=== PATIENT | male | born 1965 | race Caucasian/White ===

== ENCOUNTER 2016-10-07 09:01 | Emergency (ER) | payer MEDICARE, MEDICAID ==
--- NOTE | 2016-10-07 09:33 | RAD ---
INDICATION: Chest pain. COMPARISON: Comparison is made with prior chest x-ray study from February 28, 2016. TECHNIQUE: Dual-energy PA and lateral views of the chest were obtained. FINDINGS: The heart is within normal limits in size. Mediastinal and hilar contours appear within normal limits. The lungs are underinflated and clear. No pleural effusion or pneumothorax is seen. IMPRESSION: NO EVIDENCE FOR ACTIVE CARDIOPULMONARY DISEASE.
[2016-10-07 09:42] LABS: Hematocrit 42 % (42-52); Hemoglobin 14.2 g/dl (14.0-18.0); Mean Corpuscular HGB Conc 34 g/dl (31-36); Mean Corpuscular Hemoglobin 33 pg (27-31); Mean Corpuscular Volume 98 fL (80-94); Mean Platelet Volume 8 um3 (7.4-10.4); Red Blood Count 4.26 10^6/ul (4.0-5.4); Red Cell Distribution Width 13 % (10.5-15); White Blood Count 5.9 10^3/ul (3.5-10.8)
[2016-10-07 09:55] LABS: Albumin 4.1 g/dL (3.2-5.2); BUN/Creatinine Ratio 14.5 (8-20); Calcium 9.1 mg/dL (8.6-10.3); EGFR African American 126.6 (>60); EGFR Non-African American 98.5 (>60); Globulin 2.3 g/dL (2-4); Magnesium 1.7 mg/dL (1.9-2.7); Total Bilirubin 0.5 mg/dL (0.2-1.0); Total Protein 6.4 g/dL (6.4-8.9)
[2016-10-07 09:57] LABS: Urine Bacteria Absent (Absent); Urine Bilirubin Negative (Negative); Urine Glucose 3+(>=500 mg/dL) (Negative); Urine Nitrite Negative (Negative)
[2016-10-07] MEDS ORDERED: NS 0.9% 1000 ML* 1,000 ML IV ONE (10:24)
[2016-10-07] MEDS ORDERED: Acetaminophen TAB* 325 MG PO ONE (10:24)
[2016-10-07 11:17] LABS: Potassium 4.3 mmol/L (3.5-5.0)
[2016-10-07 11:20] LABS: TSH (Thyroid Stimulating Horm) 0.68 mcIU/mL (0.34-5.60)
[2016-10-07 13:20] VITALS: BP 130/75
--- NOTE | 2016-10-07 14:09 | ED ---
Gaby Burgos Auryana, scribed for Aleksander Gaston MD on 10/07/16 at 0922 . HPI Chest Pain - HPI Summary HPI Summary: 51 year old male presents left sided chest pain and epigastric pain s/p eating breakfast at 07:30 today. He reports that the pain is a 7/10 but does not radiate. The pain is characterized as sharp and dull. He also has nausea, and diaphoresis. Patient does reports similar symptoms in February 2016 - received stress test - negative. PMHx is significant for DM, PTSD, depression, and alcoholism. - History of Current Complaint Chief Complaint: EDChestPainROMI Time Seen by Provider: 10/07/16 09:05 Hx Obtained From: Patient Onset/Duration: Started Hours Ago, Still Present Time of Onset: 07:30 Timing: Constant, Lasting Hours Initial Severity: Moderate Current Severity: Moderate Pain Intensity: 7 Pain Scale Used: 0-10 Numeric Chest Pain Location: Discrete at: - left side of chest Chest Pain Radiates: No Character: Dull/Aching, Sharp/Stabbing Associated Signs and Symptoms: Positive: Chest Pain, Diaphoresis, Nausea Related History: Similar Episode/Dx as: - yes- SEE HPI - Additional Pertinent History Primary Care Physician: [id number] - Allergy/Home Medications Allergies/Adverse Reactions: Allergies Allergy/AdvReac Type Severity Reaction Status Date / Time Quetiapine AdvReac Severe psychiatic Verified 03/03/15 14:50 reaction Clozapine [From Clozaril] AdvReac Intermediate worsens Verified 03/03/15 14:50 diabetes NSAIDs AdvReac Intermediate Bleeding Verified 03/03/15 14:50 Metformin AdvReac cannot Verified 03/03/15 14:50 tolerate PMH/Surg Hx/FS Hx/Imm Hx Endocrine/Hematology History: Reports: Hx Diabetes, Hx Anemia Denies: Hx Thyroid Disease Cardiovascular History: Reports: Hx Angina, Hx Hypercholesterolemia, Hx Hypertension - ON DAILY MEDS Denies: Hx Congestive Heart Failure, Hx Coronary Artery Disease, Hx Myocardial Infarction, Hx Peripheral Vascular Disease, Hx Valvular Heart Disease Respiratory History: Reports: Hx Asthma, Hx Chronic Obstructive Pulmonary Disease (COPD), Hx Pneumonia, Hx Sleep Apnea - NOT USING CPAP ANY MORE, Other Respiratory Problems/Disorders - PNEUMONIA, LAST WINTER GI History: Reports: Hx Gall Bladder Disease - removed in 1999, Hx Gastroesophageal Reflux Disease - ACID REFLUX, Hx Irritable Bowel, Hx Jaundice Denies: Hx Ulcer History: Reports: Other Problems/Disorders - OCCASIONAL HESITATION Denies: Hx Renal Disease Musculoskeletal History: Reports: Hx Arthritis - GENERAL, Hx Tendonitis - SHOULDERS, Other Musculoskeletal History - ankle fs Sensory History: Reports: Hx Cataracts - RT EYE, Hx Contacts or Glasses, Other Sensory Impairments - LENS IMPLANTS BILATERAL Opthamlomology History: Reports: Hx Cataracts - RT EYE, Hx Contacts or Glasses, Other Sensory Impairments - LENS IMPLANTS BILATERAL Neurological History: Reports: Hx Developmental Delay - AUTISM, Other Neuro Impairments/Disorders - HEAD INJURY AT 4 YEARS OLD Psychiatric History: Reports: Hx Anxiety - MEDS, Hx Depression, Hx Post Traumatic Stress Disorder - self reported, Hx Bipolar Disorder, Other Psychiatric Issues/Disorders - AUTISTIC Denies: Hx Eating Disorder, Hx of Violent Episodes Against Others - Pt does have concerns that he will become aggressive with his neighbors. - Surgical History Surgery Procedure, Year, and Place: 2003 LEFT ankle FRACTURE BURNT CABINS. wisdom teeth. 1999 cholecystectomy; BURNT CABINS. 2009 LEFT EYE cataract [facility] Hx Anesthesia Reactions: No - Immunization History Date of Tetanus Vaccine: unknown Date of Influenza Vaccine: unknown Infectious Disease History: No Infectious Disease History: Denies: Hx Clostridium Difficile, Hx Hepatitis, Hx Human Immunodeficiency Virus (HIV), Hx of Known/Suspected MRSA, Hx Shingles, Hx Tuberculosis, Traveled Outside the [place] in Last 30 Days - Family History Known Family History: Positive: Diabetes - Social History Alcohol Use: None Alcohol Amount: RECOVERING ALCOHOLIC, 2003 Substance Use Type: Reports: None Hx Tobacco Use: Yes Smoking Status (MU): Heavy Every Day Tobacco Smoker Type: Cigarettes Amount Used/How Often: 1/2 PPD 27 YRS Length of Time of Smoking/Using Tobacco: 30 years Have You Smoked in the Last Year: Yes Review of Systems Positive: Skin Diaphoresis. Negative: Fever Eyes: Negative ENT: Negative Positive: Chest Pain - left sided Respiratory: Negative Positive: Abdominal Pain - epigastric , Nausea Genitourinary: Negative Musculoskeletal: Negative Skin: Negative Neurological: Negative Psychological: Normal All Other Systems Reviewed And Are Negative: Yes Physical Exam - Summary Physical Exam Summary: VITAL SIGNS: Reviewed. GENERAL: Patient is a well developed and nourished male who is lying comfortable in the stretcher. Patient is not in any acute respiratory distress. HEAD AND FACE: No signs of trauma. No ecchymosis, hematomas or skull depressions. No sinus tenderness. EYES: PERRLA, EOMI x 2, No injected conjunctiva, no nystagmus. EARS: Hearing grossly intact. Ear canals and tympanic membranes are within normal limits. MOUTH: Oropharynx within normal limits. NECK: Supple, trachea is midline, no adenopathy, no JVD, no carotid bruit, no c- spine tenderness, neck with full ROM. CHEST: Symmetric, no tenderness at palpation LUNGS: Clear to auscultation bilaterally. No wheezing or crackles. CVS: Regular rate and rhythm, S1 and S2 present, no murmurs or gallops appreciated. ABDOMEN: Soft, non-tender. No signs of distention. No rebound no guarding, and no masses palpated. Bowel sounds are normal. EXTREMITIES: FROM in all major joints, no edema, no cyanosis or clubbing. NEURO: Alert and oriented x 3. No acute neurological deficits. Speech is normal and follows commands. SKIN: Dry and warm Triage Information Reviewed: Yes Vital Signs On Initial Exam: Initial Vitals Temp Pulse Resp Pulse Ox 98.7 F 89 24 95 10/07/16 09:03 10/07/16 09:03 10/07/16 09:03 10/07/16 09:03 Vital Signs Reviewed: Yes Diagnostics - Vital Signs Vital Signs Temp Pulse Resp BP Pulse Ox 10/07/16 09:07 98.7 F 85 25 138/74 95 10/07/16 09:03 98.7 F 89 24 95 - Laboratory Lab Results: Lab Results 10/07/16 10/07/16 10/07/16 Range/Units 09:21 09:21 09:21 WBC 5.9 (3.5-10.8) 10^3/ul RBC 4.26 (4.0-5.4) 10^6/ul Hgb 14.2 (14.0-18.0) g/dl Hct 42 (42-52) % MCV 98 H (80-94) fL MCH 33 H (27-31) pg MCHC 34 (31-36) g/dl RDW 13 (10.5-15) % Plt Count 169 (150-450) 10^3/ul MPV 8 (7.4-10.4) um3 Neut % (Auto) 56.3 (38-83) % Lymph % (Auto) 32.8 (25-47) % [place] % (Auto) 6.8 (1-9) % Eos % (Auto) 3.2 (0-6) % Baso % (Auto) 0.9 (0-2) % Absolute Neuts (auto) 3.3 (1.5-7.7) 10^3/ul Absolute Lymphs (auto) 1.9 (1.0-4.8) 10^3/ul Absolute Monos (auto) 0.4 (0-0.8) 10^3/ul Absolute Eos (auto) 0.2 (0-0.6) 10^3/ul Absolute Basos (auto) 0.1 (0-0.2) 10^3/ul Absolute Nucleated RBC 0 10^3/ul Nucleated RBC % 0 Sodium 130 L (133-145) mmol/L Potassium Pending Chloride 97 L (101-111) mmol/L Carbon Dioxide 23 (22-32) mmol/L Anion Gap Pending BUN 12 (6-24) mg/dL Creatinine 0.83 (0.67-1.17) mg/dL Est GFR ( Amer) 126.6 (>60) Est GFR (Non-Af Amer) 98.5 (>60) BUN/Creatinine Ratio 14.5 (8-20) Glucose 355 H (70-100) mg/dL Lactic Acid 3.6 H* (0.5-2.0) mmol/L Calcium 9.1 (8.6-10.3) mg/dL Magnesium 1.7 L (1.9-2.7) mg/dL Total Bilirubin 0.50 (0.2-1.0) mg/dL AST Pending ALT 42 (7-52) U/L Alkaline Phosphatase 45 (34-104) U/L Total Creatine Kinase 112 (10-223) U/L CK-MB (CK-2) 3.2 (0.6-6.3) ng/mL Troponin I 0.00 (<0.04) ng/mL B-Natriuretic Peptide ( - 100) pg/mL Total Protein 6.4 (6.4-8.9) g/dL Albumin 4.1 (3.2-5.2) g/dL Globulin 2.3 (2-4) g/dL Albumin/Globulin Ratio 1.8 (1-3) TSH Pending Urine Color Urine Appearance Urine pH (5-9) Ur Specific [place] (1.010-1.030) Urine Protein (Negative) Urine Ketones (Negative) Urine Blood (Negative) Urine Nitrate (Negative) Urine Bilirubin (Negative) Urine Urobilinogen (Negative) Ur Leukocyte Esterase (Negative) Urine WBC (Auto) (Absent) Urine RBC (Auto) (Absent) Urine Bacteria (Absent) Urine Glucose (Negative) 10/07/16 10/07/16 Range/Units 09:21 09:30 WBC (3.5-10.8) 10^3/ul RBC (4.0-5.4) 10^6/ul Hgb (14.0-18.0) g/dl Hct (42-52) % MCV (80-94) fL MCH (27-31) pg MCHC (31-36) g/dl RDW (10.5-15) % Plt Count (150-450) 10^3/ul MPV (7.4-10.4) um3 Neut % (Auto) (38-83) % Lymph % (Auto) (25-47) % [place] % (Auto) (1-9) % Eos % (Auto) (0-6) % Baso % (Auto) (0-2) % Absolute Neuts (auto) (1.5-7.7) 10^3/ul Absolute Lymphs (auto) (1.0-4.8) 10^3/ul Absolute Monos (auto) (0-0.8) 10^3/ul Absolute Eos (auto) (0-0.6) 10^3/ul Absolute Basos (auto) (0-0.2) 10^3/ul Absolute Nucleated RBC 10^3/ul Nucleated RBC % Sodium (133-145) mmol/L Potassium Chloride (101-111) mmol/L Carbon Dioxide (22-32) mmol/L Anion Gap BUN (6-24) mg/dL Creatinine (0.67-1.17) mg/dL Est GFR ( Amer) (>60) Est GFR (Non-Af Amer) (>60) BUN/Creatinine Ratio (8-20) Glucose (70-100) mg/dL Lactic Acid (0.5-2.0) mmol/L Calcium (8.6-10.3) mg/dL Magnesium (1.9-2.7) mg/dL Total Bilirubin (0.2-1.0) mg/dL AST ALT (7-52) U/L Alkaline Phosphatase (34-104) U/L Total Creatine Kinase (10-223) U/L CK-MB (CK-2) (0.6-6.3) ng/mL Troponin I (<0.04) ng/mL B-Natriuretic Peptide 18 ( - 100) pg/mL Total Protein (6.4-8.9) g/dL Albumin (3.2-5.2) g/dL Globulin (2-4) g/dL Albumin/Globulin Ratio (1-3) TSH Urine Color Yellow Urine Appearance Clear Urine pH 5.0 (5-9) Ur Specific [place] 1.012 (1.010-1.030) Urine Protein Negative (Negative) Urine Ketones Negative (Negative) Urine Blood 1+ H (Negative) Urine Nitrate Negative (Negative) Urine Bilirubin Negative (Negative) Urine Urobilinogen Negative (Negative) Ur Leukocyte Esterase Negative (Negative) Urine WBC (Auto) Absent (Absent) Urine RBC (Auto) Absent (Absent) Urine Bacteria Absent (Absent) Urine Glucose 3+(>=500 mg/dl) H (Negative) Result Diagrams: 10/07/16 09:21 10/07/16 09:21 Lab Statement: Any lab studies that have been ordered have been reviewed, and results considered in the medical decision making process. - Radiology CXR Xray Interpretation: No Acute Changes Radiology Interpretation Completed By: Radiologist - EKG 09:37 EKG Interpretation: sinus rhythm @ 84 BPM, no ST elevation Chest Pain Course/Dx - Course Assessment/Plan: 51 year old male presents left sided chest pain and epigastric pain s/p eating breakfast at 07:30 today. He reports that the pain is a 7/10 but does not radiate. The pain is characterized as sharp and dull. He also has nausea, and diaphoresis. Patient does reports similar symptoms in February 2016 - received stress test - negative. PMHx is significant for DM, PTSD, depression , and alcoholism. Test result without any significant abnormalities except sodium 130, glucose 255, troponin #1 0.00, and troponin #2 0.00. CXR-NAD. UA negative for U.T.I. EKG shows no ST elevations. In ED course, I was going to give insulin but patient decided to take his own humolog. He will keep checking fingers sticks every 4 hours and use humolog as indicated. At this point, the patient is asymptomatic and I will r/o VA with 2x troponins. Patient had a stress test in February (2015) that was negative. Therefore, since the patient is asymptomatic , we will discharge the patient home with follow up with PCP. 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 He was advised to return to the ED if develops another episode of CP with nausea, vomiting or any diaphoresis. All questions were answered at patient satisfaction. There were no further complaints or concerns. Lung exam before discharge: CTA B/L. Good air exchange. No wheezing or crackles heard. CVS: S1 and S2 present. No murmurs appreciated. Patient is alert and oriented x 3. Patient is hemodynamically stable. Patient will be discharged home with follow up PCP in the next 2-3 days - Chest Pain Differential Diagnosis/HQI/PQRI: Acute VA, ACS, Angina, CHF, Chest Wall, GI Disease, Lower Respiratory Infection - Diagnoses Provider Diagnoses: Chest pain, Hyperglycemia Discharge - Discharge Plan Condition: Stable Disposition: HOME Patient Education Materials: Chest Pain (ED) Referrals: Chinmay Pinto MD [Primary Care Provider] - 2 Days The documentation as recorded by the Gaby dunham Auryana accurately reflects the service I personally performed and the decisions made by me, Aleksander Gaston MD.
== END 2016-10-07 13:32 | disposition home or self-care (01) ==
LOC: ED 09:01
DX: R07.9 Chest pain, unspecified (principal); R11.0 Nausea
CPT/HCPCS: 36415; 71020; 80053; 81003; 81015; 82550; 82553; 83605; 83735; 83880; 84443; 84484; 85025; 93005; 99282; A9270-GY

== ENCOUNTER 2016-11-02 11:43 | Emergency (ER) | payer MEDICARE, MEDICAID ==
[2016-11-02] MEDS ORDERED: NS 0.9% 1000 ML* 1,000 ML IV ONE (12:06)
--- NOTE | 2016-11-02 12:32 | RAD ---
HISTORY: Chest pain COMPARISONS: October 07, 2016 VIEWS:1: Single frontal portable view of the chest at 12:20 PM FINDINGS: LINES AND TUBES: None. CARDIOMEDIASTINAL SILHOUETTE: The cardiomediastinal silhouette is normal for portable technique. PLEURA: The costophrenic angles are sharp. No pleural abnormalities are noted. LUNG PARENCHYMA: The lungs are clear. ABDOMEN: The upper abdomen is clear. There is no subphrenic gas. BONES AND SOFT TISSUES: No bone or soft tissue abnormalities are noted. IMPRESSION: NO ACTIVE CARDIOPULMONARY DISEASE.
[2016-11-02 12:46] LABS: Hematocrit 45 % (42-52); Hemoglobin 15.7 g/dl (14.0-18.0); Mean Corpuscular HGB Conc 35 g/dl (31-36); Mean Corpuscular Hemoglobin 33 pg (27-31); Mean Corpuscular Volume 96 fL (80-94); Mean Platelet Volume 8 um3 (7.4-10.4); Red Cell Distribution Width 13 % (10.5-15); White Blood Count 8.5 10^3/ul (3.5-10.8)
[2016-11-02] MEDS ORDERED: hydrOXYzine HCL TAB* 50 MG PO ONE (12:55)
[2016-11-02 13:03] LABS: ALT 37 U/L (7-52); Albumin 4.6 g/dL (3.2-5.2); Alkaline Phosphatase 42 U/L (34-104); BUN/Creatinine Ratio 22.4 (8-20); Blood Urea Nitrogen 22 mg/dL (6-24); CO2 Carbon Dioxide 25 mmol/L (22-32); Calcium 9.7 mg/dL (8.6-10.3); Chloride 96 mmol/L (101-111); Creatine Kinase 92 U/L (10-223); EGFR African American 104.5 (>60); EGFR Non-African American 81.3 (>60); Globulin 2.7 g/dL (2-4); Glucose 211 mg/dL (70-100); Sodium 129 mmol/L (133-145); Total Protein 7.3 g/dL (6.4-8.9)
[2016-11-02 13:15] LABS: Anion Gap 8 mmol/L (2-11)
[2016-11-02 13:23] LABS: TSH (Thyroid Stimulating Horm) 0.76 mcIU/mL (0.34-5.60)
[2016-11-02] MEDS ORDERED: LORazepam INJ* 2 MG/ML 1 ML VIAL IV PUSH ONE (13:51)
[2016-11-02] MEDS ORDERED: HYDROcodone/ACETAMIN 5-325 MG* 1 TAB PO ONE (13:52)
[2016-11-02 14:44] LABS: Urine Bilirubin Negative (Negative); Urine Glucose 3+(>=500 mg/dL) (Negative); Urine Nitrite Negative (Negative)
[2016-11-02 14:47] LABS: Magnesium 2.1 mg/dL (1.9-2.7)
[2016-11-02 15:40] VITALS: BP 120/79
--- NOTE | 2016-11-03 18:17 | ED ---
Ilya Burgos Rebecca, scribed for Aleksander Gaston MD on 11/02/16 at 1206 . HPI Chest Pain - HPI Summary HPI Summary: Pt is a 51 yo male BIBA, presenting to the ED c/o sharp, central chest pain, rating at an 8/10. It began in the afternoon the day before visit. 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 Chest pain is aggravated by palpation. Pt also states feelings of anxiety and anger, starting from the previous night, due to his autism. He says it feels like it is "speeding up inside" his head. Pt c/o of other Sx including nausea, abdominal pain, HARDWICK, leg pain, back pain, and cold sweats. Denies any vomiting or coughing. - History of Current Complaint Chief Complaint: EDChestPainROMI Time Seen by Provider: 11/02/16 12:02 Hx Obtained From: Patient Onset/Duration: Still Present Timing: Intermittent, Lasting Hours Current Severity: Severe Pain Intensity: 8 Pain Scale Used: 0-10 Numeric Chest Pain Location: Discrete at: - Central chest Character: Sharp/Stabbing Aggravating Factor(s): Exertion, Other: - Palpations Alleviating Factor(s): Nothing Associated Signs and Symptoms: Positive: Headaches, Diaphoresis - Cold sweats, Nausea, Back Pain, Abdominal Pain - Additional Pertinent History Primary Care Physician: [id number] - Allergy/Home Medications Allergies/Adverse Reactions: Allergies Allergy/AdvReac Type Severity Reaction Status Date / Time Quetiapine AdvReac Severe psychiatic Verified 03/03/15 14:50 reaction Clozapine [From Clozaril] AdvReac Intermediate worsens Verified 03/03/15 14:50 diabetes NSAIDs AdvReac Intermediate Bleeding Verified 03/03/15 14:50 Metformin AdvReac cannot Verified 03/03/15 14:50 tolerate PMH/Surg Hx/FS Hx/Imm Hx Endocrine/Hematology History: Reports: Hx Diabetes, Hx Anemia Denies: Hx Thyroid Disease Cardiovascular History: Reports: Hx Angina, Hx Hypercholesterolemia, Hx Hypertension - ON DAILY MEDS Denies: Hx Congestive Heart Failure, Hx Coronary Artery Disease, Hx Myocardial Infarction, Hx Peripheral Vascular Disease, Hx Valvular Heart Disease Respiratory History: Reports: Hx Asthma, Hx Chronic Obstructive Pulmonary Disease (COPD), Hx Pneumonia, Hx Sleep Apnea - NOT USING CPAP ANY MORE, Other Respiratory Problems/Disorders - PNEUMONIA, LAST WINTER GI History: Reports: Hx Gall Bladder Disease - removed in 1999, Hx Gastroesophageal Reflux Disease - ACID REFLUX, Hx Irritable Bowel, Hx Jaundice Denies: Hx Ulcer History: Reports: Other Problems/Disorders - OCCASIONAL HESITATION Denies: Hx Renal Disease Musculoskeletal History: Reports: Hx Arthritis - GENERAL, Hx Tendonitis - SHOULDERS, Other Musculoskeletal History - ankle fs Sensory History: Reports: Hx Cataracts - RT EYE, Hx Contacts or Glasses, Other Sensory Impairments - LENS IMPLANTS BILATERAL Opthamlomology History: Reports: Hx Cataracts - RT EYE, Hx Contacts or Glasses, Other Sensory Impairments - LENS IMPLANTS BILATERAL Neurological History: Reports: Hx Developmental Delay - AUTISM, Other Neuro Impairments/Disorders - HEAD INJURY AT 4 YEARS OLD Psychiatric History: Reports: Hx Anxiety - MEDS, Hx Depression, Hx Post Traumatic Stress Disorder - self reported, Hx Bipolar Disorder, Other Psychiatric Issues/Disorders - AUTISTIC Denies: Hx Eating Disorder, Hx of Violent Episodes Against Others - Pt does have concerns that he will become aggressive with his neighbors. - Surgical History Surgery Procedure, Year, and Place: 2003 LEFT ankle FRACTURE [facility]. wisdom teeth. 1999 cholecystectomy; [facility]. 2009 LEFT EYE cataract [facility] Hx Anesthesia Reactions: No - Immunization History Date of Tetanus Vaccine: unknown Date of Influenza Vaccine: unknown Infectious Disease History: No Infectious Disease History: Denies: Hx Clostridium Difficile, Hx Hepatitis, Hx Human Immunodeficiency Virus (HIV), Hx of Known/Suspected MRSA, Hx Shingles, Hx Tuberculosis, Traveled Outside the [place] in Last 30 Days - Family History Known Family History: Positive: Diabetes - Social History Alcohol Use: None Alcohol Amount: RECOVERING ALCOHOLIC, 2003 Substance Use Type: Reports: None Hx Tobacco Use: Yes Smoking Status (MU): Heavy Every Day Tobacco Smoker Type: Cigarettes Amount Used/How Often: 1/2 PPD 27 YRS Length of Time of Smoking/Using Tobacco: 30 years Have You Smoked in the Last Year: Yes Review of Systems Positive: Skin Diaphoresis - Cold sweats Positive: Chest Pain - Central, sharp pain Negative: Cough Positive: Abdominal Pain, Nausea. Negative: Vomiting Positive: Other - Leg and Back pain Positive: Headache Positive: Anxious, Other - Anger All Other Systems Reviewed And Are Negative: Yes Physical Exam - Summary Physical Exam Summary: VITAL SIGNS: Reviewed. GENERAL: ~Patient is an obese male who is lying comfortable in the stretcher. ~ Patient is not in any acute respiratory distress. HEAD AND FACE: No signs of trauma. ~No ecchymosis, hematomas or skull depressions. No sinus tenderness. EYES: PERRLA, EOMI x 2, No injected conjunctiva, no nystagmus. EARS: Hearing grossly intact. Ear canals and tympanic membranes are within normal limits. MOUTH: Oropharynx within normal limits. NECK: Supple, trachea is midline, no adenopathy, no JVD, no carotid bruit, no c- spine tenderness, neck with full ROM. CHEST: Symmetric. Reproducible chest pain. LUNGS: Clear to auscultation bilaterally. No wheezing or crackles. CVS: Regular rate and rhythm, S1 and S2 present, no murmurs or gallops appreciated. ABDOMEN: Soft, non-tender. No signs of distention. No rebound no guarding, and no masses palpated. Bowel sounds are normal. EXTREMITIES: FROM in all major joints, no edema, no cyanosis or clubbing. No swelling NEURO: Alert and oriented x 3. No acute neurological deficits. Speech is normal and follows commands. SKIN: Dry and warm Triage Information Reviewed: Yes Vital Signs On Initial Exam: Initial Vitals Temp Pulse Resp BP Pulse Ox 97.5 F 86 26 129/77 96 11/02/16 11:47 11/02/16 11:47 11/02/16 11:47 11/02/16 11:47 11/02/16 11:47 Vital Signs Reviewed: Yes Diagnostics - Vital Signs Vital Signs Temp Pulse Resp BP Pulse Ox 11/02/16 11:47 97.5 F 86 26 129/77 96 - Laboratory Lab Results: Lab Results 11/02/16 11/02/16 11/02/16 Range/Units 12:35 12:35 12:35 WBC 8.5 (3.5-10.8) 10^3/ul RBC 4.70 (4.0-5.4) 10^6/ul Hgb 15.7 (14.0-18.0) g/dl Hct 45 (42-52) % MCV 96 H (80-94) fL MCH 33 H (27-31) pg MCHC 35 (31-36) g/dl RDW 13 (10.5-15) % Plt Count 193 (150-450) 10^3/ul MPV 8 (7.4-10.4) um3 Neut % (Auto) 62.4 (38-83) % Lymph % (Auto) 27.2 (25-47) % Falls % (Auto) 6.8 (1-9) % Eos % (Auto) 2.0 (0-6) % Baso % (Auto) 1.6 (0-2) % Absolute Neuts (auto) 5.3 (1.5-7.7) 10^3/ul Absolute Lymphs (auto) 2.3 (1.0-4.8) 10^3/ul Absolute Monos (auto) 0.6 (0-0.8) 10^3/ul Absolute Eos (auto) 0.2 (0-0.6) 10^3/ul Absolute Basos (auto) 0.1 (0-0.2) 10^3/ul Absolute Nucleated RBC 0.01 10^3/ul Nucleated RBC % 0.2 Sodium 129 L (133-145) mmol/L Potassium TNP Chloride 96 L (101-111) mmol/L Carbon Dioxide 25 (22-32) mmol/L Anion Gap 8 (2-11) mmol/L BUN 22 (6-24) mg/dL Creatinine 0.98 (0.67-1.17) mg/dL Est GFR ( Amer) 104.5 (>60) Est GFR (Non-Af Amer) 81.3 (>60) BUN/Creatinine Ratio 22.4 H (8-20) Glucose 211 H (70-100) mg/dL Lactic Acid 1.4 (0.5-2.0) mmol/L Calcium 9.7 (8.6-10.3) mg/dL Magnesium TNP Total Bilirubin 0.40 (0.2-1.0) mg/dL AST TNP ALT 37 (7-52) U/L Alkaline Phosphatase 42 (34-104) U/L Total Creatine Kinase 92 (10-223) U/L CK-MB (CK-2) 2.7 (0.6-6.3) ng/mL Troponin I 0.00 (<0.04) ng/mL B-Natriuretic Peptide ( - 100) pg/mL Total Protein 7.3 (6.4-8.9) g/dL Albumin 4.6 (3.2-5.2) g/dL Globulin 2.7 (2-4) g/dL Albumin/Globulin Ratio 1.7 (1-3) TSH 0.76 (0.34-5.60) mcIU/mL Thyroxine (T4) 5.50 L (6.09-12.23) mcg/mL Urine Color Urine Appearance Urine pH (5-9) Ur Specific [place] (1.010-1.030) Urine Protein (Negative) Urine Ketones (Negative) Urine Blood (Negative) Urine Nitrate (Negative) Urine Bilirubin (Negative) Urine Urobilinogen (Negative) Ur Leukocyte Esterase (Negative) Urine Glucose (Negative) 11/02/16 11/02/16 11/02/16 Range/Units 12:35 13:55 14:30 WBC (3.5-10.8) 10^3/ul RBC (4.0-5.4) 10^6/ul Hgb (14.0-18.0) g/dl Hct (42-52) % MCV (80-94) fL MCH (27-31) pg MCHC (31-36) g/dl RDW (10.5-15) % Plt Count (150-450) 10^3/ul MPV (7.4-10.4) um3 Neut % (Auto) (38-83) % Lymph % (Auto) (25-47) % Falls % (Auto) (1-9) % Eos % (Auto) (0-6) % Baso % (Auto) (0-2) % Absolute Neuts (auto) (1.5-7.7) 10^3/ul Absolute Lymphs (auto) (1.0-4.8) 10^3/ul Absolute Monos (auto) (0-0.8) 10^3/ul Absolute Eos (auto) (0-0.6) 10^3/ul Absolute Basos (auto) (0-0.2) 10^3/ul Absolute Nucleated RBC 10^3/ul Nucleated RBC % Sodium (133-145) mmol/L Potassium 4.2 Chloride (101-111) mmol/L Carbon Dioxide (22-32) mmol/L Anion Gap (2-11) mmol/L BUN (6-24) mg/dL Creatinine (0.67-1.17) mg/dL Est GFR ( Amer) (>60) Est GFR (Non-Af Amer) (>60) BUN/Creatinine Ratio (8-20) Glucose (70-100) mg/dL Lactic Acid (0.5-2.0) mmol/L Calcium (8.6-10.3) mg/dL Magnesium 2.1 Total Bilirubin (0.2-1.0) mg/dL AST 37 ALT (7-52) U/L Alkaline Phosphatase (34-104) U/L Total Creatine Kinase (10-223) U/L CK-MB (CK-2) (0.6-6.3) ng/mL Troponin I (<0.04) ng/mL B-Natriuretic Peptide 24 ( - 100) pg/mL Total Protein (6.4-8.9) g/dL Albumin (3.2-5.2) g/dL Globulin (2-4) g/dL Albumin/Globulin Ratio (1-3) TSH (0.34-5.60) mcIU/mL Thyroxine (T4) (6.09-12.23) mcg/mL Urine Color Straw Urine Appearance Clear Urine pH 5.0 (5-9) Ur Specific [place] 1.012 (1.010-1.030) Urine Protein Negative (Negative) Urine Ketones Negative (Negative) Urine Blood Negative (Negative) Urine Nitrate Negative (Negative) Urine Bilirubin Negative (Negative) Urine Urobilinogen Negative (Negative) Ur Leukocyte Esterase Negative (Negative) Urine Glucose 3+(>=500 mg/dl) H (Negative) 11/02/16 Range/Units 15:15 WBC (3.5-10.8) 10^3/ul RBC (4.0-5.4) 10^6/ul Hgb (14.0-18.0) g/dl Hct (42-52) % MCV (80-94) fL MCH (27-31) pg MCHC (31-36) g/dl RDW (10.5-15) % Plt Count (150-450) 10^3/ul MPV (7.4-10.4) um3 Neut % (Auto) (38-83) % Lymph % (Auto) (25-47) % Falls % (Auto) (1-9) % Eos % (Auto) (0-6) % Baso % (Auto) (0-2) % Absolute Neuts (auto) (1.5-7.7) 10^3/ul Absolute Lymphs (auto) (1.0-4.8) 10^3/ul Absolute Monos (auto) (0-0.8) 10^3/ul Absolute Eos (auto) (0-0.6) 10^3/ul Absolute Basos (auto) (0-0.2) 10^3/ul Absolute Nucleated RBC 10^3/ul Nucleated RBC % Sodium (133-145) mmol/L Potassium Chloride (101-111) mmol/L Carbon Dioxide (22-32) mmol/L Anion Gap (2-11) mmol/L BUN (6-24) mg/dL Creatinine (0.67-1.17) mg/dL Est GFR ( Amer) (>60) Est GFR (Non-Af Amer) (>60) BUN/Creatinine Ratio (8-20) Glucose (70-100) mg/dL Lactic Acid (0.5-2.0) mmol/L Calcium (8.6-10.3) mg/dL Magnesium Total Bilirubin (0.2-1.0) mg/dL AST ALT (7-52) U/L Alkaline Phosphatase (34-104) U/L Total Creatine Kinase (10-223) U/L CK-MB (CK-2) (0.6-6.3) ng/mL Troponin I 0.00 (<0.04) ng/mL B-Natriuretic Peptide ( - 100) pg/mL Total Protein (6.4-8.9) g/dL Albumin (3.2-5.2) g/dL Globulin (2-4) g/dL Albumin/Globulin Ratio (1-3) TSH (0.34-5.60) mcIU/mL Thyroxine (T4) (6.09-12.23) mcg/mL Urine Color Urine Appearance Urine pH (5-9) Ur Specific [place] (1.010-1.030) Urine Protein (Negative) Urine Ketones (Negative) Urine Blood (Negative) Urine Nitrate (Negative) Urine Bilirubin (Negative) Urine Urobilinogen (Negative) Ur Leukocyte Esterase (Negative) Urine Glucose (Negative) Result Diagrams: 11/02/16 12:35 11/02/16 13:55 Lab Statement: Any lab studies that have been ordered have been reviewed, and results considered in the medical decision making process. - Radiology CXR Xray Interpretation: No Acute Changes - NO ACTIVE CARDIOPULMONARY DISEASE. Radiology Interpretation Completed By: Radiologist - EKG 1457 Cardiac Rate: NL - 79 bpm EKG Rhythm: Sinus Rhythm ST Segment: Normal EKG Interpretation: No ST elevations, Q waves in V2 Re-Evaluation - Re-Evaluation First Eval Re-Evaluation Time: 15:56 Change: Improved Comment: Has no CP or pain anywhere. Anxiety is gone after administration of Ativan. Chest Pain Course/Dx - Course Assessment/Plan: Pt is a 51 yo male SUSANA, presenting to the ED c/o sharp, central chest pain, rating at an 8/10. It began in the afternoon the day before visit. 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 Chest pain is aggravated by palpation. Pt also states feelings of anxiety and anger, starting from the previous night, due to his autism. He says it feels like it is "speeding up inside" his head. Pt c/o of other Sx including nausea, abdominal pain, HARDWICK, leg pain, back pain, and cold sweats. Denies any vomiting or coughing. The pt comes in with multiple complaints and it is difficult to localize one complaint. Test results w/o any significant abnormalities except sodium of 129, glucose of 211, T4 of 5.5. 1st troponin is 0.00, 4 hours later troponin is also 0.00. The pt reports that he is very anxious, therefore he was given his usual Atarax and a dose of Ativan after which the pt reports that his anxiety is resolved. He was also given Toradol for the CP and sx resolved. At this point, the pt is asymptomatic and I have low suspicion for ACS since his sx are resolved. However, the pt will be requested to follow up with his PCP or return to the ED is any sx return or worsen. He is hemodynamically stable and A& Ox3. I discussed all the findings and test results with the patient. Patient was instructed to return to the emergency room immediately if any of the symptoms return or worsens. They were explained the possibility of an early abdominal pathology which was not detected at this time despite the physical exam and testing. They understand and agree. Abdominal exam before discharge: Soft, NT. No signs of distention. BS present. No rebound no guarding, and no masses palpated. Patient is alert and oriented and hemodynamically stable. Patient is to follow up with primary care physician in the next 2 to 3 days. Patient agree and understands. - Chest Pain Differential Diagnosis/HQI/PQRI: Acute MD, ACS, Angina, CHF, Chest Wall, GI Disease, Lower Respiratory Infection - Diagnoses Provider Diagnoses: Chest pain, Anxiety Discharge - Discharge Plan Condition: Stable Disposition: HOME Patient Education Materials: Chest Pain (ED), Anxiety (ED) Referrals: Chinmay Pinto MD [Primary Care Provider] - 3 Days The documentation as recorded by the Ilya dunham Rebecca accurately reflects the service I personally performed and the decisions made by Alek abdullahi Walter, MD.
== END 2016-11-02 16:10 | disposition home or self-care (01) ==
LOC: ED 11:43
DX: R07.9 Chest pain, unspecified (principal); F41.9 Anxiety disorder, unspecified; R51 Headache; R11.0 Nausea; M54.9 Dorsalgia, unspecified; F17.210 Nicotine dependence, cigarettes, uncomplicated
CPT/HCPCS: 36415; 71010; 80053; 81003; 82550; 82553; 83605; 83735; 83880; 84436; 84443; 84484; 85025; 93005; 99283; A9270-GY; J2060

== ENCOUNTER 2017-11-07 16:52 | Emergency (ER) | payer MEDICARE, MEDICAID ==
[2017-11-07] MEDS ORDERED: NS 0.9% 1000 ML* 1,000 ML IV ONE (17:44)
[2017-11-07] MEDS ORDERED: Albuterol/Ipratropium NEB.SOL* Albuterol 2.5 MG/Ipratropium 0.5 MG 3 ML INH ONE (17:44)
[2017-11-07] MEDS ORDERED: Aspirin 81 mg CHEW TAB* 81 MG TAB.CHEW PO ONE (17:44)
[2017-11-07] MEDS ORDERED: Ketorolac INJ* 30 MG/ML 1 ML VIAL IV PUSH ONE (17:44)
[2017-11-07] MEDS ORDERED: LORazepam INJ* 2 MG/ML 1 ML VIAL IV PUSH ONE ×2 (17:45→19:42)
--- NOTE | 2017-11-07 17:45 | ED ---
Complex/Multi-Sys Presentation - HPI Summary HPI Summary: This patient is a 52 year old M presenting to ED with a chief complaint of sharp /stabbing CP, abdominal pain, and pelvic pain since yesterday. The patient rates the pain 7/10 in severity. Symptoms aggravated by stress. Symptoms alleviated by nothing. Patient reports HARDWICK and pain with urination. He reports he has had 2 BM today. He has been seen for these sx in the past and was told they were stress related. He reports he is stressed from [employer] and that he can t get a job. He lives in [facility] but doesnt quite like it there. PMHx of DM, takes baby ASA but has not taken one today (takes them nightly). - History Of Current Complaint Chief Complaint: EDGeneral Time Seen by Provider: 11/07/17 17:30 Hx Obtained From: Patient Onset/Duration: Sudden Onset, Lasting Days - since yesterday, Still Present Timing: Constant, Days - since yesterday Severity Currently: Moderate Severity Initially: Moderate Aggravating Factor(s): nothing Alleviating Factor(s): nothing Associated Signs And Symptoms: Positive: Other - sharp/stabbing CP, abdominal pain, pelvic pain, HARDWICK, and pain with urination - Allergies/Home Medications Allergies/Adverse Reactions: Allergies Allergy/AdvReac Type Severity Reaction Status Date / Time MS Quetiapine [Quetiapine] AdvReac Severe psychiatic Verified 03/03/15 14:50 reaction MS Clozapine [From Clozaril] AdvReac Intermediate worsens Verified 03/03/15 14: 50 diabetes MS NSAIDs [NSAIDs] AdvReac Intermediate Bleeding Verified 03/03/15 14:50 MS Metformin [Metformin] AdvReac cannot Verified 03/03/15 14:50 tolerate Home Medications: Home Medications Albuterol/Ipratropium RESP(NF) [Combivent Respimat(NF)] 1 puff INH QID 11/07/17 [History Confirmed 11/07/17] Aspirin EC TAB* [Ecotrin EC Low Dose 81 MG*] 81 mg PO DAILY 11/07/17 [History Confirmed 11/07/17] Bisacodyl SUPP* [Dulcolax Supp*] 10 mg DE DAILY PRN 11/07/17 [History Confirmed 11/07/17] Clobetasol Propionate/Emoll [Clobetasol Propionate Emo] 0.05 % TOPICAL BID PRN 11/07/17 [History Confirmed 11/07/17] Clotrimazole 1% CREAM* [Clotrimazole 1%*] 1 applic TOPICAL BID 11/07/17 [ History Confirmed 11/07/17] Diclofenac Sodium EC TAB* [Voltaren EC TAB*] 50 mg PO TID PRN 11/07/17 [History Confirmed 11/07/17] Doxepin HCl 150 mg PO BEDTIME 11/07/17 [History Confirmed 11/07/17] Empagliflozin [Jardiance] 25 mg PO DAILY 11/07/17 [History Confirmed 11/07/17] Fluticasone HFA 220 mcg(NF) [Flovent HFA 220 Mcg(NF)] 2 puff INH DAILY 11/07/17 [History Confirmed 11/07/17] Gabapentin CAP(*) [Neurontin 300 CAP(*)] 300 mg PO TID 11/07/17 [History Confirmed 11/07/17] Gabapentin CAP(*) [Neurontin 300 CAP(*)] 600 mg PO BEDTIME 11/07/17 [History Confirmed 11/07/17] Hydrocortisone 1% CREAM* [Hytone Cream 1%*] 1 applic TOPICAL DAILY PRN 11/07/17 [History Confirmed 11/07/17] Ibuprofen TAB* [Advil TAB*] 200 mg PO Q6H PRN 11/07/17 [History Confirmed ] L.acidoph,Paracasei, B.lactis [Probiotic] 1 cap PO DAILY 11/07/17 [History Confirmed 11/07/17] Mupirocin 2% OINT* [Bactroban 2 % Oint*] 1 applic TOPICAL TID 11/07/17 [History Confirmed 11/07/17] Nicotine Inhaler* 10 mg INH Q2H PRN 11/07/17 [History Confirmed 11/07/17] [id number] Ethyl Esters (NF) [Lovaza (NF)] 2 gm PO BID 11/07/17 [History Confirmed 11/07/17] Pravastatin (NF) [Pravachol (NF)] 20 mg PO DAILY 11/07/17 [History Confirmed ] Testosterone Gel 25 mg (Nf) [Testosterone Gel 25 mg/2.5 g] 25 mg TOPICAL QAM [History Confirmed 11/07/17] Testosterone [Axiron] 30 mg TOPICAL QAM 11/07/17 [History Confirmed 11/07/17] diPHENhydraMINE PO* [Benadryl PO 25 MG TAB*] 25 mg PO TID PRN 11/07/17 [History Confirmed 11/07/17] PMH/Surg Hx/FS Hx/Imm Hx Endocrine/Hematology History: Reports: Hx Diabetes, Hx Anemia Denies: Hx Thyroid Disease Cardiovascular History: Reports: Hx Angina, Hx Hypercholesterolemia, Hx Hypertension - ON DAILY MEDS Denies: Hx Congestive Heart Failure, Hx Coronary Artery Disease, Hx Myocardial Infarction, Hx Peripheral Vascular Disease, Hx Valvular Heart Disease Respiratory History: Reports: Hx Asthma, Hx Chronic Obstructive Pulmonary Disease (COPD), Hx Pneumonia, Hx Sleep Apnea - NOT USING CPAP ANY MORE, Other Respiratory Problems/Disorders - PNEUMONIA, LAST WINTER GI History: Reports: Hx Gall Bladder Disease - removed in 1999, Hx Gastroesophageal Reflux Disease - ACID REFLUX, Hx Irritable Bowel, Hx Jaundice Denies: Hx Ulcer History: Reports: Other Problems/Disorders - OCCASIONAL HESITATION Denies: Hx Renal Disease Musculoskeletal History: Reports: Hx Arthritis - GENERAL, Hx Tendonitis - SHOULDERS, Other Musculoskeletal History - ankle fs Sensory History: Reports: Hx Cataracts - RT EYE, Hx Contacts or Glasses, Other Sensory Impairments - LENS IMPLANTS BILATERAL Opthamlomology History: Reports: Hx Cataracts - RT EYE, Hx Contacts or Glasses, Other Sensory Impairments - LENS IMPLANTS BILATERAL Neurological History: Reports: Hx Developmental Delay - AUTISM, Other Neuro Impairments/Disorders - HEAD INJURY AT 4 YEARS OLD Psychiatric History: Reports: Hx Anxiety - MEDS, Hx Depression, Hx Post Traumatic Stress Disorder - self reported, Hx Bipolar Disorder, Other Psychiatric Issues/Disorders - AUTISTIC Denies: Hx Eating Disorder, Hx of Violent Episodes Against Others - Pt does have concerns that he will become aggressive with his neighbors. - Surgical History Surgery Procedure, Year, and Place: 2003 LEFT ankle FRACTURE [facility]. wisdom teeth. 1999 cholecystectomy; [facility]. 2009 LEFT EYE cataract [facility] Hx Anesthesia Reactions: No - Immunization History Date of Tetanus Vaccine: unknown Date of Influenza Vaccine: unknown Immunizations Up to Date: Yes Infectious Disease History: No Infectious Disease History: Denies: Hx Clostridium Difficile, Hx Hepatitis, Hx Human Immunodeficiency Virus (HIV), Hx of Known/Suspected MRSA, Hx Shingles, Hx Tuberculosis, Traveled Outside the [place] in Last 30 Days - Family History Known Family History: Positive: Diabetes - Social History Alcohol Use: None Alcohol Amount: RECOVERING ALCOHOLIC, 2005 Substance Use Type: Reports: None Hx Tobacco Use: Yes Smoking Status (MU): Heavy Every Day Tobacco Smoker Type: Cigarettes Amount Used/How Often: 1/2 PPD 27 YRS Length of Time of Smoking/Using Tobacco: 30 years Have You Smoked in the Last Year: Yes Review of Systems Positive: Chest Pain - sharp/stabbing Positive: Abdominal Pain Positive: pain - with urination, other - pelvic pain Positive: Other - stressed from [employer] and that he can't get a job All Other Systems Reviewed And Are Negative: Yes Physical Exam - Summary Physical Exam Summary: Appearance: Well appearing, no pain distress Skin: warm, dry, reflects adequate perfusion Head/face: normal Eyes: EOMI, [place] ENT: Mucous membranes are dry Neck: supple, non-tender Respiratory: Diffuse wheezes in his chest, breath sounds present Cardiovascular: RRR, pulses symmetrical Abdomen: non-tender, soft Bowel Sounds: present Musculoskeletal: normal, strength/ROM intact Neuro: normal, sensory motor intact, A&Ox3 Triage Information Reviewed: Yes Vital Signs On Initial Exam: Initial Vitals Temp Pulse Resp BP Pulse Ox 98.0 F 77 18 144/98 94 11/07/17 16:56 11/07/17 16:56 11/07/17 16:56 11/07/17 16:56 11/07/17 16:56 Vital Signs Reviewed: Yes Diagnostics - Vital Signs Vital Signs Temp Pulse Resp BP Pulse Ox 11/07/17 16:56 98.0 F 77 18 144/98 94 - Laboratory Result Diagrams: 11/07/17 18:55 11/07/17 18:55 Lab Statement: Any lab studies that have been ordered have been reviewed, and results considered in the medical decision making process. - Radiology CXR Radiology Interpretation Completed By: ED Physician - No acute disease. Pending radiologist official interpretation. See [facility]. - EKG 1754 Cardiac Rate: NL - 77 BPM EKG Rhythm: Sinus Rhythm ST Segment: Non-Specific EKG Interpretation: L axis deviation, no acute findings Re-Evaluation - Re-Evaluation First Eval Re-Evaluation Time: 19:42 Comment: The patient still feels anxious but his chest is okay. Second Eval Re-Evaluation Time: 21:11 Comment: Patient is feeling a lot better. Discussed lab results and plan for discharge. Complex Multi-Symp Course/Dx Course Of Treatment: Patient with autism spectrum disorder presents with anxiety and sharp chest pain. He was hydrated, treated for his discomfort with Toradol and Ativan. A second dose of Ativan fully calm the patient where he was back to his baseline. He was able to get some sleep. His troponin 2 was negative. EKG negative. He'll follow closely with his primary care provider. - Diagnoses Differential Diagnoses/HQI/PQRI: Cardiac Ischemia, Metabolic Abnormality, Other - Anxiety reaction, pneumonia, metabolic abnormality Provider Diagnoses: Anxiety, Atypical chest pain, Autism spectrum disorder Discharge - Sign-Out/Discharge Documenting (check all that apply): Patient Departure - Discharge Plan Condition: Improved Disposition: HOME Patient Education Materials: Anxiety (ED) Referrals: Chinmay Pinto MD [Primary Care Provider] - Additional Instructions: Call your doctor first thing in the morning to schedule prompt follow-up. Return if worse, new symptoms or other concerns as discussed. - Billing Disposition and Condition Condition: IMPROVED Disposition: Home - Attestation Statements Document Initiated by Nancieibe: Yes Documenting Scribe: Bill Padilla Provider For Whom Rebeca is Documenting (Include Credential): Travon Olson MD Scribe Attestation: IBill, scribed for Travon Olson MD on 11/07/17 at 2145. Scribe Documentation Reviewed: Yes Provider Attestation: The documentation as recorded by the Bill dunham accurately reflects the service I personally performed and the decisions made by me, Travon Olson MD
[2017-11-07 18:41] LABS: Urine Appearance Clear; Urine Blood Negative (Negative); Urine Color Straw; Urine Ketones Negative (Negative); Urine Protein Negative (Negative); Urine Specific Gravity 1.012 (1.010-1.030); Urine Urobilinogen Negative (Negative)
[2017-11-07 19:04] LABS: ABS Basophils 0.1 10^3/ul (0-0.2); ABS Eosinophils 0.2 10^3/ul (0-0.6); ABS Lymphocytes 2.4 10^3/ul (1.0-4.8); ABS Monocytes 0.5 10^3/ul (0-0.8); ABS Neutrophils 2.6 10^3/ul (1.5-7.7); ABS Nucleated RBC 0 10^3/ul; Eosinophil % 3.8 % (0-6); Hematocrit 44 % (42-52); Hemoglobin 15.2 g/dl (14.0-18.0); Lymphocyte % 41.6 % (25-47); Mean Corpuscular HGB Conc 34 g/dl (31-36); Mean Corpuscular Hemoglobin 35 pg (27-31); Mean Corpuscular Volume 100 fL (80-94); Mean Platelet Volume 8.3 um3 (7.4-10.4); Nucleated Red Blood Cells % 0.1; Platelet Count 144 10^3/ul (150-450); Red Blood Count 4.41 10^6/ul (4.00-5.40); Red Cell Distribution Width 13 % (10.5-15); White Blood Count 5.8 10^3/ul (3.5-10.8)
[2017-11-07 19:10] LABS: INR 0.94 (0.77-1.02)
[2017-11-07 19:32] LABS: EGFR Non-African American 125.6 (>60)
[2017-11-07 21:53] VITALS: BP 126/80
--- NOTE | 2017-11-08 07:14 | RAD ---
INDICATION: Chest pain. COMPARISON: Comparison is made with a prior chest x-ray study from November 02, 2016. TECHNIQUE: A portable view of the chest was obtained. FINDINGS: Cardiac and mediastinal contours appear to be within normal limits. The lungs are clear. No pleural effusion is seen. IMPRESSION: NO EVIDENCE FOR ACUTE DISEASE. R0
== END 2017-11-07 21:51 | disposition home or self-care (01) ==
LOC: ED 16:52
DX: F41.9 Anxiety disorder, unspecified (principal); R07.89 Other chest pain; F84.0 Autistic disorder; R10.9 Unspecified abdominal pain; R10.2 Pelvic and perineal pain; F17.210 Nicotine dependence, cigarettes, uncomplicated
CPT/HCPCS: 36415; 71045; 80053; 81003; 83605; 83690; 83880; 84484; 85025; 85610; 93005; 96374; 96375; 99283; A9270-GY; J1885; J2060

== ENCOUNTER → 2017-11-15 16:48 | Emergency (ER) | payer MEDICARE, MEDICAID ==
[~2017-11-15 16:48] MED LIST: ALPRAZolam TAB* 0.5 MG PO ONE; Iodixanol* (CONTRAST) 320 MG/ML 100 ML SDV IV ONE; LORazepam INJ* 2 MG/ML 1 ML VIAL IV PUSH ONE; NS 0.9% 1000 ML* 1,000 ML IV ONE
--- NOTE | 2017-11-15 17:37 | ED ---
Complex/Multi-Sys Presentation - HPI Summary HPI Summary: This patient is a 52 year old M presenting to [facility] with a chief complaint of diffuse CP since 1400. He also endorses pelvic pain, HARDWICK, neck pain, abd pain, leg pain, and testicular pain, as well as dysuria, cough, depression, agitation , racing thoughts, photophobia, and hypersensitivity. PMHx autism, depression, and COPD. Pt lives in [facility]. Pt smokes. - History Of Current Complaint Chief Complaint: EDChestPainROMI Time Seen by Provider: 11/15/17 17:23 Hx Obtained From: Patient Onset/Duration: Sudden Onset, Lasting Hours, Still Present Timing: Constant Severity Currently: Moderate Severity Initially: Moderate Location: Pain At: - CP, abd, neck, head, pelvis, testicles, legs. Character: Typical Headache Associated Signs And Symptoms: Positive: Agitation, Headache, Cough, Chest Pain , Abdominal Pain, Dysuria. Negative: Fever - Allergies/Home Medications Allergies/Adverse Reactions: Allergies Allergy/AdvReac Type Severity Reaction Status Date / Time clozapine [From Clozaril] Allergy See Comment Verified 11/15/17 16:57 metformin Allergy Diarrhea Verified 11/15/17 16:57 NSAIDS (Non-Steroidal Allergy Bleeding Verified 11/15/17 16:57 Anti-Inflamma quetiapine Allergy Altered Verified 11/15/17 16:57 Mental Status PMH/Surg Hx/FS Hx/Imm Hx Endocrine/Hematology History: Reports: Hx Diabetes, Hx Anemia Denies: Hx Thyroid Disease Cardiovascular History: Reports: Hx Angina, Hx Hypercholesterolemia, Hx Hypertension - ON DAILY MEDS Denies: Hx Congestive Heart Failure, Hx Coronary Artery Disease, Hx Myocardial Infarction, Hx Peripheral Vascular Disease, Hx Valvular Heart Disease Respiratory History: Reports: Hx Asthma, Hx Chronic Obstructive Pulmonary Disease (COPD), Hx Pneumonia, Hx Sleep Apnea - NOT USING CPAP ANY MORE, Other Respiratory Problems/Disorders - PNEUMONIA, LAST WINTER GI History: Reports: Hx Gall Bladder Disease - removed in 1999, Hx Gastroesophageal Reflux Disease - ACID REFLUX, Hx Irritable Bowel, Hx Jaundice Denies: Hx Ulcer History: Reports: Other Problems/Disorders - OCCASIONAL HESITATION Denies: Hx Renal Disease Musculoskeletal History: Reports: Hx Arthritis - GENERAL, Hx Tendonitis - SHOULDERS, Other Musculoskeletal History - ankle fs Sensory History: Reports: Hx Cataracts - RT EYE, Hx Contacts or Glasses, Other Sensory Impairments - LENS IMPLANTS BILATERAL Denies: Hx Deafness Opthamlomology History: Reports: Hx Cataracts - RT EYE, Hx Contacts or Glasses, Other Sensory Impairments - LENS IMPLANTS BILATERAL EENT History: Denies: Hx Deafness Neurological History: Reports: Hx Developmental Delay - AUTISM, Other Neuro Impairments/Disorders - HEAD INJURY AT 4 YEARS OLD Psychiatric History: Reports: Hx Anxiety - MEDS, Hx Autism, Hx Depression, Hx Post Traumatic Stress Disorder - self reported, Hx Bipolar Disorder, Other Psychiatric Issues/Disorders - AUTISTIC Denies: Hx Eating Disorder, Hx of Violent Episodes Against Others - Pt does have concerns that he will become aggressive with his neighbors. - Surgical History Surgery Procedure, Year, and Place: 2003 LEFT ankle FRACTURE [place]. wisdom teeth. 1999 cholecystectomy; . 2009 LEFT EYE cataract [facility] Hx Anesthesia Reactions: No - Immunization History Date of Tetanus Vaccine: unknown Date of Influenza Vaccine: unknown Infectious Disease History: No Infectious Disease History: Denies: Hx Clostridium Difficile, Hx Hepatitis, Hx Human Immunodeficiency Virus (HIV), Hx of Known/Suspected MRSA, Hx Shingles, Hx Tuberculosis, Traveled Outside the [place] in Last 30 Days - Family History Known Family History: Positive: Diabetes - Social History Occupation: Disabled Lives: Detention Alcohol Use: None Alcohol Amount: RECOVERING ALCOHOLIC, 2005 Substance Use Type: Reports: None Hx Tobacco Use: Yes Smoking Status (MU): Heavy Every Day Tobacco Smoker Type: Cigarettes Amount Used/How Often: 1/2 PPD 27 YRS Length of Time of Smoking/Using Tobacco: 30 years Have You Smoked in the Last Year: Yes Review of Systems Negative: Fever Positive: Photophobia Positive: Chest Pain Positive: Cough Positive: Abdominal Pain Positive: dysuria, other - testicle pain Positive: Arthralgia, Myalgia Neurological: Other - hypersensitive to stimuli Positive: Headache Positive: Depressed All Other Systems Reviewed And Are Negative: Yes Physical Exam - Summary Physical Exam Summary: Appearance: Well appearing, no pain distress Skin: warm, dry, reflects adequate perfusion Head/face: normal Eyes: EOMI, [place] ENT: normal Neck: supple, non-tender Respiratory: CTA, breath sounds present Cardiovascular: RRR, pulses symmetrical Abdomen: tenderness in the LLQ, soft Bowel: present Musculoskeletal: normal, strength/ROM intact Neuro: normal, sensory motor intact, A&Ox3 : tenderness in the testicles Triage Information Reviewed: Yes Vital Signs On Initial Exam: Initial Vitals Temp Pulse Resp BP Pulse Ox 98.3 F 84 20 134/62 99 11/15/17 16:52 11/15/17 16:52 11/15/17 16:52 11/15/17 16:52 11/15/17 16:52 Vital Signs Reviewed: Yes Diagnostics - Vital Signs Vital Signs Temp Pulse Resp BP Pulse Ox 11/15/17 17:00 91 30 96 11/15/17 16:56 79 17 131/105 95 11/15/17 16:52 98.3 F 84 20 134/62 99 - Laboratory Result Diagrams: 11/15/17 17:46 11/15/17 17:46 Lab Statement: Any lab studies that have been ordered have been reviewed, and results considered in the medical decision making process. - Radiology CXR Xray Interpretation: No Acute Changes Radiology Interpretation Completed By: Radiologist - No evidence for acute findings. Dr. Hall has reviewed this report. - CT A/P CT Interpretation: No Acute Changes CT Interpretation Completed By: Radiologist - 1. No acute findings or evidence of diverticulitis. 2. Several distended loops of small bowel are noted in the left upper quadrant, nonspecific. No clear transition point identified. 3. Hepatomegaly with hepatic steatosis, similar to prior. 4. Status post cholecystectomy. Dr. Hall has reviewed this report. - Ultrasound No standard instances Ultrasound Interpretation: No Acute Changes Ultrasound Interpretation Completed By: Radiologist - 1. No acute findings. No torsion. 2. Small left hydrocele. Dr. Hall has reviewed this report. - EKG 1708 Cardiac Rate: NL - 81 EKG Rhythm: Sinus Rhythm ST Segment: Normal Ectopy: None EKG Interpretation: No acute changes. Complex Multi-Symp Course/Dx Course Of Treatment: A 52-year-old M presents to the ED with a CC of diffuse CP since 1400. (+) HARDWICK, photophobia, hypersensitivity to stimuli, neck pain, cough, abd pain, pelvic pain, testicular pain, leg pain, depression, agitation, racing thoughts. (-) fever. Background. A CXR was (-). An EKG reveals NSR at 81 BPM with no acute changes. A testicular US was (-) except for a small left hydrocoele. A CT A/P reveals 1. No acute findings or evidence of diverticulitis. 2. Several distended loops of small bowel are noted in the left upper quadrant, nonspecific. No clear transition point identified. 3. Hepatomegaly with hepatic steatosis, similar to prior. 4. Status post cholecystectomy. In the ED course, pt was given xanax, ativan contrast, and nl saline. pt has no acute abdomen and typical chest pains unlikely acs at present.so will dc home and to follow up with pmd in three days. - Diagnoses Provider Diagnoses: Atypical chest pain, Nonspecific abdominal pain, Anxiety Discharge - Sign-Out/Discharge Documenting (check all that apply): Patient Departure - discharge - Discharge Plan Condition: Stable Disposition: HOME Patient Education Materials: Chest Pain (ED), Abdominal Pain (ED), Anxiety (ED) Referrals: Chinmay Pinto MD [Primary Care Provider] - 3 Days Additional Instructions: Please return to the emergency department for any new or worsening symptoms. - Billing Disposition and Condition Condition: STABLE Disposition: Home - Attestation Statements Document Initiated by Rebeca: Yes Documenting Scribe: Galen Greer Provider For Whom Rebeca is Documenting (Include Credential): Dr. Davion Hall MD Scribe Attestation: Galen Burgos, scribed for Dr. Davion Hall MD on 11/15/17 at 2049. Scribe Documentation Reviewed: Yes Provider Attestation: The documentation as recorded by the Galen dunham accurately reflects the service I personally performed and the decisions made by Dr. Davion abdullahi MD
[2017-11-15 17:56] LABS: ABS Basophils 0.1 10^3/ul (0-0.2); ABS Eosinophils 0.3 10^3/ul (0-0.6); ABS Lymphocytes 2.8 10^3/ul (1.0-4.8); ABS Monocytes 0.6 10^3/ul (0-0.8); ABS Neutrophils 3.3 10^3/ul (1.5-7.7); ABS Nucleated RBC 0 10^3/ul; Hematocrit 43 % (42-52); Hemoglobin 15.2 g/dl (14.0-18.0); Lymphocyte % 39.6 % (25-47); Mean Corpuscular HGB Conc 35 g/dl (31-36); Mean Corpuscular Hemoglobin 35 pg (27-31); Mean Corpuscular Volume 99 fL (80-94); Mean Platelet Volume 8.4 um3 (7.4-10.4); Nucleated Red Blood Cells % 0.2; Platelet Count 154 10^3/ul (150-450); Red Blood Count 4.34 10^6/ul (4.00-5.40); Red Cell Distribution Width 13 % (10.5-15)
[2017-11-15 18:04] LABS: INR 0.9 (0.77-1.02)
[2017-11-15 18:16] LABS: EGFR Non-African American 115.6 (>60)
--- NOTE | 2017-11-15 18:23 | RAD ---
INDICATION: Chest pain. COMPARISON: Comparison is made with a prior study from November 07, 2017. TECHNIQUE: A portable view of the chest was obtained. FINDINGS: Cardiac and mediastinal contours appear to be within normal limits. The lungs are underinflated and grossly clear. No pleural effusion is seen. IMPRESSION: NO EVIDENCE FOR ACUTE FINDING.
[2017-11-15 18:39] LABS: Urine Appearance Clear; Urine Blood Negative (Negative); Urine Color Straw; Urine Ketones Negative (Negative); Urine Protein Negative (Negative); Urine Specific Gravity 1.009 (1.010-1.030); Urine Urobilinogen Negative (Negative)
--- NOTE | 2017-11-15 19:48 | RAD ---
EXAM: US Scrotum CLINICAL HISTORY: 52 years old, male; Pain; Scrotum pain; Additional info: Torsion TECHNIQUE: Real-time ultrasound of the scrotum with color Doppler and image documentation. COMPARISON: TESTI US TESTICULAR 02/28/2016 11:24 PM FINDINGS: Right testicle: The right testicle measures 3.6 x 1.8 x 2.6 cm. No mass. Normal arterial waveforms. No torsion. Left testicle: The left testicle measures 3.4 x 1.7 x 2.5 cm. No mass. Normal arterial waveforms. No torsion. Epididymides: The right epididymal head measures 1.0 x 0.9 cm AP and transverse.. The left epididymal head measures 1.3 x 0.9 cm AP and transverse per sonographic images. Scrotum: There is a small left hydrocele. IMPRESSION: 1. No acute findings. No torsion. 2. Small left hydrocele.
--- NOTE | 2017-11-15 20:30 | RAD ---
EXAM: CT Abdomen and Pelvis With Intravenous Contrast CLINICAL HISTORY: 52 years old, male; Pain; Abdominal pain; Patient HX: Lower abdomen pain; Additional info: Diverticulitis TECHNIQUE: Axial computed tomography images of the abdomen and pelvis with intravenous contrast. All CT scans at this facility use at least one of these dose optimization techniques: automated exposure control; mA and/or kV adjustment per patient size (includes targeted exams where dose is matched to clinical indication); or iterative reconstruction. Coronal and sagittal reformatted images were created and reviewed. CONTRAST: 126 mL of VISI 320 administered intravenously. COMPARISON: A/P WO CT ABD/PEL W/O 09/06/2017 10:20 AM FINDINGS: Lung bases: Unremarkable. No mass. No consolidation. ABDOMEN: Liver: The liver is enlarged measuring 25 cm craniocaudad, similar to prior. There is a diffuse decrease in hepatic parenchymal density, consistent with fatty infiltration. Gallbladder and bile ducts: Cholecystectomy clips are present in the gallbladder fossa. Pancreas: Unremarkable. No mass. Spleen: Unremarkable. Adrenals: Unremarkable. No mass. Kidneys and ureters: Unremarkable. No hydronephrosis or solid mass. Stomach and bowel: A few air filled mildly dilated loops of small bowel are noted in the left mid abdomen measuring up to 3.1 cm short axis. No clear transition point or mass identified. PELVIS: Appendix: No findings to suggest acute appendicitis. Bladder: Unremarkable. Reproductive: Unremarkable as visualized. ABDOMEN and PELVIS: Intraperitoneal space: Unremarkable. No free air or free fluid. Bones/joints: No acute fracture or aggressive osseous lesions Soft tissues: Unremarkable. Vasculature: Unremarkable. No abdominal aortic aneurysm. Lymph nodes: Unremarkable. No enlarged lymph nodes. IMPRESSION: 1. No acute findings or evidence of diverticulitis. 2. Several distended loops of small bowel are noted in the left upper quadrant, nonspecific. No clear transition point identified. 3. Hepatomegaly with hepatic steatosis, similar to prior. 4. Status post cholecystectomy.
[2017-11-15 20:49] VITALS: BP 144/74
== END | disposition home or self-care (01) ==
LOC: ED 16:48
DX: N43.3 Hydrocele, unspecified (principal); R10.32 Left lower quadrant pain; R07.89 Other chest pain; F41.9 Anxiety disorder, unspecified; I10 Essential (primary) hypertension; Z90.49 Acquired absence of other specified parts of digestive tract; Z88.6 Allergy status to analgesic agent; Z88.8 Allergy status to other drugs, medicaments and biological substances; F17.210 Nicotine dependence, cigarettes, uncomplicated
CPT/HCPCS: 36415; 71045; 74177; 76870; 80053; 81003; 83605; 83690; 84484; 85025; 85610; 85730; 93005; 96374; 99283; A9270-GY; J2060; Q9967

== ENCOUNTER 2017-11-22 12:58 | Inpatient (IN) | payer MEDICARE, MEDICAID ==
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
[2017-11-22 14:07] LABS: ABS Basophils 0 10^3/ul (0-0.2); ABS Eosinophils 0.2 10^3/ul (0-0.6); ABS Lymphocytes 2.3 10^3/ul (1.0-4.8); ABS Monocytes 0.6 10^3/ul (0-0.8); ABS Neutrophils 3.4 10^3/ul (1.5-7.7); ABS Nucleated RBC 0 10^3/ul; Eosinophil % 3.1 % (0-6); Hematocrit 45 % (42-52); Lymphocyte % 35.2 % (25-47); Mean Corpuscular HGB Conc 35 g/dl (31-36); Mean Corpuscular Hemoglobin 35 pg (27-31); Mean Corpuscular Volume 100 fL (80-94); Mean Platelet Volume 8.7 um3 (7.4-10.4); Nucleated Red Blood Cells % 0.2; Platelet Count 174 10^3/ul (150-450); Red Blood Count 4.53 10^6/ul (4.00-5.40); Red Cell Distribution Width 13 % (10.5-15); White Blood Count 6.5 10^3/ul (3.5-10.8)
[2017-11-22] MEDS ORDERED: LORazepam TAB(*) 1 MG PO ONE (14:10)
[2017-11-22 14:31] LABS: EGFR Non-African American 102.3 (>60)
[2017-11-22] MEDS ORDERED: Nicotine GUM* 2 MG PO PRN (18:57)
[2017-11-22] MEDS ORDERED: Mouth Piece, Nicotine* 1 EACH CARTRIDGE INH SCH (18:57)
[2017-11-22] MEDS ORDERED: diPHENhydraMINE PO* 25 MG PO PRN (19:03)
[2017-11-22] MEDS ORDERED: Hydrocortisone 1% CREAM* 30 GM TUBE TOPICAL PRN (19:03)
[2017-11-22] MEDS ORDERED: Psyllium PAK PO PRN (19:04)
[2017-11-22] MEDS ORDERED: Docusate CAP* 100 MG PO PRN (19:06)
[2017-11-22] MEDS ORDERED: Polyethyl Glycol/Propylene Gly OPHTH.SOLN BOTH EYES PRN (19:09)
[2017-11-22] MEDS: hydrOXYzine HCL TAB* 25 MG PO PRN (19:19)
[2017-11-22] MEDS: Ibuprofen TAB* 200 MG PO PRN (19:50)
[2017-11-22 19:56] LABS: Urine Appearance Clear; Urine Blood Negative (Negative); Urine Color Straw; Urine Ketones Negative (Negative); Urine Protein Negative (Negative); Urine Urobilinogen Negative (Negative)
[2017-11-22] MEDS ORDERED: Clobetasol 0.05% OINT* 30 GM TUBE TOPICAL PRN (20:09)
[2017-11-22] MEDS: Nicotine Inhaler* 10 MG AMP INH PRN (20:13)
[2017-11-22] MEDS ORDERED: Nicotine PATCH 21 MG/24 HR* PATCH TRANSDERM PRN (20:14)
[2017-11-22] MEDS ORDERED: Dextrose 50% Syringe 50 ML* 25 GM/50 ML SYRINGE IV PUSH PRN (20:15)
[2017-11-22] MEDS: busPIRone TAB* 10 MG PO SCH (20:40)
[2017-11-22] MEDS: Prazosin CAP* 1 MG PO SCH (20:40)
[2017-11-22] MEDS: Gabapentin CAP(*) 300 MG PO SCH ×2 (20:41)
[2017-11-22] MEDS: Albuterol/Ipratropium RESP(NF) MDI (Combivent Respimat) INH SCH (20:43)
[2017-11-22] MEDS: Mupirocin 2% OINT* TUBE TOPICAL SCH (20:44)
[2017-11-22] MEDS: OMEGA-3 FATTY ACIDS (NF) 1,000 MG CAP PO SCH (20:44)
[2017-11-22] MEDS: Clotrimazole 1% CREAM* 30 GM TOPICAL SCH (20:44)
[2017-11-22] MEDS: Insulin LISPRO* 1 UNITS UNIT SUBCUT SCH (20:52)
[2017-11-22] MEDS ORDERED: DOXEPIN 25 MG PO SCH (21:00)
[2017-11-23] MEDS: hydrOXYzine HCL TAB* 25 MG PO PRN ×2 (07:29→18:23)
[2017-11-23] MEDS: Nicotine Inhaler* 10 MG AMP INH PRN ×3 (07:31→16:59)
[2017-11-23] MEDS: Insulin LISPRO* 1 UNITS UNIT SUBCUT SCH ×4 (08:07→21:01)
[2017-11-23] MEDS: Aspirin EC TAB* 81 MG TAB.EC PO SCH (08:54)
[2017-11-23] MEDS: Atorvastatin* 10 MG TAB PO SCH (08:54)
[2017-11-23] MEDS: busPIRone TAB* 10 MG PO SCH ×2 (08:55→13:09)
[2017-11-23] MEDS: Famotidine TAB* 20 MG PO SCH (08:56)
[2017-11-23] MEDS: Clotrimazole 1% CREAM* 30 GM TOPICAL SCH ×2 (08:56→21:11)
[2017-11-23] MEDS: CMCS Fenofibrate(NF) 145 MG TAB PO SCH (08:57)
[2017-11-23] MEDS: Fluticasone NASAL SPRAY 50MCG* 16 gm SPRAY BTL BOTH NARES SCH (08:58)
[2017-11-23] MEDS: Lactobacillus Acidophilus* 1 TAB PO SCH (08:58)
[2017-11-23] MEDS: Lisinopril TAB* 5 MG PO SCH (08:58)
[2017-11-23] MEDS ORDERED: Polyethylene Glycol 3350* 17 GM PACKET PO SCH (09:00)
[2017-11-23] MEDS ORDERED: FLUoxetine CAP* 20 MG PO SCH (09:00)
[2017-11-23] MEDS: Mupirocin 2% OINT* TUBE TOPICAL SCH ×3 (09:00→21:11)
[2017-11-23] MEDS: Gabapentin CAP(*) 300 MG PO SCH ×4 (09:02→21:07)
[2017-11-23] MEDS: Albuterol/Ipratropium RESP(NF) MDI (Combivent Respimat) INH SCH ×4 (09:07→21:03)
[2017-11-23] MEDS: OMEGA-3 FATTY ACIDS (NF) 1,000 MG CAP PO SCH ×2 (09:07→21:08)
[2017-11-23] MEDS: EMPAGLIFLOZIN 25 MG PO SCH (09:07)
[2017-11-23] MEDS: Acetaminophen TAB* 325 MG PO PRN ×2 (10:34→16:58)
[2017-11-23] MEDS: Cyclobenzaprine TAB* 10 MG PO PRN ×2 (11:37→16:58)
[2017-11-23] MEDS: Ibuprofen TAB* 200 MG PO PRN (13:10)
[2017-11-23] MEDS ORDERED: Polyethylene Glycol 3350* 17 GM PACKET PO PRN (17:15)
[2017-11-23] MEDS ORDERED: diPHENhydraMINE PO* 25 MG PO PRN (17:24)
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
[2017-11-23] MEDS: Mometasone 220 MCG MDI INH SCH (17:42)
[2017-11-23] MEDS: Diclofenac Sodium EC TAB* 25 MG PO PRN (19:27)
[2017-11-23] MEDS ORDERED: DOXEPIN 25 MG PO SCH (21:00)
[2017-11-23] MEDS: Docusate CAP* 100 MG PO SCH (21:04)
[2017-11-23] MEDS: DOXEPIN 25 MG PO SCH (21:04)
[2017-11-23] MEDS: Prazosin CAP* 1 MG PO SCH (21:09)
[2017-11-23] MEDS: Nicotine Patch Removal NOTE PATCH OFF SCH (21:19)
[2017-11-24] MEDS: Nicotine Inhaler* 10 MG AMP INH PRN ×4 (04:22→14:36)
[2017-11-24] MEDS: Venlafaxine EXT RELEASE CAP* 37.5 MG PO SCH (07:57)
[2017-11-24] MEDS: CMCS Fenofibrate(NF) 145 MG TAB PO SCH (07:57)
[2017-11-24] MEDS: Lisinopril TAB* 5 MG PO SCH (07:58)
[2017-11-24] MEDS: Gabapentin CAP(*) 300 MG PO SCH ×4 (07:58→22:03)
[2017-11-24] MEDS: Docusate CAP* 100 MG PO SCH ×2 (07:58→22:02)
[2017-11-24] MEDS: Atorvastatin* 10 MG TAB PO SCH (07:59)
[2017-11-24] MEDS: Aspirin EC TAB* 81 MG TAB.EC PO SCH (07:59)
[2017-11-24] MEDS: Famotidine TAB* 20 MG PO SCH (08:00)
[2017-11-24] MEDS: Fluticasone NASAL SPRAY 50MCG* 16 gm SPRAY BTL BOTH NARES SCH (08:01)
[2017-11-24] MEDS: Lactobacillus Acidophilus* 1 TAB PO SCH (08:01)
[2017-11-24] MEDS: EMPAGLIFLOZIN 25 MG PO SCH (08:03)
[2017-11-24] MEDS: Insulin LISPRO* 1 UNITS UNIT SUBCUT SCH ×4 (08:18→22:14)
[2017-11-24] MEDS: Albuterol/Ipratropium RESP(NF) MDI (Combivent Respimat) INH SCH ×3 (08:38→19:43)
[2017-11-24] MEDS: OMEGA-3 FATTY ACIDS (NF) 1,000 MG CAP PO SCH (08:38)
[2017-11-24] MEDS: Diclofenac Sodium EC TAB* 25 MG PO PRN (10:00)
[2017-11-24] MEDS: hydrOXYzine HCL TAB* 25 MG PO PRN (10:00)
[2017-11-24] MEDS: Mupirocin 2% OINT* TUBE TOPICAL SCH ×3 (10:57→22:04)
[2017-11-24] MEDS: Clotrimazole 1% CREAM* 30 GM TOPICAL SCH ×2 (10:57→22:05)
[2017-11-24] MEDS: Cyclobenzaprine TAB* 10 MG PO PRN (13:28)
[2017-11-24] MEDS: Acetaminophen TAB* 325 MG PO PRN (18:00)
[2017-11-24] MEDS: diPHENhydraMINE PO* 25 MG PO PRN (18:01)
[2017-11-24] MEDS: Mometasone 220 MCG MDI INH SCH (20:39)
[2017-11-24] MEDS: Prazosin CAP* 1 MG PO SCH (22:01)
[2017-11-24] MEDS: CMC:OMEGA-3 FATTY ACIDS (NF) 1,000 MG CAP PO SCH (22:02)
[2017-11-24] MEDS: DOXEPIN 25 MG PO SCH (22:04)
[2017-11-24] MEDS: Albuterol/Ipratropium NEB.SOL* Albuterol 2.5 MG/Ipratropium 0.5 MG 3 ML INH SCH (22:18)
[2017-11-24] MEDS: Nicotine Patch Removal NOTE PATCH OFF SCH (22:18)
[2017-11-25] MEDS: Albuterol/Ipratropium NEB.SOL* Albuterol 2.5 MG/Ipratropium 0.5 MG 3 ML INH SCH ×4 (07:15→20:31)
[2017-11-25] MEDS: Insulin LISPRO* 1 UNITS UNIT SUBCUT SCH ×4 (07:59→20:59)
[2017-11-25] MEDS: Nicotine Inhaler* 10 MG AMP INH PRN ×4 (08:32→19:55)
[2017-11-25] MEDS: Famotidine TAB* 20 MG PO SCH (08:33)
[2017-11-25] MEDS: Lisinopril TAB* 5 MG PO SCH (08:33)
[2017-11-25] MEDS: Gabapentin CAP(*) 300 MG PO SCH ×4 (08:33→21:22)
[2017-11-25] MEDS: Venlafaxine EXT RELEASE CAP* 37.5 MG PO SCH (08:33)
[2017-11-25] MEDS: Docusate CAP* 100 MG PO SCH ×2 (08:33→20:57)
[2017-11-25] MEDS: Aspirin EC TAB* 81 MG TAB.EC PO SCH (08:34)
[2017-11-25] MEDS: Atorvastatin* 10 MG TAB PO SCH (08:34)
[2017-11-25] MEDS: CMCS Fenofibrate(NF) 145 MG TAB PO SCH (08:37)
[2017-11-25] MEDS: Lactobacillus Acidophilus* 1 TAB PO SCH (08:37)
[2017-11-25] MEDS: CMC:OMEGA-3 FATTY ACIDS (NF) 1,000 MG CAP PO SCH ×2 (08:38→20:58)
[2017-11-25] MEDS: EMPAGLIFLOZIN 25 MG PO SCH (08:38)
[2017-11-25] MEDS: Fluticasone NASAL SPRAY 50MCG* 16 gm SPRAY BTL BOTH NARES SCH (08:39)
[2017-11-25] MEDS: Clotrimazole 1% CREAM* 30 GM TOPICAL SCH ×2 (10:41→21:23)
[2017-11-25] MEDS: hydrOXYzine HCL TAB* 25 MG PO PRN ×2 (10:41→21:11)
[2017-11-25] MEDS: Mupirocin 2% OINT* TUBE TOPICAL SCH ×3 (10:42→21:22)
[2017-11-25] MEDS: Ibuprofen TAB* 200 MG PO PRN (12:42)
--- NOTE | 2017-11-25 16:02 | PN ---
Subjective - Subjective Date of Service: 11/25/17 Service Type: 20783 Hosp care 15 min low complexity Subjective: Gurvinder has been complaining of chest pain, anxiety and abdominal pain. Appears to be a poor historian and says yes to pretty much everything. Otherwise pleasant and cooperative without much of a problem on the unit. Taking his meds and would like to know side effects of Effexor. Med education provided. Objective - Appearance Appearance: Obese Dysmorphic Features: No Hygiene: Dirty Grooming: Disheveled - Behavior Psychomotor Activities: Normal Exhibits Abnormal Movement: No - Attitude and Relatedness Attitude and Relatedness: Child Like Eye Contact: Good - Speech Quality: Unpressured Latencies: Normal Quantity: Terse - Mood Patient's Decription of Mood: "Okay" - Affect Observed Affect: Constricted Affect Consistent with: Dysphoria - Thought Process Patient's Thought Process: Coherent, Circumstantial, Impoverished Thought Content: No Passive Wish, No Suicidal Planning, No Homicidal Ideation, No Paranoid Ideation - Sensorium Experiencing Hallucinations: No, Sensorium is Clear Type of Hallucinations: Visual: No, Auditory: No, Command: No - Level of Consciousness Level of Consciousness: Alert Orientation: Yes Orientated to Place, Yes Orientated to Person, No Orientated to Time - Impulse Control Impulse Control: Intact - Insight and Judgement Insight and Judgement: Poor - Group Participation Particating in Group Activities: No - Medication Management Medication Management Adherence: Yes Assessment - Assessment Merits Inpatient Hospitalization: For Immediate Safety, For Stabilization, For Ongoing Evaluation, For Discharge Planning Clinical Impression: 52 y/o male with Autistic d/o and depression/ anxiety is a poor historian but not a management problem so far. Plan - Plan Treatment Plan: Name: GURVINDER BRYANT Birthdate: 1965 [id number] Continued Medication Management: Continue Outpt Medication Medications: Current Medications Acetaminophen (Tylenol Tab*) 650 mg PO Q6H PRN PRN Reason: PAIN Last Admin: 11/24/17 18:00 Dose: 650 mg Albuterol/Ipratropium (Duoneb (Albuterol 2.5 Mg/Ipratropium 0.5 Mg)) 1 neb INH RT.QID [facility] Last Admin: 11/25/17 11:15 Dose: 1 neb Aspirin (Aspirin Ec Tab*) 81 mg PO DAILY [facility] Last Admin: 11/25/17 08:34 Dose: 81 mg Atorvastatin Calcium (Lipitor*) 5 mg PO DAILY [facility] Last Admin: 11/25/17 08:34 Dose: 5 mg Clobetasol Propionate (Clobetasol 0.05% Oint*) 1 applic TOPICAL BID PRN PRN Reason: ITCHING Clotrimazole (Clotrimazole 1%*) 1 applic TOPICAL BID [facility] Last Admin: 11/25/17 10:41 Dose: Not Given Cyclobenzaprine HCl (Flexeril Tab*) 10 mg PO TID PRN PRN Reason: MUSCLE SPASMS Last Admin: 11/24/17 13:28 Dose: 10 mg Device (Nicotine Mouth Piece*) 1 each INH .CARTRIDGE [facility] Dextrose (D50w Syringe 50 Ml*) 12.5 gm IV PUSH .FOR FS < 60 - SS PRN PRN Reason: FS < 60 Diclofenac Sodium (Voltaren Ec Tab*) 50 mg PO TID PRN PRN Reason: PAIN Last Admin: 11/24/17 10:00 Dose: 50 mg Diphenhydramine HCl (Benadryl Po*) 50 mg PO Q6H PRN PRN Reason: Anxiety/insomnia Last Admin: 11/24/17 18:01 Dose: 50 mg Docusate Sodium (Colace Cap*) 100 mg PO BID [facility] Last Admin: 11/25/17 08:33 Dose: 100 mg Doxepin HCl (Doxepin (Nf)) 150 mg PO BEDTIME [facility] Last Admin: 11/24/17 22:04 Dose: 150 mg Famotidine (Pepcid Tab*) 20 mg PO DAILY [facility] Last Admin: 11/25/17 08:33 Dose: 20 mg Fenofibrate (Tricor(Nf)) 145 mg PO DAILY [facility] Last Admin: 11/25/17 08:37 Dose: 145 mg Fish Oil (Fish Oil (Nf)) 2,000 mg PO BID [facility] Last Admin: 11/25/17 08:38 Dose: 2,000 mg Fluticasone Propionate (Flonase Nasal [place] 50mcg*) 1 spray BOTH NARES DAILY [facility] Last Admin: 11/25/17 08:39 Dose: 1 spray Gabapentin (Neurontin Cap(*)) 600 mg PO BEDTIME [facility] Last Admin: 11/24/17 22:02 Dose: 600 mg Gabapentin (Neurontin Cap(*)) 300 mg PO TID [facility] Last Admin: 11/25/17 14:40 Dose: 300 mg Hydrocortisone (Hytone Cream 1%*) 1 applic TOPICAL DAILY PRN PRN Reason: ITCHING Hydroxyzine HCl (Atarax Tab*) 25 mg PO BID PRN PRN Reason: ANXIETY Last Admin: 11/25/17 10:41 Dose: 25 mg Ibuprofen (Advil Tab*) 200 mg PO Q6H PRN PRN Reason: PAIN/INFLAMMATION Last Admin: 11/25/17 12:42 Dose: 200 mg Insulin Human Lispro (Humalog*) 0 units SUBCUT ACHS [facility]; Protocol Last Admin: 11/25/17 11:49 Dose: 12 units Lactobacillus Rhamnosus (Lactobacillus Acidophilus*) 1 tab PO DAILY [facility] Last Admin: 11/25/17 08:37 Dose: 1 tab Lisinopril (Prinivil Tab*) 5 mg PO DAILY [facility] Last Admin: 11/25/17 08:33 Dose: 5 mg Mometasone Furoate (Asmanex 220 Mcg Mdi *) 2 puff INH 1800 [facility] Last Admin: 11/24/17 20:39 Dose: 2 puff Mupirocin (Bactroban 2 % Oint*) 1 applic TOPICAL TID [facility] Last Admin: 11/25/17 15:39 Dose: Not Given Nicotine (Nicotine Inhaler*) 10 mg INH Q2H PRN PRN Reason: CRAVING Last Admin: 11/25/17 12:42 Dose: 10 mg Nicotine (Nicotine Patch 21 Mg/24 Hr*) 1 patch TRANSDERM 0800 PRN PRN Reason: CRAVINGS Nicotine Polacrilex (Nicotine Gum*) 2 mg PO Q2H PRN PRN Reason: CRAVING [facility]:Empagliflozin ( (Jardiance) 25 Mg Tab) 1 dose PO DAILY [facility] Last Admin: 11/25/17 08:38 Dose: 1 dose Pharmacy Profile Note (Nicotine Patch Removal Note*) 1 note PATCH OFF 2100 [facility] Last Admin: 11/24/17 22:18 Dose: Not Given Polyethyl Glycol/Propylene Glycol (Lubricant Eye Drops) 1 drop BOTH EYES DAILY PRN PRN Reason: DRY EYES Polyethylene Glycol/Electrolytes (Miralax*) 17 gm PO DAILY PRN PRN Reason: CONSTIPATION Prazosin HCl (Minipress Cap*) 4 mg PO BEDTIME [facility] Last Admin: 11/24/17 22:01 Dose: 4 mg Psyllium Hydrophilic Mucilloid (Metamucil Pete*) 1 pkt PO BID PRN PRN Reason: CONSTIPATION Venlafaxine HCl (Effexor Xr Cap*) 37.5 mg PO DAILY [facility] Last Admin: 11/25/17 08:33 Dose: 37.5 mg - Discharge Plan Discharge Plan: Outpatient Follow Up Outpatient Program: [facility]
[2017-11-25] MEDS: diPHENhydraMINE PO* 25 MG PO PRN (16:16)
[2017-11-25] MEDS: Mometasone 220 MCG MDI INH SCH (19:56)
[2017-11-25] MEDS: Prazosin CAP* 1 MG PO SCH (20:56)
[2017-11-25] MEDS: DOXEPIN 25 MG PO SCH (20:57)
[2017-11-25] MEDS: Nicotine Patch Removal NOTE PATCH OFF SCH (21:22)
[2017-11-26] MEDS: Nicotine Inhaler* 10 MG AMP INH PRN ×4 (01:25→15:56)
[2017-11-26] MEDS: Fluticasone NASAL SPRAY 50MCG* 16 gm SPRAY BTL BOTH NARES SCH (07:58)
[2017-11-26] MEDS: Albuterol/Ipratropium NEB.SOL* Albuterol 2.5 MG/Ipratropium 0.5 MG 3 ML INH SCH ×3 (07:58→20:38)
[2017-11-26] MEDS: Insulin LISPRO* 1 UNITS UNIT SUBCUT SCH ×5 (07:59→21:14)
[2017-11-26] MEDS: Clotrimazole 1% CREAM* 30 GM TOPICAL SCH ×3 (08:00→21:23)
[2017-11-26] MEDS: Lisinopril TAB* 5 MG PO SCH (08:58)
[2017-11-26] MEDS: Famotidine TAB* 20 MG PO SCH (08:58)
[2017-11-26] MEDS: Atorvastatin* 10 MG TAB PO SCH (08:59)
[2017-11-26] MEDS: CMC:OMEGA-3 FATTY ACIDS (NF) 1,000 MG CAP PO SCH ×2 (08:59→21:24)
[2017-11-26] MEDS: Aspirin EC TAB* 81 MG TAB.EC PO SCH (08:59)
[2017-11-26] MEDS: Docusate CAP* 100 MG PO SCH ×2 (08:59→21:17)
[2017-11-26] MEDS: Gabapentin CAP(*) 300 MG PO SCH ×4 (09:00→21:18)
[2017-11-26] MEDS: Mupirocin 2% OINT* TUBE TOPICAL SCH ×4 (09:46→21:20)
[2017-11-26] MEDS: Venlafaxine EXT RELEASE CAP* 37.5 MG PO SCH (09:46)
[2017-11-26] MEDS: EMPAGLIFLOZIN 25 MG PO SCH (09:46)
[2017-11-26] MEDS: CMCS Fenofibrate(NF) 145 MG TAB PO SCH (09:46)
[2017-11-26] MEDS: Lactobacillus Acidophilus* 1 TAB PO SCH (09:46)
[2017-11-26] MEDS: Diclofenac Sodium EC TAB* 25 MG PO PRN (11:10)
[2017-11-26] MEDS: Cyclobenzaprine TAB* 10 MG PO PRN (11:11)
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
[2017-11-26] MEDS ORDERED: Venlafaxine EXT RELEASE CAP* 37.5 MG PO ONE (11:48)
[2017-11-26] MEDS: Mometasone 220 MCG MDI INH SCH (18:17)
--- NOTE | 2017-11-26 18:55 | CONS ---
CONSULTATION REPORT: DATE OF CONSULT: 11/26/17 PROVIDER: Brielle Dill NP. ATTENDING PHYSICIAN: Dr. Blas. PRIMARY CARE PROVIDER: Dr. Chinmay Pinto. REFERRING PHYSICIAN: Dr. Maldonado. REASON FOR CONSULT: Diabetes management and dyslipidemia. HISTORY OF PRESENT ILLNESS: Mr. Collins is a 52-year-old male with a past medical history of insulin-dependent type 2 diabetes, dyslipidemia, depression, anxiety, autism, borderline personality disorder, morbid obesity, COPD, who was admitted to the psychiatric unit on 11/23/17 with report of depression, anxiety attacks with suicidal ideation. Hospital Medicine was asked to consult for diabetes management and abnormal lipid profile. The patient was seen and evaluated on the psych unit, where he was found to be sitting up in the dining area, alert and oriented x3. The patient was very pleasant on exam. He reports that he was recently taken off his Tricor by his primary care provider due to trying to reduce his overall medication load. The patient reports he was having "funny symptoms", but he states it was not clear what was causing these symptoms and he is not able to tell me if these have resolved from stopping the Tricor. He also reports that his Geodon was discontinued recently. The patient reports that today, he is "feeling a little better". He reports he has a history of abnormal lipid profile. In review of his chart, it appears his triglycerides in the past have been greater than 1600 and these appeared to have improved over the past several years. Per primary care and the patient, he has a poor diet in his current environment and the patient reports that he eats lots of "cookies and junk food." Currently, it appears that the patient is not on his home insulin regimen since admission and appears his blood sugars are ranging from 125 to 350. Last hemoglobin A1c was 11/24/17, which was noted to be 8.9, which is slightly down from the last that we have on record from 2016, which was 10.1. The patient offers no complaints at this time, stating he currently feels well today. He reports he has a good appetite and has been eating 3 meals a day. I discussed with the patient we will start him back on some long-acting insulin at a much lower dose due to his diet most likely is not the same here as it would be in his outpatient setting. I spoke with his primary care provider, Dr. Pinto, who will follow up with the patient tomorrow. PAST MEDICAL HISTORY: 1. Borderline personality disorder. 2. Autism. 3. Insulin-dependent type 2 diabetes. 4. Morbid obesity. 5. Obstructive sleep apnea. The patient is noncompliant with the CPAP. 6. GERD. 7. Hyperlipidemia. 8. Tobacco abuse. 9. Constipation. 10. Dyslipidemia. CURRENT MEDICATIONS: 1. Acetaminophen 650 mg p.o. q.6 hours p.r.n. 2. DuoNeb p.r.n. 3. Aspirin 81 mg p.o. daily. 4. Lipitor 5 mg p.o. daily. 5. Clobetasol 0.05% one application topical b.i.d. p.r.n. 6. Clomethiazole 1 application topical b.i.d. 7. Jardiance 25 mg p.o. daily. 8. Flexeril 10 mg p.o. t.i.d. p.r.n. 9. Nicotine cartridge p.r.n. 10. Voltaren EC 50 mg p.o. t.i.d. p.r.n. 11. Benadryl 50 mg p.o. q.6 hours p.r.n. 12. Colace 100 mg p.o. b.i.d. 13. Doxepin 150 mg p.o. at bedtime. 14. Pepcid 20 mg p.o. daily. 15. Tricor 145 mg p.o. daily. 16. Fish oil 2000 mg p.o. b.i.d. 17. Flonase 50 mcg both nares daily. 18. Neurontin 600 mg p.o. at bedtime. 19. Neurontin 300 mg p.o. t.i.d. 20. Hydrocortisone cream 1 application topical daily p.r.n. 21. Atarax 25 mg p.o. b.i.d. p.r.n. 22. Advil 600 mg p.o. q.6 hours p.r.n. 23. Lactobacillus 1 tablet p.o. daily. 24. Lisinopril 5 mg p.o. daily. 25. Asmanex 220 mcg 2 puffs INH daily. 26. Nicotine patch 21 mg/24 hours. 27. Nicotine gum 2 mg p.o. q.6 hours p.r.n. 28. MiraLAX 17 g daily p.r.n. 29. Minipress 4 mg p.o. at bedtime. 30. Metamucil 1 pack p.o. b.i.d. p.r.n. 31. Effexor XR 75 mg p.o. daily. ALLERGIES: KLONOPIN causes altered mental status, NSAIDS causes bleeding, METFORMIN causes diarrheas, CLONAZEPAM. FAMILY HISTORY: Mother has hypertension. SOCIAL HISTORY: Currently, smokes half a pack of cigarettes a day for the past 30 plus years. 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 He currently resides at [facility]. REVIEW OF SYSTEMS: A 14-point review of systems was performed. All the pertinent positives and negatives are mentioned in the history of present illness, otherwise are negative. PHYSICAL EXAM: General Appearance: An obese 52-year-old male, appears chronically ill, overweight, alert and oriented, in no acute distress. Very pleasant on exam. [id number] historian. Vital Signs: Temperature 97.6, heart rate 84, respirations 18, pulse oximetry 96% on room air, blood pressure 129/74. HEENT: Head is normocephalic, atraumatic. Cardiac: S1, S2. Regular rate and rhythm. Respiratory: Lungs are clear to auscultation bilaterally. Abdomen: Not assessed. Extremities: No clubbing, cyanosis, or edema. Neurologic: Alert and oriented x3. No focal deficits noted. Steady gait. DIAGNOSTIC STUDIES/LAB DATA: On 11/24/17, lipid profile: Triglycerides 853, cholesterol 210, LDL 74, HDL 27. Hemoglobin A1c 8.9. CBC reviewed from . Other labs reviewed from hospitalization. ASSESSMENT AND PLAN: Mr. Collins is a 52-year-old male with a past medical history of depression, anxiety, autism, personality disorder, insulin-dependent type 2 diabetes, and dyslipidemia, who was admitted to the psychiatric unit on 11/22/17 for depression with increased anxiety attacks with suicidal ideation. Hospital Medicine was asked to consult for diabetes and dyslipidemia management. 1. Depression, anxiety with suicidal ideation. Disposition per psychiatric team. 2. Insulin-dependent type 2 diabetes. It is noted that the patient currently is only on a lispro sliding. Plan to start Lantus 30 units b.i.d. and we will add on lispro with carb counting with 1 unit to 5 g of carbs. As well, we will continue the lispro sliding scale. I did speak with his primary care provider, Dr. Pinto, who will follow up with the patient tomorrow. Continue Jardiance, which is SGLT2 inhibitor, which should help with his hyperglycemia. 3. Dyslipidemia. The patient's Tricor was recently discontinued. This was secondary to the patient's having multiple symptom complaints and with the goal was trying to reduce some of the patient's medication burden. In regards to the patient's high triglycerides, he has a long-term history of high triglycerides and this is not abnormal for him. I see that the psych team is continuing on his Tricor as well as he is on atorvastatin. At this time, I will not make any further changes and we will defer this to the primary care provider. As well, continue fish oil. 4. History of chronic obstructive pulmonary disease. This appears to be stable at this time. Recommend to continue the patient's home medications. TIME SPENT: Approximately 60 minutes was spent on this consultation. Please note the patient's primary care provider, Dr. Pinto, will follow up tomorrow with the patient. BRIELLE DILL NP [id number]/[id number]/[facility] #: [id number] DONNY
[2017-11-26] MEDS: Insulin GLARGINE(*) 1 UNITS UNIT SUBCUT SCH (21:16)
[2017-11-26] MEDS: Prazosin CAP* 1 MG PO SCH (21:18)
[2017-11-26] MEDS: Nicotine Patch Removal NOTE PATCH OFF SCH (21:20)
[2017-11-26] MEDS: DOXEPIN 25 MG PO SCH (21:22)
[2017-11-26] MEDS: hydrOXYzine HCL TAB* 25 MG PO PRN (21:32)
[2017-11-27] MEDS: Albuterol/Ipratropium NEB.SOL* Albuterol 2.5 MG/Ipratropium 0.5 MG 3 ML INH SCH ×4 (01:50→19:09)
[2017-11-27] MEDS: Nicotine Inhaler* 10 MG AMP INH PRN ×3 (07:32→21:15)
[2017-11-27] MEDS: Insulin GLARGINE(*) 1 UNITS UNIT SUBCUT SCH ×3 (08:15→21:19)
[2017-11-27] MEDS: Insulin LISPRO* 1 UNITS UNIT SUBCUT SCH ×7 (08:16→21:22)
[2017-11-27] MEDS: Clotrimazole 1% CREAM* 30 GM TOPICAL SCH ×2 (08:32→21:14)
[2017-11-27] MEDS: Fluticasone NASAL SPRAY 50MCG* 16 gm SPRAY BTL BOTH NARES SCH (08:32)
[2017-11-27] MEDS: Aspirin EC TAB* 81 MG TAB.EC PO SCH ×2 (08:33→08:38)
[2017-11-27] MEDS: CMC:OMEGA-3 FATTY ACIDS (NF) 1,000 MG CAP PO SCH ×2 (08:33→21:11)
[2017-11-27] MEDS: Lisinopril TAB* 5 MG PO SCH (08:35)
[2017-11-27] MEDS: Docusate CAP* 100 MG PO SCH ×2 (08:35→21:11)
[2017-11-27] MEDS: Atorvastatin* 10 MG TAB PO SCH (08:35)
[2017-11-27] MEDS: Gabapentin CAP(*) 300 MG PO SCH ×4 (08:36→21:09)
[2017-11-27] MEDS: Famotidine TAB* 20 MG PO SCH (08:37)
[2017-11-27] MEDS: Venlafaxine EXT RELEASE CAP* 37.5 MG PO SCH (08:38)
[2017-11-27] MEDS: Lactobacillus Acidophilus* 1 TAB PO SCH (08:38)
[2017-11-27] MEDS: EMPAGLIFLOZIN 25 MG PO SCH (08:39)
--- NOTE | 2017-11-27 08:40 | PN ---
Subjective - Subjective Reason for Note: Progress Note History: I appreciate the help of Ashly Solis NP who saw her for the hospitalist team. 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 I note he has the metabolic syndrome. He has chronically poorly controlled T2D due to his diet, obesity, lack of exercise and anxiety. This has been exacerbated by his psychopharmacology. Dr. Sang Barrett reduced his geodon recently at my prompting to try to help with his continued weight gain and poor metabolic shape. This may or may not relate to his current altered mental state. He has had multiple office and ED visits with a variety of somatic complaints, including chest pain, that are likely somatiform manifestations of anxiety. Today, he complains of right sided chest pain and pain from a heel spur - nothing new. He has hyperlipidemia and for some unknown reason his mental health team decided to check fasting lipids. His triglyerides are super high. I stopped his fenofibrate recently (which doesn't make a whole lot of difference) because the dangers of polypharmacy. I note that restarting tricor and giving him a sausage for breakfast makes little sense. Active Problems: Active Problems Metabolic syndrome (Chronic) E88.81 Polypharmacy (Chronic) Z79.899 Somatic complaints, multiple (Chronic) R68.89 Current Medications: Current Medications Acetaminophen (Tylenol Tab*) 650 mg PO Q6H PRN PRN Reason: PAIN Last Admin: 11/24/17 18:00 Dose: 650 mg Albuterol/Ipratropium (Duoneb (Albuterol 2.5 Mg/Ipratropium 0.5 Mg)) 1 neb INH [id number] AWAKE [facility] Last Admin: 11/27/17 01:50 Dose: Not Given Aspirin (Aspirin Ec Tab*) 81 mg PO DAILY [facility] Last Admin: 11/26/17 08:59 Dose: 81 mg Atorvastatin Calcium (Lipitor*) 5 mg PO DAILY [facility] Last Admin: 11/26/17 08:59 Dose: 5 mg Clobetasol Propionate (Clobetasol 0.05% Oint*) 1 applic TOPICAL BID PRN PRN Reason: ITCHING Clotrimazole (Clotrimazole 1%*) 1 applic TOPICAL BID [facility] Last Admin: 11/26/17 21:23 Dose: 1 applic Cyclobenzaprine HCl (Flexeril Tab*) 10 mg PO TID PRN PRN Reason: MUSCLE SPASMS Last Admin: 11/26/17 11:11 Dose: 10 mg Device (Nicotine Mouth Piece*) 1 each INH .CARTRIDGE [facility] Last Admin: 11/26/17 01:25 Dose: 1 each Dextrose (D50w Syringe 50 Ml*) 12.5 gm IV PUSH .FOR FS < 60 - SS PRN PRN Reason: FS < 60 Diclofenac Sodium (Voltaren Ec Tab*) 50 mg PO TID PRN PRN Reason: PAIN Last Admin: 11/26/17 11:10 Dose: 50 mg Diphenhydramine HCl (Benadryl Po*) 50 mg PO Q6H PRN PRN Reason: Anxiety/insomnia Last Admin: 11/25/17 16:16 Dose: 50 mg Docusate Sodium (Colace Cap*) 100 mg PO BID [facility] Last Admin: 11/26/17 21:17 Dose: 100 mg Doxepin HCl (Doxepin (Nf)) 150 mg PO BEDTIME [facility] Last Admin: 11/26/17 21:22 Dose: 150 mg Famotidine (Pepcid Tab*) 20 mg PO DAILY [facility] Last Admin: 11/26/17 08:58 Dose: 20 mg Fenofibrate (Tricor(Nf)) 145 mg PO DAILY [facility] Last Admin: 11/26/17 09:46 Dose: 145 mg Fish Oil (Fish Oil (Nf)) 2,000 mg PO BID [facility] Last Admin: 11/26/17 21:24 Dose: 2,000 mg Fluticasone Propionate (Flonase Nasal [place] 50mcg*) 1 spray BOTH NARES DAILY [facility] Last Admin: 11/26/17 07:58 Dose: 1 spray Gabapentin (Neurontin Cap(*)) 600 mg PO BEDTIME [facility] Last Admin: 11/26/17 21:18 Dose: 600 mg Gabapentin (Neurontin Cap(*)) 300 mg PO TID [facility] Last Admin: 11/26/17 21:18 Dose: 300 mg Hydrocortisone (Hytone Cream 1%*) 1 applic TOPICAL DAILY PRN PRN Reason: ITCHING Hydroxyzine HCl (Atarax Tab*) 25 mg PO BID PRN PRN Reason: ANXIETY Last Admin: 11/26/17 21:32 Dose: 25 mg Ibuprofen (Advil Tab*) 200 mg PO Q6H PRN PRN Reason: PAIN/INFLAMMATION Last Admin: 11/25/17 12:42 Dose: 200 mg Insulin Glargine (Lantus(*)) 30 units SUBCUT Q12H [facility] Last Admin: 11/27/17 08:15 Dose: 30 units Insulin Human Lispro (Humalog*) 0 units SUBCUT AC [facility]; Protocol Last Admin: 11/27/17 08:16 Dose: 11 units Insulin Human Lispro (Humalog*) 0 units SUBCUT ACHS [facility]; Protocol Last Admin: 11/27/17 08:17 Dose: 4 units Lactobacillus Rhamnosus (Lactobacillus Acidophilus*) 1 tab PO DAILY [facility] Last Admin: 11/26/17 09:46 Dose: 1 tab Lisinopril (Prinivil Tab*) 5 mg PO DAILY [facility] Last Admin: 11/26/17 08:58 Dose: 5 mg Mometasone Furoate (Asmanex 220 Mcg Mdi *) 2 puff INH 1800 [facility] Last Admin: 11/26/17 18:17 Dose: 2 puff Mupirocin (Bactroban 2 % Oint*) 1 applic TOPICAL TID [facility] Last Admin: 11/26/17 21:20 Dose: 1 applic Nicotine (Nicotine Inhaler*) 10 mg INH Q2H PRN PRN Reason: CRAVING Last Admin: 11/27/17 07:32 Dose: 10 mg Nicotine (Nicotine Patch 21 Mg/24 Hr*) 1 patch TRANSDERM 0800 PRN PRN Reason: CRAVINGS Nicotine Polacrilex (Nicotine Gum*) 2 mg PO Q2H PRN PRN Reason: CRAVING Cmc:Empagliflozin ( (Jardiance) 25 Mg Tab) 1 dose PO DAILY [facility] Last Admin: 11/26/17 09:46 Dose: 1 dose Pharmacy Profile Note (Nicotine Patch Removal Note*) 1 note PATCH OFF 2100 [facility] Last Admin: 11/26/17 21:20 Dose: Not Given Polyethyl Glycol/Propylene Glycol (Lubricant Eye Drops) 1 drop BOTH EYES DAILY PRN PRN Reason: DRY EYES Polyethylene Glycol/Electrolytes (Miralax*) 17 gm PO DAILY PRN PRN Reason: CONSTIPATION Prazosin HCl (Minipress Cap*) 4 mg PO BEDTIME [facility] Last Admin: 11/26/17 21:18 Dose: 4 mg Psyllium Hydrophilic Mucilloid (Metamucil Pete*) 1 pkt PO BID PRN PRN Reason: CONSTIPATION Venlafaxine HCl (Effexor Xr Cap*) 75 mg PO DAILY [facility] Home Medications: Home Medications Medication Instructions Recorded Confirmed Type Acetaminophen TAB* [Tylenol TAB*] 650 mg PO Q6HR PRN 08/02/12 11/22/17 History Artificial Tears* 15 ML BTL 1 drop BOTH EYES DAILY PRN 08/02/12 11/22/17 History [Polyvinyl Alcohol 1.4% OPTH*] Docusate CAP* [Colace Cap*] 100 mg PO BID PRN 08/02/12 11/22/17 History Fenofibrate(NF) [Tricor(NF)] 145 mg PO DAILY 08/02/12 11/22/17 History Insulin Lispro Protamin/Lispro 65 - 70 units SUBCUT BID 08/02/12 11/22/17 History [Humalog Mix 75-25 Kwikpen] Psyllium PETE* [Metamucil PETE*] 1 pkt PO BID PRN 08/02/12 11/22/17 History Lisinopril TAB* [Prinivil TAB 5 5 mg PO QAM 06/09/13 11/22/17 History MG*] Cyclobenzaprine TAB* [Flexeril 10 10 mg PO TID PRN 03/03/15 11/22/17 History MG TAB*] FLUoxetine CAP* [Prozac CAP*] 40 mg PO QAM 03/03/15 11/22/17 History Fluticasone NASAL SPRAY 50MCG* 1 spray BOTH NARES DAILY 03/03/15 11/22/17 History [Flonase NASAL SPRAY 50MCG*] Prazosin CAP* [Minipress CAP*] 4 mg PO BEDTIME 03/03/15 11/22/17 History Ranitidine TAB (NF) [Zantac TAB 150 mg PO DAILY 03/03/15 11/22/17 History (NF)] busPIRone TAB* [Buspar TAB*] 10 mg PO TID 03/03/15 11/22/17 History hydrOXYzine HCL TAB* [Atarax 25 MG 25 mg PO BID PRN 03/03/15 11/22/17 History TAB*] Polyethylene Glycol 3350* 17 gm PO DAILY #12 packet 02/17/16 11/22/17 Rx [Miralax*] Albuterol/Ipratropium RESP(NF) 1 puff INH QID 11/07/17 11/22/17 History [Combivent Respimat(NF)] Aspirin EC TAB* [Ecotrin EC Low 81 mg PO DAILY 11/07/17 11/22/17 History Dose 81 MG*] Bisacodyl SUPP* [Dulcolax Supp*] 10 mg [place] DAILY PRN 11/07/17 11/22/17 History Clobetasol Propionate/Emoll 0.05 % TOPICAL BID PRN 11/07/17 11/22/17 History [Clobetasol Propionate Emo] Clotrimazole 1% CREAM* 1 applic TOPICAL BID 11/07/17 11/22/17 History [Clotrimazole 1%*] Diclofenac Sodium EC TAB* 50 mg PO TID PRN 11/07/17 11/22/17 History [Voltaren EC TAB*] Doxepin HCl 150 mg PO BEDTIME 11/07/17 11/22/17 History Empagliflozin [Jardiance] 25 mg PO DAILY 11/07/17 11/22/17 History Fluticasone HFA 220 mcg(NF) 2 puff INH DAILY 11/07/17 11/22/17 History [Flovent HFA 220 Mcg(NF)] Gabapentin CAP(*) [Neurontin 300 300 mg PO TID 11/07/17 11/22/17 History CAP(*)] Gabapentin CAP(*) [Neurontin 300 600 mg PO BEDTIME 11/07/17 11/22/17 History CAP(*)] Hydrocortisone 1% CREAM* [Hytone 1 applic TOPICAL DAILY PRN 11/07/17 11/22/17 History Cream 1%*] Ibuprofen TAB* [Advil TAB*] 200 mg PO Q6H PRN 11/07/17 11/22/17 History L.acidoph,Paracasei, B.lactis 1 cap PO DAILY 11/07/17 11/22/17 History [Probiotic] Mupirocin 2% OINT* [Bactroban 2 % 1 applic TOPICAL TID 11/07/17 11/22/17 History Oint*] Nicotine Inhaler* 10 mg INH Q2H PRN 11/07/17 11/22/17 History [id number] Ethyl Esters (NF) 2 gm PO BID 11/07/17 11/22/17 History [Lovaza (NF)] Pravastatin (NF) [Pravachol (NF)] 20 mg PO DAILY 11/07/17 11/22/17 History Testosterone Gel 25 mg (Nf) 25 mg TOPICAL QAM 11/07/17 11/22/17 History [Testosterone Gel 25 mg/2.5 g] Testosterone [Axiron] 30 mg TOPICAL QAM 11/07/17 11/22/17 History diPHENhydraMINE PO* [Benadryl PO 25 mg PO TID PRN 11/07/17 11/22/17 History 25 MG TAB*] Allergies: Allergies Allergy/AdvReac Type Severity Reaction Status Date / Time clozapine [From Clozaril] Allergy See Comment Verified 11/15/17 16:57 metformin Allergy Diarrhea Verified 11/15/17 16:57 NSAIDS (Non-Steroidal Allergy Bleeding Verified 11/15/17 16:57 Anti-Inflamma quetiapine Allergy Altered Verified 11/15/17 16:57 Mental Status Objective - Vital Signs Vital Signs: Vital Signs 11/26/17 11/26/17 11/26/17 09:00 11:11 11:19 Pulse Rate Respiratory 16 16 16 Rate Blood Pressure (mmHg) O2 Sat by Pulse Oximetry 11/26/17 11/26/17 11/26/17 11:58 12:44 13:13 Pulse Rate 84 Respiratory 16 14 16 Rate Blood Pressure (mmHg) O2 Sat by Pulse 96 Oximetry 11/26/17 11/26/17 11/26/17 13:15 15:56 20:40 Pulse Rate 83 Respiratory 16 18 16 Rate Blood Pressure (mmHg) O2 Sat by Pulse 98 Oximetry 11/26/17 11/26/17 21:00 21:18 Pulse Rate 93 Respiratory 18 18 Rate Blood Pressure 129/71 (mmHg) O2 Sat by Pulse 96 Oximetry - Intake and Output Intake and Output: ADLs: Meal Record Start: 11/22/17 18: 12 Freq: Status: Active Protocol: Created 11/22/17 18:12 System (Rec: 11/22/17 18:12 System [id number]) Intake and Output Start: 11/22/17 13: 12 Freq: Status: Active Protocol: Created 11/22/17 13:12 System (Rec: 11/22/17 13:12 System [id number]) - Physical Exam General Physical Exam Comment: He looks well. He has some anxiety and has many somatic complaints General: No Cyanosis, No Anemia, No Jaundice, No Clubbing Skin: Normal: Rash Lungs and Chest: Yes: Chest Expansion Full, Chest Expansion Symetrica, Percussion Note Resonant, Vessicular Breath Sounds. No: Crackles, Wheezes Heart Rate and Rhythm: Regular Additional Cardiovascular: Yes: Normal Heart Sounds, Pedal Edema - trace. No: Heart Murmur Abdominal Exam: Yes: Soft. No: Distention - obese, Hepatomegaly, Abdominal Tenderness, Guarding, Rebound Tenderness Results - Results Lab Results: Laboratory Results - last 24 hr 11/26/17 11/26/17 11/26/17 11:56 16:35 20:44 POC Glucose (mg/dL) 293 H 212 H 212 H 11/27/17 07:39 POC Glucose (mg/dL) 218 H Assessment - Problem List Assessment: Patient Problems Metabolic syndrome (Chronic) Polypharmacy (Chronic) Somatic complaints, multiple (Chronic) Chest pain (Acute 03/03/15) Hepatic steatosis (Acute) Tobacco abuse (Acute) Type 2 diabetes mellitus (Acute) Autism (Chronic) Borderline personality disorder (Chronic) COPD (chronic obstructive pulmonary disease) (Chronic) GERD (gastroesophageal reflux disease) (Chronic) Hyperlipidemia (Chronic) Obesity (BMI 30-39.9) (Chronic) Obesity screen (Chronic) Sleep apnea (Chronic) Plan: Type 2 diabetes mellitus (Acute) He has chronically poorly controlled T2D due to non-compliance with lifestyle issues and stress. He is already doing better here with a basal/bolus regimen (he is on fixed mixed regimen as an out patient to improve compliance). Metabolic syndrome (Chronic) He has all the manifestations of this - central obesity, dyslipidemia, hypertension, T2D. He is at high risk for arterial disease. Polypharmacy (Chronic) He is at danger from drug interactions. Also, a pill for every ill has led him to have too many medications and an imponderable hazard from drug-drug interactions. I am in an active deprescribing state. I can't do this with his psychopharmacology (though I would encourage this). I am stopping what I can. Fenofibrate was one of the victims of my deprescribing program. Somatic complaints, multiple (Chronic) He has a somatization disorder, this is clearly a manifestation of anxiety and falls within the domain of hypochondriasis. Given his metabolic syndrome, when he complains of problems, they are taken seriously - but there is a real danger of his "crying martin". His multiple recent episodes of chest pain result in multiple visits to my office or to the emergency room to have acute VT ruled out. This has waisted considerable resources, but is a difficult one to manage. He would benefit from counseling specifically to address this. Hyperlipidemia: I stoped fenofibrae (tricor) and I do not welcome restarting it in the [facility] Nor do I understand why the psychiatric team ordered this test. He is at risk of pancreatitis. However, feeding him sausages for breakfast and starting tricor makes no sense. If he doesn't control his diet/smokes and does not control his diabetes - of course he is going to have hypertriglyceridemia. However, I think we need to be careful to add further risk with the fenofibrate , which is a bad actor in terms of drug interactions. I will increase the dose of atorvastatin. Chest pain (Acute 03/03/15) Today he has right sided chest pain - this is benign Hepatic steatosis (Acute) ongoing Tobacco abuse (Acute) I counseled him (again) to stop The psychiatric team should examine whether reducing geodon was responsible for his change in behavior. From my point of view, he looks anxious and not psychotic. I would welcome other approaches to his anxiety/depression other than drugs that exacerbate his metabolic syndrome. I note that he has chronic state with his current living situation - something that he has vociferously complained about for years. This may not be alterable, and he might be equally dissatisfied with any situation. I will keep an eye on his glucose numbers, but they are better at the [facility] [place] outside. I encourage him to exercise with the equipment here whilst he is an inpatient
[2017-11-27] MEDS: CMCS Fenofibrate(NF) 145 MG TAB PO SCH (08:41)
[2017-11-27] MEDS ORDERED: Atorvastatin* 10 MG TAB PO SCH (09:00)
[2017-11-27] MEDS: Mupirocin 2% OINT* TUBE TOPICAL SCH ×3 (09:34→21:14)
[2017-11-27] MEDS: Cyclobenzaprine TAB* 10 MG PO PRN ×2 (11:24→18:07)
[2017-11-27] MEDS: hydrOXYzine HCL TAB* 25 MG PO PRN ×2 (11:25→18:10)
--- NOTE | 2017-11-27 11:43 | PN ---
MHU: Group Therapy Note - Service Type Service Type: [id number] Group Psychotherapy - Cognitive Behavioral Group Therapy ( CBT):Patient was attentive and participatory in CBT programming this morning, and remained in good behavioral control. Patient expressed positive insights regarding relevant treatment interventions and goals.
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
[2017-11-27] MEDS: Acetaminophen TAB* 325 MG PO PRN (18:09)
[2017-11-27] MEDS: Mometasone 220 MCG MDI INH SCH (18:15)
[2017-11-27] MEDS: Prazosin CAP* 1 MG PO SCH (21:11)
[2017-11-27] MEDS: DOXEPIN 25 MG PO SCH (21:12)
[2017-11-27] MEDS: Nicotine Patch Removal NOTE PATCH OFF SCH (21:13)
[2017-11-28] MEDS: Albuterol/Ipratropium NEB.SOL* Albuterol 2.5 MG/Ipratropium 0.5 MG 3 ML INH SCH ×3 (01:25→13:59)
[2017-11-28] MEDS: Nicotine Inhaler* 10 MG AMP INH PRN ×2 (05:15→08:03)
[2017-11-28] MEDS: Insulin LISPRO* 1 UNITS UNIT SUBCUT SCH ×6 (08:35→16:21)
[2017-11-28] MEDS: Insulin GLARGINE(*) 1 UNITS UNIT SUBCUT SCH (08:36)
[2017-11-28] MEDS: Fluticasone NASAL SPRAY 50MCG* 16 gm SPRAY BTL BOTH NARES SCH (08:38)
[2017-11-28] MEDS: Lisinopril TAB* 5 MG PO SCH (08:39)
[2017-11-28] MEDS: Docusate CAP* 100 MG PO SCH (08:39)
[2017-11-28] MEDS: Aspirin EC TAB* 81 MG TAB.EC PO SCH (08:39)
[2017-11-28] MEDS: Venlafaxine EXT RELEASE CAP* 37.5 MG PO SCH (08:40)
[2017-11-28] MEDS: Lactobacillus Acidophilus* 1 TAB PO SCH (08:40)
[2017-11-28] MEDS: Gabapentin CAP(*) 300 MG PO SCH ×2 (08:41→14:09)
[2017-11-28] MEDS: Famotidine TAB* 20 MG PO SCH (08:41)
[2017-11-28] MEDS: CMC:OMEGA-3 FATTY ACIDS (NF) 1,000 MG CAP PO SCH (08:41)
[2017-11-28] MEDS ORDERED: Atorvastatin* 20 MG TAB PO SCH (09:00)
[2017-11-28] MEDS ORDERED: EMPAGLIFLOZIN 25 MG PO SCH (09:00)
[2017-11-28] MEDS: hydrOXYzine HCL TAB* 25 MG PO PRN (09:23)
[2017-11-28] MEDS: Clotrimazole 1% CREAM* 30 GM TOPICAL SCH (09:23)
[2017-11-28] MEDS: Mupirocin 2% OINT* TUBE TOPICAL SCH ×2 (09:24→14:34)
[2017-11-28] MEDS: Acetaminophen TAB* 325 MG PO PRN (10:23)
[2017-11-28 10:51] VITALS: BP 129/84
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
[2017-11-28] MEDS: diPHENhydraMINE PO* 25 MG PO PRN (14:10)
== END 2017-11-28 17:20 | disposition home or self-care (01) | DRG 885 ==
LOC: ED 12:58 → BSU 17:33
PROVIDERS: ADMIT Psychiatry & Neurology Psychiatry; ATTEND Psychiatry & Neurology Psychiatry
PROC: GZHZZZZ Group Psychotherapy (ICD-10-PCS; principal; 2017-11-27)
DX: F33.9 Major depressive disorder, recurrent, unspecified (principal); R45.851 Suicidal ideations; F41.9 Anxiety disorder, unspecified; E11.36 Type 2 diabetes mellitus with diabetic cataract; E78.5 Hyperlipidemia, unspecified; I10 Essential (primary) hypertension; J44.9 Chronic obstructive pulmonary disease, unspecified; G47.30 Sleep apnea, unspecified; K21.9 Gastro-esophageal reflux disease without esophagitis; K58.9 Irritable bowel syndrome, unspecified; F17.210 Nicotine dependence, cigarettes, uncomplicated; M19.90 Unspecified osteoarthritis, unspecified site; F84.0 Autistic disorder; Z96.1 Presence of intraocular lens; F60.3 Borderline personality disorder; G47.33 Obstructive sleep apnea (adult) (pediatric); E88.81 Metabolic syndrome and other insulin resistance; K76.0 Fatty (change of) liver, not elsewhere classified; E66.9 Obesity, unspecified; F45.9 Somatoform disorder, unspecified; Z56.0 Unemployment, unspecified; Z88.6 Allergy status to analgesic agent; Z88.8 Allergy status to other drugs, medicaments and biological substances; Z98.42 Cataract extraction status, left eye; Z90.49 Acquired absence of other specified parts of digestive tract; Z87.01 Personal history of pneumonia (recurrent); Z81.8 Family history of other mental and behavioral disorders; Z81.1 Family history of alcohol abuse and dependence; Z79.82 Long term (current) use of aspirin; Z79.4 Long term (current) use of insulin; Z68.34 Body mass index [BMI] 34.0-34.9, adult; Z23 Encounter for immunization
CPT/HCPCS: 36415; 80053; 80061; 80307; 80320; 80329; 81003; 83036; 83721; 84443; 84484; 85025; 90686; 90853; 94640; 99222; 99231; 99238; 99284; A9270-GY; G0480

== ENCOUNTER 2018-01-05 23:14 | Emergency (ER) | payer MEDICARE, MEDICAID ==
--- NOTE | 2018-01-05 23:49 | ED ---
Psychiatric Complaint - HPI Summary HPI Summary: 52 year old M BIB EMS to [facility] with a chief complaint of depression since last night, worse since two hours ago. Symptoms aggravated by nothing. Symptoms alleviated by nothing. He reports suicidal ideation last night and had a plan last night, but did not act upon his plan. He is not currently suicidal. He states that he was angry at his neighbors last night and wanted to beat them up , but did not. He is not currently homicidal. He denies auditory and visual hallucinations. Patient has hx depression, hx suicide attempt, hx psych admission. He is on psychiatric medication. Patient additionally complains of constipation lasting 16 hours. He reports chest pain that radiates to back. Also notes pelvic pain, urinary incontinence, penis pain, burning sensation in penis, and testicular pain. Also complains of low libido, despite not having sex for 18 years, which is making him depressed. - History Of Current Complaint Chief Complaint: EDMentalHealth Time Seen by Provider: 01/05/18 23:24 Hx Obtained From: Patient Onset/Duration: Lasting Days - 1, Still Present, Worse Since - 2 hours ago Timing: Constant Aggravating Factor(s): Nothing Alleviating Factor(s): Nothing Has Suicidal: Denies: Thoughts Has Homicidal: Denies: Thoughts - Allergies/Home Medications Allergies/Adverse Reactions: Allergies Allergy/AdvReac Type Severity Reaction Status Date / Time clozapine [From Clozaril] Allergy See Comment Verified 11/15/17 16:57 metformin Allergy Diarrhea Verified 11/15/17 16:57 NSAIDS (Non-Steroidal Allergy Bleeding Verified 11/15/17 16:57 Anti-Inflamma quetiapine Allergy Altered Verified 11/15/17 16:57 Mental Status PMH/Surg Hx/FS Hx/Imm Hx Previously Healthy: No Endocrine/Hematology History: Reports: Hx Diabetes, Other Endocrine/ Hematological Disorders - large RBCs per pt Denies: Hx Thyroid Disease, Hx Anemia Cardiovascular History: Reports: Hx Angina, Hx Hypercholesterolemia, Hx Hypertension - ON DAILY MEDS Denies: Hx Congestive Heart Failure, Hx Coronary Artery Disease, Hx Myocardial Infarction, Hx Peripheral Vascular Disease, Hx Valvular Heart Disease Respiratory History: Reports: Hx Asthma, Hx Chronic Obstructive Pulmonary Disease (COPD), Hx Pneumonia, Hx Sleep Apnea - NOT USING CPAP ANY MORE, Other Respiratory Problems/Disorders - PNEUMONIA, LAST WINTER GI History: Reports: Hx Gall Bladder Disease - removed in 1999, Hx Gastroesophageal Reflux Disease - ACID REFLUX, Hx Gastrointestinal Bleed, Hx Irritable Bowel, Other GI Disorders - hemorroids, frequent constipation Denies: Hx Jaundice, Hx Ulcer History: Reports: Other Problems/Disorders - occassional hesitation, UTI Denies: Hx Renal Disease Musculoskeletal History: Reports: Hx Arthritis - GENERAL, Hx Tendonitis - SHOULDERS, Other Musculoskeletal History - ankle fs, DDD in neck, 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 Sensory History: Reports: Hx Cataracts - removed, Hx Contacts or Glasses - reading glasses, Other Sensory Impairments - LENS IMPLANTS BILATERAL Denies: Hx Deafness, Hx Hearing Aid Opthamlomology History: Reports: Hx Cataracts - removed, Hx Contacts or Glasses - reading glasses, Other Sensory Impairments - LENS IMPLANTS BILATERAL Neurological History: Reports: Hx Developmental Delay - AUTISM, Other Neuro Impairments/Disorders - HEAD INJURY AT 4 YEARS OLD Psychiatric History: Reports: Hx Anxiety - MEDS, Hx Autism, Hx Depression, Hx Post Traumatic Stress Disorder - self reported, Hx Inpatient Treatment, Hx Bipolar Disorder, Hx Suicide Attempt, Other Psychiatric Issues/Disorders - mood disorder Denies: Hx Eating Disorder, Hx Schizophrenia, Hx of Violent Episodes Against Others - Pt does have concerns that he will become aggressive with his neighbors. - Surgical History Surgery Procedure, Year, and Place: 2003 LEFT ankle FRACTURE [place]. wisdom teeth. 1999 cholecystectomy; [place]. bilateral cataract removal Hx Anesthesia Reactions: No - Immunization History Date of Tetanus Vaccine: unknown Date of Influenza Vaccine: unknown Infectious Disease History: No Infectious Disease History: Denies: Hx Clostridium Difficile, Hx Hepatitis, Hx Human Immunodeficiency Virus (HIV), Hx of Known/Suspected MRSA, Hx Shingles, Hx Tuberculosis, Traveled Outside the [place] in Last 30 Days - Family History Known Family History: Positive: Diabetes - Social History Alcohol Use: None Alcohol Amount: RECOVERING ALCOHOLIC, 2005 Substance Use Type: Reports: None Hx Tobacco Use: Yes Smoking Status (MU): Current Every Day Smoker Type: Cigarettes Amount Used/How Often: 1/2 PPD 27 YRS Length of Time of Smoking/Using Tobacco: 30 years Have You Smoked in the Last Year: Yes Review of Systems Positive: Chest Pain - radiates to back Positive: Other - constipation Positive: incontinence, other - penis pain, burning sensation in penis, and testicular pain. Positive: Other - pelvic pain Positive: Depressed, Other - low libido; NEGATIVE: auditory and visual hallucinations, SI, HI All Other Systems Reviewed And Are Negative: Yes Physical Exam - Summary Physical Exam Summary: GENERAL: Patient is a well-developed and nourished M who is lying comfortable in the stretcher. Patient is not in any acute respiratory distress. HEAD AND FACE: Normocephalic EYES: PERRLA, EOMI x 2. EARS: Hearing grossly intact. MOUTH: Oropharynx within normal limits. NECK: Supple, trachea is midline, no adenopathy, no JVD, no carotid bruit. CHEST: Symmetric, no tenderness at palpation LUNGS: Clear to auscultation bilaterally. No wheezing or crackles. CVS: Regular rate and rhythm, S1 and S2 present, no murmurs or gallops appreciated. ABDOMEN: Soft, non-tender. Bowel sounds are normal. No abdominal abnormal pulsations. EXTREMITIES: Full ROM in all major joints, no edema, no cyanosis or clubbing. NEURO: Alert and oriented x 3. No acute neurological deficits. Speech is normal and follows commands. SKIN: Dry and warm PSYCH: Flat affect, no SI, no HI, no auditory or visual hallucinations TESTICULAR EXAM: Witnessed by Hossein RN. Testicles were not erythematous or swollen. Triage Information Reviewed: Yes Vital Signs On Initial Exam: Initial Vitals Temp Pulse Resp BP Pulse Ox 98.9 F 84 18 127/97 99 01/05/18 23:15 01/05/18 23:15 01/05/18 23:15 01/05/18 23:15 01/05/18 23:15 Vital Signs Reviewed: Yes Diagnostics - Vital Signs Vital Signs Temp Pulse Resp BP Pulse Ox 01/05/18 23:15 98.9 F 84 18 127/97 99 - Laboratory Result Diagrams: 01/06/18 00:00 01/06/18 00:00 Lab Statement: Any lab studies that have been ordered have been reviewed, and results considered in the medical decision making process. - Radiology CXR Radiology Interpretation Completed By: ED Physician - No acute process. Pending official report. - EKG 2330 Cardiac Rate: NL - 86 BPM EKG Rhythm: Sinus Rhythm EKG Interpretation: LAFB. Q waves in anterior leads. EKG Comparison: No Significant Change - From previous EKG 11/15/17 Re-Evaluation - Re-Evaluation First Eval Re-Evaluation Time: 01:58 Comment: He is anxious and requesting Aitvan. Course/Dx - Course Course Of Treatment: 52 year old M BIB EMS to [facility] with a chief complaint of depression since last night, worse since two hours ago. Workup is unremarkable including 2 sets of troponins. CXR shows no acute process. Patient evaluated at bedside by mental health feather stitcher. Patient is being put on mental health hold. Dr. Leigh, psychiatry, will come see him in the morning because he believes SI and depression are related to medical complaints that patient has. Patient will be signed out to Dr. Madsen at shift change, awaiting MHE, pending dispo. - Differential Dx/Clinical Impression Provider Diagnosis: Mood disorder Discharge - Sign-Out/Discharge Documenting (check all that apply): Sign-Out Patient Signing out patient TO: Lennie Madsen - awaiting MHE, pending dispo - Discharge Plan Condition: Stable Disposition: HOME Patient Education Materials: Mood Disorders (ED) Referrals: Chinmay Pinto MD [Primary Care Provider] - Additional Instructions: Follow up with [facility] this week. take all medications as previously instructed. May resume all activities and medications. Please consult with Dr. Pinto regarding patient's medications and administration method. - Billing Disposition and Condition Condition: STABLE Disposition: Home - Attestation Statements Document Initiated by Scribe: Yes Documenting Scribe: Grace Garcia Provider For Whom Rebeca is Documenting (Include Credential): Melody Tovar MD Scribe Attestation: Grace Burgos, scribed for Melody Tovar MD on 01/07/18 at 0315. Scribe Documentation Reviewed: Yes Provider Attestation: The documentation as recorded by the scribGrace wan accurately reflects the service I personally performed and the decisions made by me, Melody Tovar MD
[2018-01-05] MEDS ORDERED: Magnesium CITRATE* 300 ML BTL PO ONE (23:55)
[2018-01-05] MEDS ORDERED: Ketorolac INJ* 60 MG/2 ML VIAL IM ONE (23:58)
[2018-01-06 00:10] LABS: ABS Basophils 0.1 10^3/ul (0-0.2); ABS Eosinophils 0.3 10^3/ul (0-0.6); ABS Lymphocytes 3.1 10^3/ul (1.0-4.8); ABS Monocytes 0.7 10^3/ul (0-0.8); ABS Neutrophils 3.5 10^3/ul (1.5-7.7); ABS Nucleated RBC 0 10^3/ul; Eosinophil % 3.6 % (0-6); Hematocrit 44 % (42-52); Hemoglobin 15.5 g/dl (14.0-18.0); Lymphocyte % 40.2 % (25-47); Mean Corpuscular HGB Conc 36 g/dl (31-36); Mean Corpuscular Hemoglobin 36 pg (27-31); Mean Corpuscular Volume 100 fL (80-94); Mean Platelet Volume 8.1 um3 (7.4-10.4); Nucleated Red Blood Cells % 0.1; Platelet Count 165 10^3/ul (150-450); Red Blood Count 4.37 10^6/ul (4.00-5.40); Red Cell Distribution Width 14 % (10.5-15); White Blood Count 7.7 10^3/ul (3.5-10.8)
[2018-01-06 00:19] LABS: INR 0.9 (0.77-1.02)
[2018-01-06 00:19] LABS: Urine Appearance Clear; Urine Blood Negative (Negative); Urine Color Straw; Urine Ketones Negative (Negative); Urine Protein Negative (Negative); Urine Specific Gravity 1.003 (1.010-1.030); Urine Urobilinogen Negative (Negative)
[2018-01-06 00:29] LABS: EGFR Non-African American 121.4 (>60)
[2018-01-06] MEDS ORDERED: LORazepam TAB(*) 1 MG PO ONE ×2 (01:58→12:20)
[2018-01-06] MEDS ORDERED: Mouth Piece, Nicotine* 1 EACH CARTRIDGE INH PRN (03:50)
[2018-01-06] MEDS ORDERED: Nicotine Inhaler* 10 MG AMP INH ONE (03:50)
--- NOTE | 2018-01-06 07:10 | ED ---
Progress - Progress Note Progress Note: Patient was signed out from Dr. Tovar to Dr. Madsen upon physician shift change pending mental health evaluation. - Consult/PCP Time Called: 02:20 Course/Dx - Course Course Of Treatment: Patient was signed out to Dr. Madsen from Dr. Tovar upon physician shift change pending MHE and disposition. Dr. Leigh. psychiatrist, recommends discharging the patient. The patient will be discharged home. Patient is agreeable with this plan. - Diagnoses Provider Diagnoses: Mood disorder - Provider Notifications Discussed Care Of Patient With: Abdelrahman Leigh Time Discussed With Above Provider: 13:18 Instructed by Provider To: Other - Dr. Leigh, psychiatrist, recommends discharge after MHE with dx of mood disorder Discharge - Sign-Out/Discharge Documenting (check all that apply): Patient Departure - discharge home - Discharge Plan Condition: Stable Disposition: HOME Patient Education Materials: Mood Disorders (ED) Referrals: Chinmay Pinto MD [Primary Care Provider] - Additional Instructions: Follow up with [facility] this week. take all medications as previously instructed. May resume all activities and medications. Please consult with Dr. Pinto regarding patient's medications and administration method. - Billing Disposition and Condition Condition: STABLE Disposition: Home - Attestation Statements Document Initiated by Scribe: Yes Documenting Scribe: Karissa Montilla Provider For Whom Rebeca is Documenting (Include Credential): Lennie Madsen MD Scribe Attestation: Karissa Burgos, scribed for Lennie Madsen MD on 01/07/18 at 1110. Scribe Documentation Reviewed: Yes Provider Attestation: The documentation as recorded by the naniibKarissa wan accurately reflects the service I personally performed and the decisions made by Lennie abdullahi MD
--- NOTE | 2018-01-06 07:51 | RAD ---
HISTORY: chest pain COMPARISONS: November 15, 2017 VIEWS: 1: frontal AP view of the chest at 11:45 PM FINDINGS: LINES AND TUBES: None. CARDIOMEDIASTINAL SILHOUETTE: The cardiomediastinal silhouette is normal for portable technique. PLEURA: The costophrenic angles are sharp. No pleural abnormalities are noted. LUNG PARENCHYMA: The lungs are clear. ABDOMEN: The upper abdomen is clear. There is no subphrenic gas. BONES AND SOFT TISSUES: No bone or soft tissue abnormalities are noted. IMPRESSION: NO ACTIVE CARDIOPULMONARY DISEASE. R1
[2018-01-06 14:24] VITALS: BP 146/93
== END 2018-01-06 14:24 | disposition home or self-care (01) ==
LOC: ED 23:14
DX: F39 Unspecified mood [affective] disorder (principal); F17.210 Nicotine dependence, cigarettes, uncomplicated; R07.9 Chest pain, unspecified; R10.2 Pelvic and perineal pain
CPT/HCPCS: 36415; 71045; 80053; 80307; 80320; 80329; 81003; 83605; 83880; 84443; 84484; 85025; 85610; 85730; 93005; 96372; 99285; A9270-GY; G0480; J1885

== ENCOUNTER → 2018-01-26 14:06 | Emergency (ER) | payer MEDICARE, MEDICAID ==
[~2018-01-26 14:06] MED LIST changes: -ALPRAZolam TAB* 0.5 MG PO ONE; +Acetaminophen TAB* 325 MG PO ONE; -Iodixanol* (CONTRAST) 320 MG/ML 100 ML SDV IV ONE; -LORazepam INJ* 2 MG/ML 1 ML VIAL IV PUSH ONE; -NS 0.9% 1000 ML* 1,000 ML IV ONE
--- NOTE | 2018-01-26 14:37 | ED ---
GI/ HPI - HPI Summary HPI Summary: This patient is a 52 year old male brought in by ambulance to [facility] with a chief complaint of rectal pain since this morning. Patient has a hx of constipation and takes stool softeners for it. Patient states he woke up with the pain and additionally cites pain in the chest, legs, neck, and back. The pain is rated 8/10 in severity. Symptoms aggravated by nothing. Symptoms alleviated by nothing. - History of Current Complaint Chief Complaint: EDGeneral Time Seen by Provider: 01/26/18 14:20 Stated Complaint: CONSTIPATION/RECTAL PAIN Hx Obtained From: Patient Onset/Duration: Started Hours Ago, Still Present Timing: Constant Severity: Moderate Pain Intensity: 8 Location of Pain: Diffuse Associated Signs and Symptoms: Positive: Other: - constipation, pain in the chest, legs, neck, and back Aggravating Factor(s): Nothing Alleviating Factor(s): Nothing - Additional Pertinent History Primary Care Physician: [id number] - Allergy/Home Medications Allergies/Adverse Reactions: Allergies Allergy/AdvReac Type Severity Reaction Status Date / Time clozapine [From Clozaril] Allergy See Comment Verified 11/15/17 16:57 metformin Allergy Diarrhea Verified 11/15/17 16:57 NSAIDS (Non-Steroidal Allergy Bleeding Verified 11/15/17 16:57 Anti-Inflamma quetiapine Allergy Altered Verified 11/15/17 16:57 Mental Status PMH/Surg Hx/FS Hx/Imm Hx Previously Healthy: No Endocrine/Hematology History: Reports: Hx Diabetes, Other Endocrine/ Hematological Disorders - large RBCs per pt Denies: Hx Thyroid Disease, Hx Anemia Cardiovascular History: Reports: Hx Angina, Hx Hypercholesterolemia, Hx Hypertension - ON DAILY MEDS Denies: Hx Congestive Heart Failure, Hx Coronary Artery Disease, Hx Myocardial Infarction, Hx Peripheral Vascular Disease, Hx Valvular Heart Disease Respiratory History: Reports: Hx Asthma, Hx Chronic Obstructive Pulmonary Disease (COPD), Hx Pneumonia, Hx Sleep Apnea - NOT USING CPAP ANY MORE, Other Respiratory Problems/Disorders - PNEUMONIA, LAST WINTER GI History: Reports: Hx Gall Bladder Disease - removed in 1999, Hx Gastroesophageal Reflux Disease - ACID REFLUX, Hx Gastrointestinal Bleed, Hx Irritable Bowel, Other GI Disorders - hemorroids, frequent constipation Denies: Hx Jaundice, Hx Ulcer History: Reports: Other Problems/Disorders - occassional hesitation, UTI Denies: Hx Renal Disease Musculoskeletal History: Reports: Hx Arthritis - GENERAL, Hx Tendonitis - SHOULDERS, Other Musculoskeletal History - ankle fs, DDD in neck, 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 Sensory History: Reports: Hx Cataracts - removed, Hx Contacts or Glasses - reading glasses, Other Sensory Impairments - LENS IMPLANTS BILATERAL Denies: Hx Deafness, Hx Hearing Aid Opthamlomology History: Reports: Hx Cataracts - removed, Hx Contacts or Glasses - reading glasses, Other Sensory Impairments - LENS IMPLANTS BILATERAL Neurological History: Reports: Hx Developmental Delay - AUTISM, Other Neuro Impairments/Disorders - HEAD INJURY AT 4 YEARS OLD Psychiatric History: Reports: Hx Anxiety - MEDS, Hx Autism, Hx Depression, Hx Post Traumatic Stress Disorder - self reported, Hx Inpatient Treatment, Hx Bipolar Disorder, Hx Suicide Attempt, Other Psychiatric Issues/Disorders - mood disorder Denies: Hx Eating Disorder, Hx Schizophrenia, Hx of Violent Episodes Against Others - Pt does have concerns that he will become aggressive with his neighbors. - Surgical History Surgery Procedure, Year, and Place: 2003 LEFT ankle FRACTURE [place]. wisdom teeth. 1999 cholecystectomy; [place]. bilateral cataract removal Hx Anesthesia Reactions: No - Immunization History Date of Tetanus Vaccine: unknown Date of Influenza Vaccine: unknown Infectious Disease History: No Infectious Disease History: Denies: Hx Clostridium Difficile, Hx Hepatitis, Hx Human Immunodeficiency Virus (HIV), Hx of Known/Suspected MRSA, Hx Shingles, Hx Tuberculosis, Traveled Outside the [place] in Last 30 Days - Family History Known Family History: Positive: Diabetes - Social History Alcohol Use: None Alcohol Amount: RECOVERING ALCOHOLIC, 2005 Substance Use Type: Reports: None Hx Tobacco Use: Yes Smoking Status (MU): Current Every Day Smoker Type: Cigarettes Amount Used/How Often: 1/2 PPD 27 YRS Length of Time of Smoking/Using Tobacco: 30 years Have You Smoked in the Last Year: Yes Review of Systems Negative: Fever Positive: Chest Pain Positive: Other - rectal pain Positive: Myalgia All Other Systems Reviewed And Are Negative: Yes Physical Exam - Summary Physical Exam Summary: GENERAL NORMAL EXAM: VITAL SIGNS: Reviewed. GENERAL: Patient is a well-developed and nourished male who is lying comfortable in the stretcher. Patient is not in any acute respiratory distress. HEAD AND FACE: No signs of trauma. No ecchymosis, hematomas or skull depressions. No sinus tenderness. EYES: PERRLA, EOMI x 2, No injected conjunctiva, no nystagmus. EARS: Hearing grossly intact. Ear canals and tympanic membranes are within normal limits. MOUTH: Oropharynx within normal limits. NECK: Supple, trachea is midline, no adenopathy, no JVD, no carotid bruit, no c- spine tenderness, neck with full ROM. CHEST: Symmetric, no tenderness at palpation LUNGS: Clear to auscultation bilaterally. No wheezing or crackles. CVS: Regular rate and rhythm, S1 and S2 present, no murmurs or gallops appreciated. ABDOMEN: Soft, non-tender. No signs of distention. No rebound no guarding, and no masses palpated. Bowel sounds are normal. EXTREMITIES: FROM in all major joints, no edema, no cyanosis or clubbing. RECTAL: External hemorrhoid NEURO: Alert and oriented x 3. No acute neurological deficits. Speech is normal and follows commands. SKIN: Dry and warm Vital Signs On Initial Exam: Initial Vitals Temp Pulse Resp BP Pulse Ox 98.9 F 85 16 136/88 96 01/26/18 14:13 01/26/18 14:13 01/26/18 14:13 01/26/18 14:13 01/26/18 14:13 Completion Of Physical Exam Limited Due To: Dementia Diagnostics - Vital Signs Vital Signs Temp Pulse Resp BP Pulse Ox 01/26/18 14:13 98.9 F 85 16 136/88 96 - Laboratory Result Diagrams: 01/26/18 14:47 01/26/18 17:30 Lab Statement: Any lab studies that have been ordered have been reviewed, and results considered in the medical decision making process. - Radiology CXR Radiology Interpretation Completed By: Radiologist Summary of Radiographic Findings: CXR reveals, per radiologist, IMPRESSION: NO ACTIVE CARDIOPULMONARY DISEASE. ED physician has reviewed this radiology report. Abd XR Radiology Interpretation Completed By: Radiologist Summary of Radiographic Findings: Abd XR reveals, per radiologist, IMPRESSION: NONSPECIFIC BOWEL GAS PATTERN. ED physician has reviewed this radiology report. - EKG 1525 Cardiac Rate: NL EKG Rhythm: Sinus Rhythm - 76 BPM Summary of EKG Findings: no ST elevations GIGU Course/Dx - Course Assessment/Plan: This patient is a 52 year old male brought in by ambulance to [facility] with a chief complaint of rectal pain since this morning. Patient has a hx of constipation and takes stool softeners for it. Patient states he woke up with the pain and additionally cites pain in the chest, legs, neck, and back. The pain is rated 8/10 in severity. Symptoms aggravated by nothing. Symptoms alleviated by nothing. Blood work without any significant abnormality except for glucose of 223. 2 troponins 4 hours apart 0.00. Heart to score is equal to 2. Therefore, the patient is low risk for acute coronary syndrome. X-ray of the abdomen and chest negative for acute pathology. EKG shows no ST elevations. The rectal exam showed that the patient has a hemorrhoid, possibly the cause of the pain. The patient also has history of constipation and every time he goes to the bathroom he strains every time. Therefore he was recommended to continue taking the lactulose and take MiraLAX which the patient agrees. The patient will also be given a prescription for Anusol for the hemorrhoids. I discussed all the findings and test results with the patient. Patient was instructed to return to the emergency room immediately if any of the symptoms return or worsens. Plan of care was discussed with the patient and understands and agrees. All questions were answered at patient satisfaction. There were no further complaints or concerns. Lung exam before discharge: CTA B /L. Good air exchange. No wheezing or crackles heard. CVS: S1 and S2 present. No murmurs appreciated. Patient is alert and oriented x 3. Patient is hemodynamically stable. Patient will be discharged home with follow up PCP in the next 2-3 days - Diagnoses Differential Diagnoses - Male: GI Foreign Body, Hemorrhoids, Other - constipation Provider Diagnoses: Hemorrhoids, Atypical chest pain Discharge - Sign-Out/Discharge Documenting (check all that apply): Patient Departure - Discharge Plan Condition: Stable Disposition: HOME Prescriptions: Hydrocortisone SUPP* [Anusol HC Supp*] 1 rectal.tania [place] TID #[id number] supp Patient Education Materials: Chest Pain (ED), Hemorrhoids (ED), Rectal Bleeding (ED) Referrals: Chinmay Pinto MD [Primary Care Provider] - Additional Instructions: Return to the ED for any new or worsening symptoms. - Billing Disposition and Condition Condition: STABLE Disposition: Home - Attestation Statements Document Initiated by Scribe: Yes Documenting Scribe: Arielle Padilla Provider For Whom Scribe is Documenting (Include Credential): Aleksander Gaston MD Scribe Attestation: Arielle Burgos, scribed for Aleksander Gaston MD on 01/26/18 at 1853. Scribe Documentation Reviewed: Yes Provider Attestation: The documentation as recorded by the scribe, Arielle Padilla accurately reflects the service I personally performed and the decisions made by me, Aleksander Gaston MD
[2018-01-26 14:51] LABS: Urine Appearance Clear; Urine Blood Negative (Negative); Urine Color Straw; Urine Ketones Negative (Negative); Urine Protein Negative (Negative); Urine Specific Gravity 1.007 (1.010-1.030); Urine Urobilinogen Negative (Negative)
[2018-01-26 14:56] LABS: ABS Basophils 0.1 10^3/ul (0-0.2); ABS Eosinophils 0.2 10^3/ul (0-0.6); ABS Lymphocytes 2.1 10^3/ul (1.0-4.8); ABS Monocytes 0.6 10^3/ul (0-0.8); ABS Neutrophils 3.8 10^3/ul (1.5-7.7); ABS Nucleated RBC 0 10^3/ul; Eosinophil % 2.8 % (0-6); Hematocrit 46 % (42-52); Hemoglobin 16.1 g/dl (14.0-18.0); Lymphocyte % 31.1 % (25-47); Mean Corpuscular HGB Conc 35 g/dl (31-36); Mean Corpuscular Hemoglobin 35 pg (27-31); Mean Corpuscular Volume 100 fL (80-94); Mean Platelet Volume 8.6 fL (7.4-10.4); Nucleated Red Blood Cells % 0.1; Platelet Count 172 10^3/ul (150-450); Red Blood Count 4.59 10^6/ul (4.00-5.40); Red Cell Distribution Width 14 % (10.5-15); White Blood Count 6.7 10^3/ul (3.5-10.8)
[2018-01-26 15:12] LABS: EGFR Non-African American 115.6 (>60)
[2018-01-26 15:17] VITALS: BP 131/79
== END | disposition home or self-care (01) ==
LOC: ED 14:06
DX: K64.9 Unspecified hemorrhoids (principal); K59.00 Constipation, unspecified; I10 Essential (primary) hypertension; R07.89 Other chest pain; F17.210 Nicotine dependence, cigarettes, uncomplicated
CPT/HCPCS: 36415; 71045; 74019; 80053; 81003; 82272; 84484; 85025; 93005; 99283; A9270-GY

== ENCOUNTER 2018-08-05 12:40 | Emergency (ER) | payer MEDICARE, MEDICAID ==
[2018-08-05 14:09] VITALS: BP 119/84
--- NOTE | 2018-08-05 15:14 | ED ---
Adult Trauma - HPI Summary HPI Summary: Patient is a 53-year-old male presenting to the ED with lip contusion. He states last evening when he was sleepwalking he hit the right side of his face. Denies any jaw pain. Denies any neck pain. He is endorsing pain over to the right upper lip. He's been using ice with minimal relief. He denies any other pain or concerns. Denies any headache, LOC. - History of Current Complaint Chief Complaint: EDFacialInjury Stated Complaint: FALL FACIAL INJURY Time Seen by Provider: 08/05/18 12:59 Hx Obtained From: Patient Mechanism of Injury: Direct Blow Ambulatory at the Scene: No Loss of Consciousness: no loss of consciousness Force: Low Onset/Duration: Started Hours Ago Onset of Pain: Minutes Onset Severity: Mild Current Severity: Mild Pain Intensity: 8 Pain Scale Used: 0-10 Numeric Location: Other - right upper lip Character: Aching Aggravating Factor(s): Nothing Alleviating Factor(s): Nothing Associated Signs & Symptoms: Positive: Negative - Additional Pertinent History Primary Care Physician: [facility] - Allergy/Home Medications Allergies/Adverse Reactions: Allergies Allergy/AdvReac Type Severity Reaction Status Date / Time clozapine [From Clozaril] Allergy See Comment Verified 11/15/17 16:57 metformin Allergy Diarrhea Verified 11/15/17 16:57 NSAIDS (Non-Steroidal Allergy Bleeding Verified 11/15/17 16:57 Anti-Inflamma quetiapine Allergy Altered Verified 11/15/17 16:57 Mental Status PMH/Surg Hx/FS Hx/Imm Hx Previously Healthy: Yes Endocrine/Hematology History: Reports: Hx Diabetes, Other Endocrine/ Hematological Disorders - large RBCs per pt Denies: Hx Thyroid Disease, Hx Anemia Cardiovascular History: Reports: Hx Angina, Hx Hypercholesterolemia, Hx Hypertension - ON DAILY MEDS Denies: Hx Congestive Heart Failure, Hx Coronary Artery Disease, Hx Myocardial Infarction, Hx Peripheral Vascular Disease, Hx Valvular Heart Disease Respiratory History: Reports: Hx Asthma, Hx Chronic Obstructive Pulmonary Disease (COPD), Hx Pneumonia, Hx Sleep Apnea - NOT USING CPAP ANY MORE, Other Respiratory Problems/Disorders - PNEUMONIA, LAST WINTER GI History: Reports: Hx Gall Bladder Disease - removed in 1999, Hx Gastroesophageal Reflux Disease - ACID REFLUX, Hx Gastrointestinal Bleed, Hx Irritable Bowel, Other GI Disorders - hemorroids, frequent constipation Denies: Hx Jaundice, Hx Ulcer History: Reports: Other Problems/Disorders - occassional hesitation, UTI Denies: Hx Renal Disease Musculoskeletal History: Reports: Hx Arthritis - GENERAL, Hx Tendonitis - SHOULDERS, Other Musculoskeletal History - ankle fs, DDD in neck, 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 Sensory History: Reports: Hx Cataracts - removed, Hx Contacts or Glasses - reading glasses, Other Sensory Impairments - LENS IMPLANTS BILATERAL Denies: Hx Deafness, Hx Hearing Aid Opthamlomology History: Reports: Hx Cataracts - removed, Hx Contacts or Glasses - reading glasses, Other Sensory Impairments - LENS IMPLANTS BILATERAL Neurological History: Reports: Hx Developmental Delay - AUTISM, Other Neuro Impairments/Disorders - HEAD INJURY AT 4 YEARS OLD Psychiatric History: Reports: Hx Anxiety - MEDS, Hx Autism, Hx Depression, Hx Post Traumatic Stress Disorder - self reported, Hx Inpatient Treatment, Hx Bipolar Disorder, Hx Suicide Attempt, Other Psychiatric Issues/Disorders - mood disorder Denies: Hx Eating Disorder, Hx Schizophrenia, Hx of Violent Episodes Against Others - Pt does have concerns that he will become aggressive with his neighbors. - Surgical History Surgery Procedure, Year, and Place: 2003 LEFT ankle FRACTURE [place]. wisdom teeth. 1999 cholecystectomy; [place]. bilateral cataract removal Hx Anesthesia Reactions: No - Immunization History Date of Tetanus Vaccine: unknown Date of Influenza Vaccine: unknown Infectious Disease History: No Infectious Disease History: Denies: Hx Clostridium Difficile, Hx Hepatitis, Hx Human Immunodeficiency Virus (HIV), Hx of Known/Suspected MRSA, Hx Shingles, Hx Tuberculosis, Traveled Outside the in Last 30 Days - Family History Known Family History: Positive: Diabetes - Social History Occupation: Unemployed Lives: Alone Alcohol Use: None Alcohol Amount: RECOVERING ALCOHOLIC, 2005 Hx Substance Use: No Substance Use Type: Reports: None Hx Tobacco Use: Yes Smoking Status (MU): Heavy Every Day Tobacco Smoker Type: Cigarettes Amount Used/How Often: 1/2 PPD 27 YRS Length of Time of Smoking/Using Tobacco: 30 years Have You Smoked in the Last Year: Yes Review of Systems Constitutional: Negative Negative: Fever, Chills, Fatigue, Skin Diaphoresis Negative: Palpitations, Chest Pain Negative: Shortness Of Breath, Cough Negative: Arthralgia, Myalgia Positive: Other - right upper lip (inside contusion). Negative: Rash, Bruising Neurological: Negative All Other Systems Reviewed And Are Negative: Yes Physical Exam Triage Information Reviewed: Yes Vital Signs On Initial Exam: Initial Vitals Temp Pulse Resp BP Pulse Ox 97.5 F 91 17 113/75 95 08/05/18 12:45 08/05/18 12:45 08/05/18 12:45 08/05/18 12:45 08/05/18 12:45 Vital Signs Reviewed: Yes Appearance: Positive: Well-Appearing, Well-Nourished Skin: Positive: Warm, Skin Color Reflects Adequate Perfusion, Other - right upper lip contusion Head/Face: Positive: Normal Head/Face Inspection Eyes: Positive: EOMI, [place], Conjunctiva Clear Neck: Positive: Supple, No Lymphadenopathy Respiratory/Lung Sounds: Positive: Clear to Auscultation, Breath Sounds Present Cardiovascular: Positive: RRR, Pulses are Symmetrical in both Upper and Lower Extremities Musculoskeletal: Positive: Strength/ROM Intact Diagnostics - Vital Signs Vital Signs Temp Pulse Resp BP Pulse Ox 08/05/18 14:08 97.4 F 91 18 119/84 96 08/05/18 12:45 97.5 F 91 17 113/75 95 - Laboratory Lab Statement: Any lab studies that have been ordered have been reviewed, and results considered in the medical decision making process. Adult Trauma Course/Dx - Course Course Of Treatment: During the course of treatment, the patient is evaluated for left lip contusion. There is a lip contusion to the inside of the upper lip no bleeding. No swelling. Patient is able to open and close the jaw without discomfort. No difficulty swallowing or pain with swallowing. No pain to the neck bilaterally on palpation. Patient is diagnosed with lip contusion. - Diagnoses Provider Diagnoses: Contusion, lip Discharge - Sign-Out/Discharge Documenting (check all that apply): Patient Departure Patient Received Moderate/Deep Sedation with Procedure: No - Discharge Plan Condition: Stable Disposition: HOME Prescriptions: Acetaminophen TAB* [Tylenol TAB*] 650 mg PO Q6H PRN #12 tab PRN Reason: Pain Patient Education Materials: Facial Contusion (ED) Referrals: Chinmay Pinto MD [Primary Care Provider] - Additional Instructions: Tylenol 650mg three times daily x 3 days as needed for any discomfort - Billing Disposition and Condition Condition: STABLE Disposition: Home
== END 2018-08-05 14:08 | disposition home or self-care (01) ==
LOC: ED 12:40
DX: S00.531A Contusion of lip, initial encounter (principal); E11.9 Type 2 diabetes mellitus without complications; Z79.84 Long term (current) use of oral hypoglycemic drugs; E78.00 Pure hypercholesterolemia, unspecified; I10 Essential (primary) hypertension; F17.210 Nicotine dependence, cigarettes, uncomplicated; W22.8XXA Striking against or struck by other objects, initial encounter; Y93.84 Activity, sleeping; Y92.9 Unspecified place or not applicable; F51.3 Sleepwalking [somnambulism]; J44.9 Chronic obstructive pulmonary disease, unspecified; F10.21 Alcohol dependence, in remission
CPT/HCPCS: 99281

== ENCOUNTER 2018-10-12 19:37 | Inpatient (IN) | payer MEDICARE, MEDICAID ==
[2018-10-12] MEDS ORDERED: Al Hydrox/Mg Hydrox/Simet LIQ* 30 ML UDC PO ONE (20:10)
[2018-10-12] MEDS ORDERED: Acetaminophen TAB* 325 MG PO ONE (20:10)
[2018-10-12] MEDS ORDERED: LORazepam TAB(*) 1 MG PO ONE (20:10)
--- NOTE | 2018-10-12 20:10 | ED ---
Psychiatric Complaint - HPI Summary HPI Summary: A 53 y/o male presents to [facility] with a chief complaint of SI today. He says that people have been terrible to him and he wants his life to end. He also reports chest pain since yesterday. At triage he rated his pain as a 0/10 in severity. In the ED room the patient is rambling about how he had a gambling problem and he thinks that people want him to kill himself. He has a Hx of DM and takes insulin. He says that he does not "want to live like this anymore". - History Of Current Complaint Chief Complaint: EDSuicidal Time Seen by Provider: 10/12/18 20:04 Hx Obtained From: Patient Onset/Duration: Sudden Onset, Lasting Hours, Still Present Timing: Constant Severity Initially: Mild Severity Currently: Mild Character: Depressed Aggravating Factor(s): Nothing Alleviating Factor(s): Nothing Associated Signs And Symptoms: Positive: Negative Related History: Positive For: Prior Psychiatric Issues Has Suicidal: Reports: Thoughts Has Homicidal: Denies: Thoughts - Allergies/Home Medications Allergies/Adverse Reactions: Allergies Allergy/AdvReac Type Severity Reaction Status Date / Time clozapine [From Clozaril] Allergy See Comment Verified 11/15/17 16:57 metformin Allergy Diarrhea Verified 11/15/17 16:57 NSAIDS (Non-Steroidal Allergy Bleeding Verified 11/15/17 16:57 Anti-Inflamma quetiapine Allergy Altered Verified 11/15/17 16:57 Mental Status PMH/Surg Hx/FS Hx/Imm Hx Endocrine/Hematology History: Reports: Hx Diabetes, Other Endocrine/ Hematological Disorders - large RBCs per pt Denies: Hx Thyroid Disease, Hx Anemia Cardiovascular History: Reports: Hx Angina, Hx Hypercholesterolemia, Hx Hypertension - ON DAILY MEDS Denies: Hx Congestive Heart Failure, Hx Coronary Artery Disease, Hx Myocardial Infarction, Hx Peripheral Vascular Disease, Hx Valvular Heart Disease Respiratory History: Reports: Hx Asthma, Hx Chronic Obstructive Pulmonary Disease (COPD), Hx Pneumonia, Hx Sleep Apnea - NOT USING CPAP ANY MORE, Other Respiratory Problems/Disorders - PNEUMONIA, LAST WINTER GI History: Reports: Hx Gall Bladder Disease - removed in 1999, Hx Gastroesophageal Reflux Disease - ACID REFLUX, Hx Gastrointestinal Bleed, Hx Irritable Bowel, Other GI Disorders - hemorroids, frequent constipation Denies: Hx Jaundice, Hx Ulcer History: Reports: Other Problems/Disorders - occassional hesitation, UTI Denies: Hx Renal Disease Musculoskeletal History: Reports: Hx Arthritis - GENERAL, Hx Tendonitis - SHOULDERS, Other Musculoskeletal History - ankle fs, DDD in neck, 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 Sensory History: Reports: Hx Cataracts - removed, Hx Contacts or Glasses - reading glasses, Other Sensory Impairments - LENS IMPLANTS BILATERAL Denies: Hx Deafness, Hx Hearing Aid Opthamlomology History: Reports: Hx Cataracts - removed, Hx Contacts or Glasses - reading glasses, Other Sensory Impairments - LENS IMPLANTS BILATERAL Neurological History: Reports: Hx Developmental Delay - AUTISM, Other Neuro Impairments/Disorders - HEAD INJURY AT 4 YEARS OLD Psychiatric History: Reports: Hx Anxiety - MEDS, Hx Autism, Hx Depression, Hx Post Traumatic Stress Disorder - self reported, Hx Inpatient Treatment, Hx Bipolar Disorder, Hx Suicide Attempt, Other Psychiatric Issues/Disorders - mood disorder Denies: Hx Eating Disorder, Hx Schizophrenia, Hx of Violent Episodes Against Others - Pt does have concerns that he will become aggressive with his neighbors. - Surgical History Surgery Procedure, Year, and Place: 2003 LEFT ankle FRACTURE [place]. wisdom teeth. 1999 cholecystectomy; [place]. bilateral cataract removal Hx Anesthesia Reactions: No - Immunization History Date of Tetanus Vaccine: unknown Date of Influenza Vaccine: unknown Immunizations Up to Date: Yes Infectious Disease History: No Infectious Disease History: Denies: Hx Clostridium Difficile, Hx Hepatitis, Hx Human Immunodeficiency Virus (HIV), Hx of Known/Suspected MRSA, Hx Shingles, Hx Tuberculosis, Traveled Outside the in Last 30 Days - Family History Known Family History: Positive: Diabetes - Social History Alcohol Use: None Alcohol Amount: RECOVERING ALCOHOLIC, 2005 Hx Substance Use: No Substance Use Type: Reports: None Hx Tobacco Use: Yes Smoking Status (MU): Heavy Every Day Tobacco Smoker Type: Cigarettes Amount Used/How Often: 1/2 PPD 27 YRS Length of Time of Smoking/Using Tobacco: 30 years Have You Smoked in the Last Year: Yes Review of Systems Negative: Fever Positive: Chest Pain Positive: Other - positive: SI All Other Systems Reviewed And Are Negative: Yes Physical Exam - Summary Physical Exam Summary: Appearance: Well-appearing, Well-nourished, lying in bed comfortable Skin: Warm, dry, no obvious rash Eyes: sclera anicteric, no conjunctival pallor ENT: mucous membranes moist Neck: deferred Respiratory: No signs of respiratory distress Cardiovascular: Appears well perfused, pulses are nml Abdomen: deferred Musculoskeletal: Moving all 4 extremities without obvious discomfort Neurological: Awake and alert, mentation is normal, speech is pressured Psychiatric: Thought processes are somewhat tangential and he has a number of somatic complaints. No evidence of hallucinations or psychosis. He is not responding to internal stimuli. Triage Information Reviewed: Yes Vital Signs On Initial Exam: Initial Vitals Temp Pulse Resp BP Pulse Ox 99.6 F 95 15 159/101 97 10/12/18 19:40 10/12/18 19:40 10/12/18 19:40 10/12/18 19:40 10/12/18 19:40 Vital Signs Reviewed: Yes Diagnostics - Vital Signs Vital Signs Temp Pulse Resp BP Pulse Ox 10/12/18 19:40 99.6 F 95 15 159/101 97 - Laboratory Result Diagrams: 10/12/18 20:16 10/12/18 20:16 Lab Statement: Any lab studies that have been ordered have been reviewed, and results considered in the medical decision making process. - EKG 19:43 Cardiac Rate: NL - 93 bpm EKG Rhythm: Sinus Rhythm Summary of EKG Findings: EKG at 19:43 showed NSR at 93 bpm, no STEMI. Course/Dx - Course Course Of Treatment: A 53 y/o male presents to [facility] with a chief complaint of SI today. He also c/o chest pain. The physical exam revealed that his speech is pressured, thought processes are somewhat tangential and he has a number of somatic complaints. No evidence of hallucinations or psychosis. He is not responding to internal stimuli. He has a h/o many somatic complaints but with his age and diabetes history I got an EKG and troponin to make sure the chest pain was not cardiac and fortunately those are negative. He is medically clear for mental health evaluation. In the ED course the patient was given Tylenol PO , Maalox plus PO and Ativan PO. Per mental health foundation engineer, Dr. Leigh has decided that the patient will be a voluntary admit. Dx: recurrent depressive episodes with suicidal ideation - Differential Dx/Clinical Impression Provider Diagnosis: Recurrent major depressive episodes, Suicidal ideation - Physician Notifications Discussed Care Of Patient With: Abdelrahman Leigh Time Discussed With Above Provider: 02:31 Instructed by Provider To: Other - Per mental health foundation engineer, Dr. Leigh has decided that the patient will be a voluntary admit. Dx: recurrent depressive episodes with suicidal ideation Discharge - Sign-Out/Discharge Documenting (check all that apply): Patient Departure - admit Patient Received Moderate/Deep Sedation with Procedure: No - Discharge Plan Condition: Fair Disposition: [facility]IATRIC FAC[place] [place] Billing Disposition and Condition Condition: FAIR Disposition: Psychiatric Facility [facility] - Attestation Statements Document Initiated by Nancieibe: Yes Documenting Scribe: Kye Morgan Provider For Whom Scribe is Documenting (Include Credential): Olegario Castro MD Scribe Attestation: IKye, scribed for Olegario Castro MD on 10/13/18 at 0536. Scribe Documentation Reviewed: Yes Provider Attestation: The documentation as recorded by the Kye dunham accurately reflects the service I personally performed and the decisions made by me, Olegario Castro MD Status of Scribe Document: Viewed
[2018-10-12 20:27] LABS: ABS Basophils 0.1 10^3/ul (0-0.2); ABS Eosinophils 0.2 10^3/ul (0-0.6); ABS Lymphocytes 2.7 10^3/ul (1.0-4.8); ABS Monocytes 0.6 10^3/ul (0-0.8); ABS Neutrophils 3.6 10^3/ul (1.5-7.7); Eosinophil % 2.4 %; Hematocrit 46 % (42-52); Hemoglobin 16.4 g/dL (14.0-18.0); Lymphocyte % 37.8 %; Mean Corpuscular HGB Conc 36 g/dL (31-36); Mean Corpuscular Hemoglobin 36 pg (27-31); Mean Corpuscular Volume 100 fL (80-94); Mean Platelet Volume 8.4 fL (7.4-10.4); Platelet Count 145 10^3/uL (150-450); Red Cell Distribution Width 14 % (10-15); White Blood Count 7.2 10^3/uL (3.5-10.8)
[2018-10-12 20:44] LABS: Urine Appearance Clear; Urine Bilirubin Negative (Negative); Urine Blood Negative (Negative); Urine Color Yellow; Urine Glucose 3+(>=500 mg/dL) (Negative); Urine Ketones Negative (Negative); Urine Nitrite Negative (Negative); Urine Protein Negative (Negative); Urine Specific Gravity 1.018 (1.010-1.030); Urine Urobilinogen Negative (Negative)
[2018-10-12 20:52] LABS: ALT 25 U/L (7-52); Albumin 4.3 g/dL (3.2-5.2); Albumin/Globulin Ratio 1.6 (1-3); Alkaline Phosphatase 70 U/L (34-104); Blood Urea Nitrogen 17 mg/dL (6-24); CO2 Carbon Dioxide 25 mmol/L (22-32); Calcium 9.4 mg/dL (8.6-10.3); Chloride 97 mmol/L (101-111); EGFR African American 148.8 (>60); EGFR Non-African American 122.9 (>60); Globulin 2.7 g/dL (2-4); Glucose 232 mg/dL (70-100); Sodium 132 mmol/L (135-145)
[2018-10-12 20:54] LABS: AST 22 U/L (13-39); Anion Gap 10 mmol/L (2-11); Potassium 3.8 mmol/L (3.5-5.0)
[2018-10-12 20:56] LABS: Urine Benzodiazepine Screen None Detected (None Detect); Urine Opiates Screen None Detected (None Detect)
[2018-10-12 21:07] LABS: Acetaminophen < 15 mcg/mL; Alcohol < 10 mg/dL (<10); Salicylate < 2.50 mg/dL (<30)
[2018-10-12 21:24] LABS: TSH (Thyroid Stimulating Horm) 0.65 mcIU/mL (0.34-5.60)
--- OUTSIDE RECORDS SUMMARY | 2018-10-12 21:27 | XMS REPORT | Continuity of Care Document ---
:1965 External Reference #:[id number] Author Name Nnamdi Newberry M.D. Address [address] [address] Care Team Providers Name Role Phone Chinmay Pinto MD Care Team Information Press Breaker Unavailable Law JARAMILLO, Chinmay Primary Care Physician Unavailable Payers Date Identification Numbers Payment Provider Subscriber Policy Number: [id number] Medicare [facility] Gurvinder Collins PayID: [id number] [address] [place] [address] Effective: 2013 Policy Number: [id number] Medicaid [place] Gurvinder Collins PayID: [id number] [address] [place] [address] Problems Active Problems Provider Date Other secondary cataract, left eye Nnamdi Newberry M.D. Onset: 11/26/2015 Other secondary cataract, right eye Nnamdi Newberry M.D. Onset: 11/26/2015 Status Post Surgery Nnamdi Newberry M.D. Onset: 03/03/2014 Lens Replaced By Other Means Johan Shaw O.D. Onset: 01/26/2014 Posterior subcapsular polar senile cataract Johan Shaw O.D. Onset: 01/26 Type 2 diabetes mellitus Johan Shaw O.D. Onset: 01/26/2014 Chronic allergic conjunctivitis Johan Shaw O.D. Onset: 11/20/2013 Tear film insufficiency Johan Shaw O.D. Onset: 11/20/2013 Family History Date Family Member(s) Observation Comments General Diabetes Father Noncontributory Mother Noncontributory Social History Type Date Description Comments Sex Unknown ETOH Use Has consumed alcohol in the past Tobacco Use Start: Unknown Patient is a current smoker, smokes every day Smoking Status Reviewed: 09/27/18 Patient is a current smoker, smokes every day Allergies, Adverse Reactions, Alerts Active Allergies Reaction Severity Comments Date Seasonal 11/14/2013 Seroquel 11/14/2013 Aspirin 11/14/2013 Ibuprofen 11/14/2013 Clozaril 11/14/2013 Metformin 11/14/2013 Quetiapine 11/14/2013 Medications Active Medications SIG Qnty Indications Ordering Provider Date Fluoxetine HCL Unknown 10mg Capsules Fluticasone Propionate Unknown 50mcg/Act Suspension Triamcinolone Acetonide Unknown 0.1% Cream Flovent HFA Unknown 220mcg/Act Aerosol Byetta 5 mcg Pen Unknown 5mcg/0.02ML Solution Pen-Inject Nystatin-Triamcinolone Unknown 325467-1.1Unit/GM-% Cream Byetta 10 mcg Pen Unknown 10mcg/0.04ML Solution Pen-Inject Hydrocodone-Acetaminophen Unknown 5-325mg Tablets Victoza Unknown 18mg/3ML Solution Pen-Inject Nystatin Unknown 458931Jqqv/GM Cream Fluconazole Unknown 150mg Tablets Lovaza 1gm Unknown Capsules Diphenhydramine HCL Unknown 25mg Capsules Docqlace 100mg Unknown Capsules Ketoconazole 2% Unknown Cream Fenofibrate Unknown 145mg Tablets Fluoxetine HCL Unknown 40mg Capsules Prazosin HCL Unknown 2mg Capsules Mapap 325mg Unknown Tablets Latuda 60mg Unknown Tablets Hydroxyzine HCL Unknown 50mg Tablets Doxepin HCL Unknown 100mg Capsules Humalog Mix 75/25 Kwikpen Unknown (75-25)100Unit/ML Supn Ranitidine HCL Unknown 150mg Tablets Lisinopril 5mg Unknown Tablets Combivent Respimat Unknown 20-100mcg/Act Aerosol History Medications Pred Forte 1 drop right 10ml Nnamdi Newberry, 03/17/2014 - 1% Suspension eye twice a day M.D. 03/31/2014 for 1 week, then 1 drop right eye for 1 week Vigamox 1 drop drops 1units Nnamdi Newberry, 02/16/2014 - 0.5% Solution right eye four M.D. 03/09/2014 times a day Ketorolac Tromethamine 1 drops right 10ml Nnamdi Newberry, 02/16/2014 - eye twice a day M.D. 03/31/2014 0.5% Solution Pred Forte 1 drops right 10ml Nnamdi Newberry, 02/16/2014 - 1% Suspension eye four times M.D. 03/31/2014 a day Latuda Unknown - 40mg Tablets 11/26/2015 Latuda Unknown - 20mg Tablets 11/26/2015 Vital Signs Date Vital Result Comment 09/27/2018 10:46am Intraocular Pressure Right Eye 16 mmHg Intraocular Pressure Left Eye 16 mmHg 11/26/2015 2:35pm Intraocular Pressure Right Eye 16 mmHg Intraocular Pressure Left Eye 17 mmHg 03/31/2014 3:21pm Intraocular Pressure Right Eye 16 mmHg Intraocular Pressure Left Eye 16 mmHg 03/09/2014 1:18pm Intraocular Pressure Right Eye 18 mmHg 03/03/2014 8:27am Intraocular Pressure Right Eye 17 mmHg 01/26/2014 8:54am Intraocular Pressure Right Eye 16 mmHg Intraocular Pressure Left Eye 16 mmHg Procedures Date Code Description Status 09/27/2018 65201 Ophthalmoscopy Subsequent Completed 09/27/2018 09960 Eye Exam Est Comprehensive Completed 01/17/2016 28516 Remove Secondary Cataract, Laser (Yag) Completed 01/10/2016 95885 Remove Secondary Cataract, Laser (Yag) Completed 11/26/2015 64083 Ophthalmoscopy Subsequent Completed 11/26/2015 40728 Eye Exam Est Intermediate Completed 03/02/2014 02048 Extracapsular Cataract Extraction W/Intraocular Lens Completed 02/09/2014 37288 Ophthalmic Biometry By Partial Coherence Interferometry Completed W/Intra 02/09/2014 94834 Eye Exam Est Intermediate Completed 01/26/2014 06645 Eye Exam Est Comprehensive Completed 11/20/2013 23545 Eye Exam Est Intermediate Completed Plan of Treatment 09/27/2018 - Nnamdi Newberry M.D.E11.9 Type 2 diabetes mellitus without urrboyauhdvvtE52.1 Presence of intraocular lensH53.021 Refractive amblyopia, right eyeFollow up:1 yr
[2018-10-13] MEDS ORDERED: Al Hydrox/Mg Hydrox/Simet LIQ* 30 ML UDC PO PRN (02:04)
[2018-10-13] MEDS: hydrOXYzine HCL TAB* 50 MG PO PRN ×3 (08:40→20:10)
[2018-10-13] MEDS: Vitamin THERAPEUTIC TAB PO SCH (08:40)
[2018-10-13] MEDS ORDERED: Polyethylene Glycol 3350* 17 GM PACKET PO PRN (12:33)
[2018-10-13] MEDS ORDERED: Dextrose 50% VIAL 50 ml IV PUSH PRN (12:38)
[2018-10-13] MEDS ORDERED: PTO: Albuterol/Ipratropium RESP(NF) MDI (Combivent Respimat) INH SCH (13:00)
[2018-10-13] MEDS: Nicotine* 2MG (FRUIT FLAVOR) GUM PO PRN ×2 (13:51→18:10)
[2018-10-13] MEDS: Nicotine PATCH 7 MG/24 HR* PATCH TRANSDERM SCH (13:52)
[2018-10-13] MEDS ORDERED: Spiriva Inhaler DEVICE* 1 EACH DEVICE INH ONE (14:00)
[2018-10-13] MEDS ORDERED: diPHENhydraMINE PO* 25 MG PO PRN (14:14)
[2018-10-13] MEDS ORDERED: hydrOXYzine HCL TAB* 25 MG PO PRN (14:15)
[2018-10-13] MEDS: Insulin LISPRO* 1 UNITS UNIT SUBCUT SCH ×2 (16:57→20:26)
[2018-10-13] MEDS: Albuterol HFA INHALER* 8 gm MDI INH SCH ×2 (18:09→22:39)
[2018-10-13] MEDS: Acetaminophen TAB* 325 MG PO PRN (18:09)
[2018-10-13] MEDS: Insulin ISOPH/REG 70/30 (*) 1 UNITS UNIT SUBCUT SCH (19:50)
[2018-10-13] MEDS: Gabapentin CAP(*) 300 MG PO SCH ×2 (19:56→20:12)
[2018-10-13] MEDS: Docusate CAP* 100 MG PO SCH (20:11)
[2018-10-13] MEDS: Prazosin CAP* 1 MG PO SCH (20:16)
[2018-10-13] MEDS: DOXEPIN HCL 150 MG PO SCH (21:24)
[2018-10-13] MEDS: Nicotine Patch Removal NOTE PATCH OFF SCH (22:39)
[2018-10-13] MEDS: Tiotropium CAP.INH* CAP.INH/18 MCG (USE ORDER SET !) INH SCH (23:05)
--- NOTE | 2018-10-13 23:13 | HP ---
HISTORY AND PHYSICAL: DATE OF ADMISSION: 10/13/18 IDENTIFYING DATA: Gurvinder is a 53-year-old single male, a resident of [facility], who took the bus to the emergency room yesterday evening to request voluntary admission because of suicidal and homicidal ideation and inability to contract for safety. CHIEF COMPLAINT: "I am demoralized by another resident who is constantly nazi ranting!" HISTORY OF PRESENT ILLNESS: Gurvinder is known to the adult inpatient psychiatric unit from previous admissions. He has diagnosis of autism spectrum disorder, depression, and anxiety and he sees psychiatrist Dr. Barrett and Deniz Solitario RN at [facility]. He relates that he has been increasingly dissatisfied with living conditions at [facility]. He reports that he is harassed by another resident who is constantly asking him for cigarettes and complaining about race issues. Additionally, he asserts that the staff is abusive, unresponsive, incompetent and that he himself does not like to be around mentally ill people. He complains about his sexual dysfunction and the side effects of taking testosterone which includes weight gain. He endorses several weeks' of worsening symptoms of sad, irritable mood, decreased interest , self-isolating, passive wish, homicidal ideation, but no intent or plan , daytime tiredness that he attributes mostly to his sleep apnea, impaired attention and concentration and feelings of hopelessness, helplessness and worthlessness. REVIEW OF PSYCHIATRIC SYMPTOMS: He denies symptoms of martha. He voices paranoid and persecutory delusions that residents and staff at [facility] are targeting him. He endorses worrying excessively, feeling irritable, tense and having recurrent headaches. He denies panic attacks, obsessive thoughts or compulsives rituals. He denies previous diagnosis of eating disorder. PAST PSYCHIATRIC HISTORY: This is about his 4th lifetime inpatient psychiatric admission. He had two previous inpatient admission about 11 to 12 years ago and his most recent admission was here in November of 2017. He has outpatient care at [facility] with Dr. Sang Barrett and with Deniz Solitario RN. He denies history of previous suicide attempts or self- injurious behavior or violent behavior, but notes indicates that he has a history of aggressive behavior when in decompensated states. PAST MEDICAL HISTORY: Remarkable for type 2 diabetes, anemia, angina, hypercholesterolemia, hypertension, erectile dysfunction, low testosterone level , obstructive sleep apnea, COPD, asthma. He is followed by Dr. Chinmay Pinto. MEDICATION HISTORY: He has had past trials of Latuda, clozapine, and quetiapine. They were all discontinued because they were worsening his diabetes. CURRENT MEDICATIONS: He came in for this admission on; 1. Doxepin 150 mg at bedtime. 2. Venlafaxine ER 225 mg daily. 3. Gabapentin 300 mg p.o. t.i.d. 4. Hydroxyzine 50 mg q.6 p.r.n. for anxiety. 5. Prazosin 4 mg at bedtime. 6. Albuterol inhaler 2 puffs INH q,6 p.r.n. for shortness of breath. 7. Aspirin 81 mg daily. 8. Lipitor 10 mg daily. 9. Cyclobenzaprine 10 mg p.o. daily p.r.n. for muscle spasm. 10. Benadryl 25 mg p.o. t.i.d. p.r.n. for allergies. 11. Docusate sodium 100 mg b.i.d. for constipation. 12. Jardiance 25 mg p.o. daily. 13. Flonase nasal spray once spray both nares daily. 14. Asmanex 2 puffs INH daily. 16. Spiriva 1 capsule daily. 2. Lisinopril 5 mg p.o. daily. Since admission the Hospitalist Service has added: Humulin 70/30 48 units subcutaneous at 5 p.m.; Humulin 70/30 52 units subcutaneously at 8 a.m.. and Humalog 0 unit subcutaneous a.c. and h.s. FAMILY HISTORY: Positive family history of depression in his biological mother. History of alcohol abuse and ADHD in relatives on both sides. PERSONAL AND SOCIAL HISTORY: He was born in [place], [place] from parents who have since . He has 2 older brothers, both locomotive firer/fireman. His mother lives somewhere in [place] and he is unaware of his father whereabouts. He reports not having close contacts with his relatives. He graduated from high school. He did not attend college. 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 He identifies as being homosexual. He reports "liking young males," but denies sexual activity in the past 19 years. He does admit to difficulty masturbating because of low testosterone and side effects of psychotropic medications that he is taking. REVIEW OF MEDICAL SYMPTOMS: Obesity. PHYSICAL EXAMINATION GENERAL: He is a moderately obese 53-year-old white male who does not appear to be in any acute physical distress. He is alert and oriented x3. ADMISSION VITAL SIGNS: Blood pressure is 150/90, pulse is 95, respirations 17, temperature 99.2. HEENT: Head is atraumatic, normocephalic, symmetrical. Eyes: PERRLA. Tympanic membranes intact. Sclerae nonicteric. Conjunctivae clear. NECK: Trachea midline, freely mobile. No cervical lymphadenopathy. No nuchal rigidity. LUNGS: Clear to auscultation bilaterally. HEART: Regular rate and rhythm. S1, S2. No murmurs, gallops or rubs. BREAST EXAM: No mass or discharge. ABDOMEN: Soft, nontender. No masses, organomegaly or rebound tenderness. Active bowel sounds in all 4 quadrants. EXTREMITIES: No clubbing, cyanosis, edema, or varicosities noted. Pulses are equal and adequate in all 4 extremities. NEUROLOGIC: Cranial nerves II through XII are intact. Cerebellar function intact. Muscle strength grade 5/5 in all 4 extremities. GENITAL EXAM: Not performed. RECTAL EXAM: Not performed. SKIN: Skin texture, turgor, and pigmentation are within normal limits. STRUCTURAL EXAM: The patient was examined in both supine and upright positions. No gross AP or lateral asymmetry. Gait and movement are within normal limits. SUBSTANCE ABUSE HISTORY: The patient reports smoking one pack of cigarettes per day and he has been a smoker since age 21. He also smokes cigars on occasions. He has a past history of alcohol and opioid analgesics dependence, but has been sober and drug-free for over 10 years and he regularly attends AA and NA meetings. MENTAL STATUS EXAMINATION: Finds a moderately obese 53-year-old white male with short blonde hair. He is poorly groomed, unshaven, dressed in hospital scrubs. He presents as cooperative. He makes fair eye contact. His speech has a pressured quality, but it is understandable. His affect is sad. Mood is dysphoric. Thoughts are linear and goal directed. He denies auditory or visual hallucinations. He avidly denies suicidal or homicidal ideation and he contracts for safety. His insight and judgment are limited. Impulse control is good in this setting. He is alert. He is oriented to time, place and person. Attention, memory, and concentration appear all fair. Fund of knowledge is adequate. Intelligence is estimated to be in the borderline range. SUMMARY: A 53-year-old male with history of previous hospitalizations, previous diagnosis of depression, anxiety, autism spectrum disorder, previous addiction to opioid analgesics and alcohol, currently in sustained recovery, current outpatient psychiatric treatment at [facility] , who was self- referred because of suicidal and homicidal ideation and inability to contract for safety and he was admitted voluntarily. Medical history is remarkable for erectile dysfunction, COPD, asthma, obstructive sleep apnea, hypertension, hypercholesterolemia, and diabetes. He reports family history of depression, alcoholism and ADHD in the relatives, but no completed suicides. He described stressors of dissatisfaction with his living conditions at [facility], longing for a relationship, feeling socially isolated at times and not liking to be around mentally ill people. DIAGNOSTIC IMPRESSIONS: 1. Major depressive disorder, recurrent, moderate, with psychotic features. 2. Generalized anxiety disorder. 3. Autism spectrum disorder, by history. 4. Alcohol, opioid analgesics dependence, in sustained remission. 5. Nicotine dependence. TREATMENT PLAN: Admit to mental health unit, 15 minutes check, full code status , legal status is voluntary. Initiate comprehensive milieu, individual and group psychotherapeutic support. Medication management, we will continue his outpatient regimen of medications until we can contact his outpatient psychiatrist. He will be encouraged to attend [facility] programming while admitted. Discharge planning will involve coordination of his aftercare with [facility] and with [facility]. [id number]/[facility] #: [id number] DONNY
[2018-10-14] MEDS: Nicotine* 2MG (FRUIT FLAVOR) GUM PO PRN ×3 (04:15→20:19)
[2018-10-14] MEDS: Insulin LISPRO* 1 UNITS UNIT SUBCUT SCH ×4 (07:36→20:11)
[2018-10-14] MEDS: Acetaminophen TAB* 325 MG PO PRN ×2 (07:38→14:16)
[2018-10-14] MEDS: hydrOXYzine HCL TAB* 50 MG PO PRN ×3 (07:38→20:11)
[2018-10-14 07:43] LABS: HDL Cholesterol 34.2 mg/dL
[2018-10-14] MEDS: Albuterol HFA INHALER* 8 gm MDI INH SCH ×4 (08:27→20:14)
[2018-10-14] MEDS: Fluticasone NASAL SPRAY 50MCG* 16 gm SPRAY BTL BOTH NARES SCH (08:27)
[2018-10-14] MEDS: Mometasone 220 MCG MDI INH SCH (08:27)
[2018-10-14] MEDS: Insulin ISOPH/REG 70/30 (*) 1 UNITS UNIT SUBCUT SCH ×2 (08:33→17:27)
[2018-10-14] MEDS: Venlafaxine EXT RELEASE CAP* 75 MG PO SCH (08:38)
[2018-10-14] MEDS: Vitamin THERAPEUTIC TAB PO SCH (08:38)
[2018-10-14] MEDS: Lisinopril TAB* 5 MG PO SCH (08:38)
[2018-10-14] MEDS: Nicotine PATCH 7 MG/24 HR* PATCH TRANSDERM SCH (08:39)
[2018-10-14] MEDS: Aspirin EC TAB* 81 MG TAB.EC PO SCH (08:39)
[2018-10-14] MEDS: Docusate CAP* 100 MG PO SCH ×2 (08:39→20:05)
[2018-10-14] MEDS: Atorvastatin* 10 MG TAB PO SCH (08:39)
[2018-10-14] MEDS: Tiotropium CAP.INH* CAP.INH/18 MCG (USE ORDER SET !) INH SCH (08:40)
[2018-10-14] MEDS: EMPAGLIFOZIN 25 MG PO SCH (08:42)
[2018-10-14] MEDS: Gabapentin CAP(*) 300 MG PO SCH ×4 (08:44→20:05)
[2018-10-14] MEDS ORDERED: Venlafaxine ER (NF) 150 MG CAP.ER PO SCH (09:00)
[2018-10-14] MEDS: Cyclobenzaprine TAB* 10 MG PO PRN (14:16)
[2018-10-14] MEDS ORDERED: Pantoprazole TAB * 40 MG TAB PO ONE (14:56)
--- NOTE | 2018-10-14 15:00 | PN ---
Subjective - Subjective Date of Service: 10/14/18 Service Type: 55834 Hosp care 25 min moderate complexity Subjective: Gurvinder states he's here because of his living situation. He has lived at the [facility] for 11 years and it has rarely been a sufficient situation for Gurvinder. He has complaints about his neighbor, his staff being burned out, the director not being suitable, not having his own place, disruptions that keep him from getting a job. He states he is going to his AA meetings and is working on his recovery. Nevertheless, Gurvinder is in a difficult position as he seems unable to effect change on his own. Gurvinder also stated he was having chest pain. That was followed up by the hospitalist service. Objective - General Observations Appearance: Disheveled, Malodorous Appears Stated Age: Yes Stature: Overweight Posture: WNL Eye Contact: Avoidant Behavior/Activity: WNL - Interaction Observations Attitude Towards Examiner: Cooperative, Anxious, Defensive Stated Mood: Dysphoric Affect: Blunted Speech Pattern/Tone: Clear, Rambling, Pressured Thought Process: Coherent, Goal Directed, Circumstantial Perception: WNL Thought Content: Preoccupation/Ruminations, Obsessional Thought Process: Lethality: Suicidal Planning Hallucination Type: None Delusion Type: None - Cognitive Function Orientation: A&O x 4 Level of Consciousness: Awake, Alert, Appropriate Cognition: Impaired Attention/Concentration, Impaired Ability to Abstract Estimated Intelligence: Borderline Range Insight: Mostly Blames Others for Problems Judgment Within Normal Limits: No Ability to Make Reasonable Decisions: Moderately Impaired - Medication Compliance Cooperative with Inpatient Medication Regimen: Yes - Group Participation Participates in Group Activities: Partial Assessment - Assessment Merits Inpatient Hospitalization: For Immediate Safety Clinical Impression: Gurvinder is a 53-year-old white male who is diagnosed historically with schizoaffective disorder but more adequately fits the diagnoses of autism and depression. He came to the hospital with suicidal ideation that stems from his dissatisfaction with his living situation and inability to cope with it. Plan - Plan Treatment Plan: Name: GURVINDER BRYANT Birthdate: 1965 [id number] 10/14/18 Gurvinder will remain on medication prescribed in outpatient. He will have a respite from the [facility] while he is here and then be sent back home. Continued Medication Management: Continue Outpt Medication Medications: Current Medications Acetaminophen (Tylenol Tab*) 650 mg PO Q6HR PRN PRN Reason: PAIN Last Admin: 10/14/18 14:16 Dose: 650 mg Al Hydrox/Mg Hydrox/Simethicone (Maalox Plus*) 30 ml PO Q4H PRN PRN Reason: INDIGESTION Albuterol (Ventolin Hfa Inhaler*) 2 puff INH QID [facility] Last Admin: 10/14/18 13:17 Dose: 2 puff Aspirin (Aspirin Ec Tab*) 81 mg PO DAILY [facility] Last Admin: 10/14/18 08:39 Dose: 81 mg Atorvastatin Calcium (Lipitor*) 10 mg PO DAILY [facility]; Protocol Last Admin: 10/14/18 08:39 Dose: 10 mg Cyclobenzaprine HCl (Flexeril Tab*) 10 mg PO DAILY PRN PRN Reason: MUSCLE SPASMS Last Admin: 10/14/18 14:16 Dose: 10 mg Diphenhydramine HCl (Benadryl Po*) 25 mg PO TID PRN PRN Reason: Allergy Symptoms Docusate Sodium (Colace Cap*) 100 mg PO BID [facility] Last Admin: 10/14/18 08:39 Dose: 100 mg Empagliflozin (Jardiance) 25 mg PO DAILY [facility] Last Admin: 10/14/18 08:42 Dose: Not Given Fluticasone Propionate (Flonase Nasal [place] 50mcg*) 1 spray BOTH NARES DAILY [facility] Last Admin: 10/14/18 08:27 Dose: 1 spray Gabapentin (Neurontin Cap(*)) 300 mg PO TID@0900,1300,1700 [facility] Last Admin: 10/14/18 13:18 Dose: 300 mg Gabapentin (Neurontin Cap(*)) 600 mg PO BEDTIME [facility] Last Admin: 10/13/18 20:12 Dose: 600 mg Hydroxyzine HCl (Atarax Tab*) 50 mg PO Q6H PRN PRN Reason: ANXIETY Last Admin: 10/14/18 14:17 Dose: 50 mg Insulin Human Isoph/Insulin Regular (Humulin 70/30 (*)) 52 units SUBCUT 0800 [facility] Last Admin: 10/14/18 08:33 Dose: 52 units Insulin Human Isoph/Insulin Regular (Humulin 70/30 (*)) 48 units SUBCUT 1700 [facility] Last Admin: 10/13/18 19:50 Dose: 48 units Insulin Human Lispro (Humalog*) 0 units SUBCUT ACHS [facility]; Protocol Last Admin: 10/14/18 13:50 Dose: 6 units Lisinopril (Prinivil Tab*) 5 mg PO QAM [facility] Last Admin: 10/14/18 08:38 Dose: 5 mg Mometasone Furoate (Asmanex 220 Mcg Mdi *) 2 puff INH DAILY [facility] Last Admin: 10/14/18 08:27 Dose: 2 puff Multivitamins (Theragran Tab*) 1 tab PO DAILY [facility] Last Admin: 10/14/18 08:38 Dose: 1 tab Nicotine (Nicotine Patch 7 Mg/24 Hr*) 1 patch TRANSDERM DAILY [facility] Last Admin: 10/14/18 08:39 Dose: Not Given Nicotine Polacrilex (Nicotine Gum*) 2 mg PO Q2H PRN PRN Reason: CRAVINGS Last Admin: 10/14/18 14:17 Dose: 2 mg Pto: Doxepin Hcl [ (Doxepin Hcl] 150 Mg) 150 mg PO BEDTIME [facility] Last Admin: 10/13/18 21:24 Dose: Not Given Pharmacy Profile Note (Nicotine Patch Removal Note*) 1 note PATCH OFF 2100 [facility] Last Admin: 10/13/18 22:39 Dose: Not Given Polyethylene Glycol/Electrolytes (Miralax*) 17 gm PO DAILY PRN PRN Reason: CONSTIPATION Prazosin HCl (Minipress Cap*) 4 mg PO BEDTIME [facility] Last Admin: 10/13/18 20:16 Dose: 4 mg Tiotropium [place] (Spiriva Cap.Inh*) 1 cap INH DAILY [facility] Last Admin: 10/14/18 08:40 Dose: 1 cap Venlafaxine HCl (Effexor Xr Cap*) 225 mg PO DAILY [facility] Last Admin: 10/14/18 08:38 Dose: 225 mg - Discharge Plan Discharge Plan: Outpatient Follow Up Outpatient Program: [facility]
[2018-10-14] MEDS ORDERED: Aspirin 81 mg CHEW TAB* 81 MG TAB.CHEW PO ONE (15:15)
[2018-10-14] MEDS ORDERED: Albuterol/Ipratropium NEB.SOL* Albuterol 2.5 MG/Ipratropium 0.5 MG 3 ML INH PRN (17:02)
--- NOTE | 2018-10-14 17:32 | CONS ---
CONSULTATION REPORT: DATE OF CONSULT: 10/14/18 REQUESTING PHYSICIAN IN CONSULTATION: Dr. Leigh. ATTENDING PHYSICIAN: Dr. Peggy Patel (dictated by NIDIA Liz). REASON FOR CONSULT: Chest pain. HISTORY OF PRESENT ILLNESS/HOSPITAL COURSE: I refer you to Dr. Leigh's history and physical dictated 10/13/18 for full and complete details, but in short, Mr. Collins is a 53-year-old male who presented to the ER on 10/13/18 for voluntary admission due to suicidal and homicidal ideations. He has a past medical history of diabetes mellitus type 2, insulin-dependent; hyperlipidemia; hypertension; obstructive sleep apnea; obesity who complained of chest pain after eating lunch today. He describes the pain as a dull sensation in the chest that radiates to the head, neck, and left arm. He describes it as a "jittery" feeling, uncomfortable, and shaky. He states that it started after lunch. He also complains of abdominal pain. He notes that the pain is relieved with lying down and is sometimes worsened with walking, talking, sitting, or stress. He rates the pain as a 7/10 and states that it is intermittent and goes away with relaxation. He also notes a cough times approximately 3 weeks as well as chills. He notes that these have increased since quitting smoking. He denies shortness of breath, diaphoresis, nausea, vomiting. He states he has a headache. He does complain of some abdominal pain , but denies diarrhea. He denies numbness and tingling in the extremities. The hospitalist team was asked to consult due to this chest pain. PAST MEDICAL HISTORY: 1. Diabetes mellitus type 2. 2. Hypertension. 3. Hyperlipidemia. 4. COPD. 5. Obstructive sleep apnea. 6. GERD. 7. Tobacco abuse. 8. Borderline personality disorder. 9. Obesity. CURRENT MEDICATIONS: 1. Acetaminophen 650 mg p.o. q.6 hours p.r.n. 2. Maalox 30 mL p.o. q.4 hours p.r.n. 3. Albuterol 2 puffs inhalation 4 times daily scheduled. 4. Aspirin 81 mg p.o. daily. 5. Atorvastatin 10 mg p.o. daily. 6. Cyclobenzaprine 10 mg p.o. daily p.r.n. 7. Diphenhydramine 25 mg p.o. t.i.d. p.r.n. 8. Docusate sodium 100 mg p.o. b.i.d. scheduled. 9. Empagliflozin 25 mg p.o. daily scheduled. 10. Fluticasone 1 spray to both nares daily scheduled. 11. Gabapentin 300 mg p.o. t.i.d., 600 mg p.o. at bedtime. 12. Hydroxyzine 50 mg p.o. q.6 hours p.r.n. for anxiety. 13. Humulin 70/30, 52 units subcu at 0800, 48 units subcu at 1700. 14. Insulin lispro sliding scale. 15. Lisinopril 5 mg p.o. q.a.m. 16. Mometasone furoate 2 puffs inhalation daily. 17. Multivitamin 1 tab p.o. daily. 18. Nicotine 1 patch transdermal daily. 19. Nicotine gum 2 mg p.o. q.2 hours p.r.n. 20. MiraLAX 17 g p.o. daily p.r.n. 21. Prazosin 4 mg p.o. at bedtime. 22. Doxepin 150 mg p.o. at bedtime. 23. Tiotropium bromide 1 cap inhalation daily. 24. Venlafaxine 225 mg p.o. daily. DRUG ALLERGIES: ASPIRIN, bleeding; CLOZAPINE, hyperglycemia; NSAIDS, bleeding; QUETIAPINE, altered mental status. FAMILY HISTORY: Mother had hypertension. Father had "chest issues" and the patient is unable to be more specific. SOCIAL HISTORY: The patient states that he previously smoked approximately 2 packs per day. He denies alcohol use. He denies use of illicit drugs. He lives alone. In the event that he is unable to make his own medical decisions, he has appointed his mother, Deloris Almonte, to be his surrogate decision maker. REVIEW OF SYSTEMS: A 10-point review of systems has been performed and all the pertinent positives and negatives are in the HPI. All other systems are negative. PHYSICAL EXAM: Vital Signs: Temperature 98.9 temporal, heart rate 98, respiratory rate 16, oxygen saturation 97% on room air, blood pressure 144/86. General: Mr. Collins is a well-developed, well-nourished, obese, middle-aged male who is lying flat in bed. He is breathing normally. He appears to be in no acute distress. He is non-diaphoretic. HEENT: Normocephalic, atraumatic. PERRL. EOMI. Nonicteric sclerae. Hearing grossly intact. Oral mucous membranes are moist. There are no lesions. Pharynx is clear. Cardiovascular: Regular rate and rhythm with S1, S2 present without audible murmurs, rubs, clicks, or gallops. There is no JVD. The radial and pedal pulses are palpable. There is no peripheral edema. Pulmonary: Symmetrical chest expansion without use of accessory muscles. There are rhonchi and wheezes throughout bilateral lung melendez. There is no clubbing or cyanosis. Abdomen: Obese. Bowel sounds noted in all quadrants. The abdomen is soft. There is some tenderness to palpation throughout the abdomen. There is no hepatosplenomegaly. Musculoskeletal: Full range of motion without pain or deformities. Neuro: The patient is awake. He is alert and oriented x3. Cranial nerves are grossly intact. Skin: Warm and smooth bilaterally. DIAGNOSTIC STUDIES/LAB DATA: Chest x-ray: No active cardiopulmonary disease. ECG: Rate 75. No ST changes. Normal sinus rhythm. CBC without gross abnormality. Triglycerides 1186, cholesterol 234, LDL direct 66, HDL 34.2. Troponin 0.00 x1. ASSESSMENT AND PLAN: Mr. Collins is a 53-year-old male with a past medical history of hypertension, hyperlipidemia, diabetes, obstructive sleep apnea, obesity who is admitted to [facility] 1 day ago due to suicidal and homicidal ideations. The hospitalist team was consulted due to sudden-onset chest pain that radiates to the left arm. The patient was found to have an ECG which was within normal limits, troponin negative x1. The patient will be admitted inpatient for: 1. Suicidal ideation. Management per [facility]. 2. Chest pain. The patient has pain in the chest that he has had since approximately lunchtime. He notes that the pain radiates to the left arm and the neck and head area. He states that it is intermittent and decreased significantly with relaxation. EKG was ordered and showed no ST changes or arrhythmia. Troponin was negative x1. The patient was administered 325 mg of aspirin. He notes that he takes 81 mg of aspirin daily and lists this as an allergy due to history of gastrointestinal bleed in the distant past. We will continue to trend troponins x3. We will get a repeat ECG in the morning. Hemoglobin A1c, TSH, and lipid panel have been ordered. It appears that the patient's LDL cholesterol is within normal limits, but he has elevated triglycerides. He will be placed on fenofibrate for this. At this time, it does not appear that the patient needs an echocardiogram. The patient would benefit from an outpatient stress test due to risk factors of hypertension, diabetes mellitus, hyperlipidemia. 3. Code status: Full code. 4. DVT prophylaxis: Per [facility]. TIME SPENT: Approximately 40 minutes were spent on this consultation, greater than half that time was spent with the patient obtaining history, performing physical, and reviewing the plan of care. The case has been reviewed with my attending, Dr. Patel, who is in agreement with the plan of care. NIDIA GARCIA [id number]/[facility] #: [id number] DONNY
[2018-10-14] MEDS: predniSONE TAB* 20 MG PO SCH (17:43)
[2018-10-14] MEDS: Prazosin CAP* 1 MG PO SCH (20:17)
[2018-10-14] MEDS: Nicotine Patch Removal NOTE PATCH OFF SCH (20:59)
[2018-10-14] MEDS: DOXEPIN HCL 150 MG PO SCH (20:59)
[2018-10-15] MEDS: hydrOXYzine HCL TAB* 50 MG PO PRN ×2 (02:10→11:20)
[2018-10-15] MEDS: Acetaminophen TAB* 325 MG PO PRN ×2 (02:10→11:19)
[2018-10-15] MEDS: Cyclobenzaprine TAB* 10 MG PO PRN ×2 (02:11→11:19)
[2018-10-15] MEDS: Nicotine* 2MG (FRUIT FLAVOR) GUM PO PRN ×4 (02:12→13:29)
[2018-10-15] MEDS: Insulin LISPRO* 1 UNITS UNIT SUBCUT SCH ×2 (08:01→11:51)
[2018-10-15] MEDS: Insulin ISOPH/REG 70/30 (*) 1 UNITS UNIT SUBCUT SCH (08:02)
[2018-10-15 08:12] VITALS: BP 130/89
[2018-10-15] MEDS: Vitamin THERAPEUTIC TAB PO SCH (08:24)
[2018-10-15] MEDS: Atorvastatin* 10 MG TAB PO SCH (08:24)
[2018-10-15] MEDS: Lisinopril TAB* 5 MG PO SCH (08:24)
[2018-10-15] MEDS: Aspirin EC TAB* 81 MG TAB.EC PO SCH (08:24)
[2018-10-15] MEDS: Docusate CAP* 100 MG PO SCH (08:24)
[2018-10-15] MEDS: Venlafaxine EXT RELEASE CAP* 75 MG PO SCH (08:25)
[2018-10-15] MEDS: Albuterol HFA INHALER* 8 gm MDI INH SCH ×2 (08:25→13:05)
[2018-10-15] MEDS: EMPAGLIFOZIN 25 MG PO SCH (08:26)
[2018-10-15] MEDS: Fluticasone NASAL SPRAY 50MCG* 16 gm SPRAY BTL BOTH NARES SCH (08:26)
[2018-10-15] MEDS: Gabapentin CAP(*) 300 MG PO SCH ×2 (08:27→13:05)
[2018-10-15] MEDS: Mometasone 220 MCG MDI INH SCH (08:28)
[2018-10-15] MEDS: Tiotropium CAP.INH* CAP.INH/18 MCG (USE ORDER SET !) INH SCH (08:29)
[2018-10-15] MEDS: predniSONE TAB* 20 MG PO SCH (08:35)
[2018-10-15] MEDS: Nicotine PATCH 7 MG/24 HR* PATCH TRANSDERM SCH (08:35)
--- NOTE | 2018-10-15 10:37 | PN ---
Subjective - Subjective Date of Service: 10/15/18 Service Type: 40552 Hosp care 15 min low complexity Assessment - Assessment Clinical Impression: Gurvinder is a 53-year-old white male who is diagnosed historically with schizoaffective disorder but more adequately fits the diagnoses of autism and depression. He came to the hospital with suicidal ideation that stems from his dissatisfaction with his living situation and inability to cope with it. Plan - Plan Treatment Plan: Name: GURVINDER BRYANT Birthdate: 1965 [id number] 10/14/18 Gurvinder will remain on medication prescribed in outpatient. He will have a respite from the O while he is here and then be sent back home. Medications: Current Medications Acetaminophen (Tylenol Tab*) 650 mg PO Q6HR PRN PRN Reason: PAIN Last Admin: 10/15/18 02:10 Dose: 650 mg Al Hydrox/Mg Hydrox/Simethicone (Maalox Plus*) 30 ml PO Q4H PRN PRN Reason: INDIGESTION Albuterol (Ventolin Hfa Inhaler*) 2 puff INH QID [facility] Last Admin: 10/15/18 08:25 Dose: 2 puff Albuterol/Ipratropium (Duoneb (Albuterol 2.5 Mg/Ipratropium 0.5 Mg)) 1 neb INH Q6H PRN PRN Reason: SOB/wheeze Aspirin (Aspirin Ec Tab*) 81 mg PO DAILY [facility] Last Admin: 10/15/18 08:24 Dose: 81 mg Atorvastatin Calcium (Lipitor*) 10 mg PO DAILY [facility]; Protocol Last Admin: 10/15/18 08:24 Dose: 10 mg Cyclobenzaprine HCl (Flexeril Tab*) 10 mg PO DAILY PRN PRN Reason: MUSCLE SPASMS Last Admin: 10/15/18 02:11 Dose: 10 mg Diphenhydramine HCl (Benadryl Po*) 25 mg PO TID PRN PRN Reason: Allergy Symptoms Docusate Sodium (Colace Cap*) 100 mg PO BID [facility] Last Admin: 10/15/18 08:24 Dose: 100 mg Empagliflozin (Jardiance) 25 mg PO DAILY [facility] Last Admin: 10/15/18 08:26 Dose: Not Given Fenofibrate (Tricor) 54 mg PO DAILY [facility] Last Admin: 10/15/18 08:28 Dose: 54 mg Fluticasone Propionate (Flonase Nasal [place] 50mcg*) 1 spray BOTH NARES DAILY [facility] Last Admin: 10/15/18 08:26 Dose: 1 spray Gabapentin (Neurontin Cap(*)) 300 mg PO TID@0900,1300,1700 [facility] Last Admin: 10/15/18 08:27 Dose: 300 mg Gabapentin (Neurontin Cap(*)) 600 mg PO BEDTIME [facility] Last Admin: 10/14/18 20:05 Dose: 600 mg Hydroxyzine HCl (Atarax Tab*) 50 mg PO Q6H PRN PRN Reason: ANXIETY Last Admin: 10/15/18 02:10 Dose: 50 mg Insulin Human Isoph/Insulin Regular (Humulin 70/30 (*)) 52 units SUBCUT 0800 [facility] Last Admin: 10/15/18 08:02 Dose: 52 units Insulin Human Isoph/Insulin Regular (Humulin 70/30 (*)) 48 units SUBCUT 1700 [facility] Last Admin: 10/14/18 17:27 Dose: 48 units Insulin Human Lispro (Humalog*) 0 units SUBCUT ACHS [facility]; Protocol Last Admin: 10/15/18 08:01 Dose: 2 units Lisinopril (Prinivil Tab*) 5 mg PO QAM [facility] Last Admin: 10/15/18 08:24 Dose: 5 mg Mometasone Furoate (Asmanex 220 Mcg Mdi *) 2 puff INH DAILY [facility] Last Admin: 10/15/18 08:28 Dose: 2 puff Multivitamins (Theragran Tab*) 1 tab PO DAILY [facility] Last Admin: 10/15/18 08:24 Dose: 1 tab Nicotine (Nicotine Patch 7 Mg/24 Hr*) 1 patch TRANSDERM DAILY [facility] Last Admin: 10/15/18 08:35 Dose: Not Given Nicotine Polacrilex (Nicotine Gum*) 2 mg PO Q2H PRN PRN Reason: CRAVINGS Last Admin: 10/15/18 06:08 Dose: 2 mg Nf: Doxepin Hcl [ (Doxepin Hcl] 150 Mg) 150 mg PO BEDTIME [facility] Last Admin: 10/14/18 20:59 Dose: Not Given Pharmacy Profile Note (Nicotine Patch Removal Note*) 1 note PATCH OFF 2100 [facility] Last Admin: 10/14/18 20:59 Dose: Not Given Polyethylene Glycol/Electrolytes (Miralax*) 17 gm PO DAILY PRN PRN Reason: CONSTIPATION Prazosin HCl (Minipress Cap*) 4 mg PO BEDTIME [facility] Last Admin: 10/14/18 20:17 Dose: 4 mg Prednisone (Deltasone Tab*) 40 mg PO DAILY [facility] Stop: 10/18/18 09:01 Last Admin: 10/15/18 08:35 Dose: Not Given Tiotropium [place] (Spiriva Cap.Inh*) 1 cap INH DAILY [facility] Last Admin: 10/15/18 08:29 Dose: 1 cap Venlafaxine HCl (Effexor Xr Cap*) 225 mg PO DAILY [facility] Last Admin: 10/15/18 08:25 Dose: 225 mg
== END 2018-10-15 14:04 | disposition home or self-care (01) | DRG 885 ==
LOC: ED 19:37 → BSU 10-13 01:30
PROVIDERS: ADMIT Psychiatry & Neurology Psychiatry; ATTEND Psychiatry & Neurology Psychiatry
DX: F33.3 Major depressive disorder, recurrent, severe with psychotic symptoms (principal); R45.851 Suicidal ideations; R45.850 Homicidal ideations; F84.0 Autistic disorder; E11.9 Type 2 diabetes mellitus without complications; E78.00 Pure hypercholesterolemia, unspecified; I10 Essential (primary) hypertension; N52.9 Male erectile dysfunction, unspecified; G47.33 Obstructive sleep apnea (adult) (pediatric); J44.9 Chronic obstructive pulmonary disease, unspecified; E66.9 Obesity, unspecified; F41.1 Generalized anxiety disorder; F10.21 Alcohol dependence, in remission; F11.21 Opioid dependence, in remission; K21.9 Gastro-esophageal reflux disease without esophagitis; K64.9 Unspecified hemorrhoids; M15.9 Polyosteoarthritis, unspecified; M47.9 Spondylosis, unspecified; M50.30 Other cervical disc degeneration, unspecified cervical region; F43.10 Post-traumatic stress disorder, unspecified; F17.210 Nicotine dependence, cigarettes, uncomplicated; R07.9 Chest pain, unspecified; Z81.8 Family history of other mental and behavioral disorders; Z81.1 Family history of alcohol abuse and dependence; Z68.34 Body mass index [BMI] 34.0-34.9, adult; Z88.8 Allergy status to other drugs, medicaments and biological substances; Z90.49 Acquired absence of other specified parts of digestive tract; Z88.6 Allergy status to analgesic agent; Z87.01 Personal history of pneumonia (recurrent); Z98.42 Cataract extraction status, left eye; Z98.41 Cataract extraction status, right eye; Z91.5 Personal history of self-harm
CPT/HCPCS: 36415; 71045; 80053; 80061; 80307; 80320; 80329; 81003; 82947; 83036; 83721; 84443; 84484; 85025; 93005; 99222; 99232; 99238; 99285; A9270-GY; G0480; J7512

== ENCOUNTER 2018-12-14 00:50 | Emergency (ER) | payer MEDICARE, MEDICAID ==
--- NOTE | 2018-12-14 01:18 | ED ---
HPI Chest Pain - HPI Summary HPI Summary: This patient is a 53 year old male presenting to [facility] with a chief complaint of chest pain. The patient states it is on the right anterior. He states he is tired of feeling sick and has thought of harming himself. He has a Hx of diabetes. He states his medications are causing him agitation and is contributing to his overall feeling. He reports his pain to be 8/10 in severity. - History of Current Complaint Chief Complaint: EDChestPainROMI Time Seen by Provider: 12/14/18 01:09 Hx Obtained From: Patient Pain Intensity: 8 Pain Scale Used: 0-10 Numeric - Additional Pertinent History Primary Care Physician: Dr. Pinto - Allergy/Home Medications Allergies/Adverse Reactions: Allergies Allergy/AdvReac Type Severity Reaction Status Date / Time aspirin Allergy Unknown Verified 10/13/18 10:49 Reaction Details clozapine [From Clozaril] Allergy See Comment Verified 11/15/17 16:57 NSAIDS (Non-Steroidal Allergy Bleeding Verified 11/15/17 16:57 Anti-Inflamma quetiapine Allergy Altered Verified 11/15/17 16:57 Mental Status PMH/Surg Hx/FS Hx/Imm Hx Endocrine/Hematology History: Reports: Hx Diabetes, Hx Anemia, Other Endocrine/ Hematological Disorders - large RBCs per pt Denies: Hx Thyroid Disease Cardiovascular History: Reports: Hx Angina, Hx Hypercholesterolemia, Hx Hypertension Denies: Hx Congestive Heart Failure, Hx Coronary Artery Disease, Hx Myocardial Infarction, Hx Peripheral Vascular Disease, Hx Valvular Heart Disease Respiratory History: Reports: Hx Asthma, Hx Chronic Obstructive Pulmonary Disease (COPD), Hx Pneumonia, Hx Sleep Apnea - NOT USING CPAP ANY MORE, Other Respiratory Problems/Disorders - PNEUMONIA, LAST WINTER GI History: Reports: Hx Gall Bladder Disease, Hx Gastroesophageal Reflux Disease , Hx Gastrointestinal Bleed, Hx Irritable Bowel, Other GI Disorders - hemorroids , frequent constipation Denies: Hx Jaundice, Hx Ulcer History: Reports: Other Problems/Disorders - occassional hesitation, UTI Denies: Hx Renal Disease Musculoskeletal History: Reports: Hx Arthritis, Hx Tendonitis, Other Musculoskeletal History - ankle fs, DDD in neck, 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 Sensory History: Reports: Hx Cataracts - removed, Other Sensory Impairments - LENS IMPLANTS BILATERAL Denies: Hx Contacts or Glasses, Hx Deafness, Hx Hearing Aid Opthamlomology History: Reports: Hx Cataracts - removed, Other Sensory Impairments - LENS IMPLANTS BILATERAL Denies: Hx Contacts or Glasses Neurological History: Reports: Hx Developmental Delay, Other Neuro Impairments/ Disorders - HEAD INJURY AT 4 YEARS OLD Psychiatric History: Reports: Hx Anxiety, Hx Autism, Hx Depression, Hx Post Traumatic Stress Disorder, Hx Inpatient Treatment, Hx Community Mental Health Tx , Hx Bipolar Disorder, Hx Suicide Attempt, Hx of Violent Episodes Against Others , Other Psychiatric Issues/Disorders - mood disorder Denies: Hx Eating Disorder, Hx Schizophrenia - Surgical History Surgery Procedure, Year, and Place: 2003 LEFT ankle FRACTURE [place]. wisdom teeth. 1999 cholecystectomy; [place]. bilateral cataract removal Hx Anesthesia Reactions: No - Immunization History Date of Tetanus Vaccine: unknown Date of Influenza Vaccine: unknown Infectious Disease History: No Infectious Disease History: Denies: Hx Clostridium Difficile, Hx Hepatitis, Hx Human Immunodeficiency Virus (HIV), Hx of Known/Suspected MRSA, Hx Shingles, Hx Tuberculosis, Traveled Outside the in Last 30 Days - Family History Known Family History: Positive: Diabetes - Social History Alcohol Use: None Alcohol Amount: RECOVERING ALCOHOLIC, 2005 Hx Substance Use: No Substance Use Type: Reports: None Hx Tobacco Use: Yes Smoking Status (MU): Heavy Every Day Tobacco Smoker Type: Cigarettes Amount Used/How Often: 1/2 PPD 27 YRS Length of Time of Smoking/Using Tobacco: 30 years Have You Smoked in the Last Year: Yes Review of Systems Negative: Fever, Chills Negative: Palpitations Negative: Shortness Of Breath Negative: Vomiting Negative: Anxious All Other Systems Reviewed And Are Negative: Yes Physical Exam - Summary Physical Exam Summary: Appearance: Well-appearing, Well-nourished, lying in bed comfortably Skin: Warm, dry, no obvious rash Eyes: sclera anicteric, no conjunctival pallor ENT: mucous membranes moist, pharynx appears normal Neck: Supple, nontender Respiratory: Clear to auscultation, no signs of respiratory distress Cardiovascular: Normal S1, S2. No murmurs. Normal distal pulses in tibial and radial bilaterally. Abdomen: Soft, nontender, normal active bowel sounds present Musculoskeletal: Normal, Strength/ROM Intact Neurological: A&Ox3, awake and alert, mentation is normal, speech is fluent and appropriate Psychiatric: Tangential, inability to focus. Triage Information Reviewed: Yes Vital Signs On Initial Exam: Initial Vitals Temp Pulse Resp BP Pulse Ox 97.8 F 94 22 142/83 95 12/14/18 00:56 12/14/18 00:56 12/14/18 00:56 12/14/18 00:56 12/14/18 00:56 Vital Signs Reviewed: Yes Procedures - Sedation Patient Received Moderate/Deep Sedation with Procedure: No Diagnostics - Vital Signs Vital Signs Temp Pulse Resp BP Pulse Ox 12/14/18 00:56 97.8 F 94 22 142/83 95 - Laboratory Result Diagrams: 12/14/18 01:38 12/14/18 04:16 Lab Statement: Any lab studies that have been ordered have been reviewed, and results considered in the medical decision making process. - Radiology CXR Radiology Interpretation Completed By: ED Physician Summary of Radiographic Findings: No acute process. Pending official radiologist report. - EKG 0054 Cardiac Rate: NL - 92 BPM EKG Rhythm: Sinus Rhythm Summary of EKG Findings: NSR at 92 BPM, P waves, QRS complex, and T waves are within normal limits, T waves and intervals are normal, no ischemic changes. This is a normal EKG. ED Provider has reviewed and interpreted this report. Chest Pain Course/Dx - Course Course Of Treatment: This is a chronically mentally ill man presenting with chief complaint of chest pain, but also c/o problems relative to his mental health. His speech is rambling and tangential. Medically he does not appear to have any serious acute problem, has had troponin neg x 2 and unremarkable EKG. He is medically cleared for mental health evaluation. After he was medically cleared, the patient told me he would like to go home. He does not feel suicidal or homicidal and would prefer to followup as an outpatient. - Diagnoses Provider Diagnoses: Chest pain Discharge ED - Sign-Out/Discharge Documenting (check all that apply): Patient Departure Patient Received Moderate/Deep Sedation with Procedure: No - Discharge Plan Condition: Improved Disposition: HOME Patient Education Materials: Chest Pain (DC) Referrals: Chinmay Pinto MD [Primary Care Provider] - 3 Days - Billing Disposition and Condition Condition: IMPROVED Disposition: Home - Attestation Statements Document Initiated by Scribe: Yes Documenting Scribe: Deniz Perez Provider For Whom Nancieibe is Documenting (Include Credential): Olegario Castro MD Scribe Attestation: Deniz Burgos, scribed for Olegario Castro MD on 12/20/18 at 0416. Scribe Documentation Reviewed: Yes Provider Attestation: The documentation as recorded by the scribe, Deniz Perez accurately reflects the service I personally performed and the decisions made by me, Olegario Castro MD Status of Scribe Document: Viewed
[2018-12-14 01:45] LABS: ABS Basophils 0.1 10^3/ul (0-0.2); ABS Eosinophils 0.4 10^3/ul (0-0.6); ABS Lymphocytes 2.9 10^3/ul (1.0-4.8); ABS Monocytes 0.7 10^3/ul (0-0.8); ABS Neutrophils 3.3 10^3/ul (1.5-7.7); Eosinophil % 4.9 %; Hematocrit 45 % (42-52); Hemoglobin 15.8 g/dL (14.0-18.0); Lymphocyte % 39.6 %; Mean Corpuscular HGB Conc 35 g/dL (31-36); Mean Corpuscular Hemoglobin 36 pg (27-31); Mean Corpuscular Volume 101 fL (80-94); Mean Platelet Volume 8.2 fL (7.4-10.4); Nucleated Red Blood Cells % 0.1; Platelet Count 165 10^3/uL (150-450); Red Blood Count 4.42 10^6 /uL (4.18-5.48); Red Cell Distribution Width 14 % (10-15); White Blood Count 7.3 10^3/uL (3.5-10.8)
--- OUTSIDE RECORDS SUMMARY | 2018-12-14 01:50 | XMS REPORT | Continuity of Care Document ---
:1965 External Reference #:[id number] Author Name Renae Meraz Care Team Providers Name Role Phone Chinmay Pinto MD Primary Care Physician Unavailable Payers Date Identification Numbers Payment Provider Subscriber Policy Number: [id number] Medicare Gurvinder Collins PayID: [id number] [address] [place] [address] Policy Number: [id number] Medicaid Gurvinder Collins Group Name: 1 1 [address] PayID: [id number] [place] [address] Problems Active Problems Provider Date Obstructive sleep apnea syndrome Siddharth Richardson M.D. Onset: 09/16/2015 Morbid obesity Marianne Berg MD Onset: 12/16/2015 Tobacco user Melia Dc DNP, RN, [employer] Onset: 03/08/2016 Autistic disorder Melia Dc DNP, RN, [employer] Onset: 10/04/2016 Hypoxemia Melia Dc DNP, JOSE MARTIN, [employer] Onset: 10/04/2016 Feeling suicidal Ashly Solis NP Onset: 11/26/2017 Major depressive disorder, single Ashly Solis NP Onset: 11/26/2017 episode, unspecified Type 2 diabetes mellitus Ashly Solis NP Onset: 11/26/2017 Chronic obstructive lung disease Ashly Solis NP Onset: 11/26/2017 Family History Date Family Member(s) Observation Comments General Noncontribitory Social History Type Date Description Comments Sex Unknown Occupation Disabled Tobacco Use Start: Unknown currently smokes 1/2 Pack Daily Smoking Status Reviewed: 03/26/18 currently smokes 1/2 Pack Daily ETOH Use Denies alcohol use 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 Recreational Drug Use Never Used Drugs Tobacco Use Start: Unknown Light tobacco smoker (10 or fewer cigarettes/day) Exercise Type/Frequency Exercises regularly Allergies, Adverse Reactions, Alerts Active Allergies Reaction Severity Comments Date Seroquel 09/16/2015 Ibuprofen 09/16/2015 Aspirin 09/16/2015 Clozaril 09/16/2015 Medications Active Medications SIG Qnty Indications Ordering Provider Date Oxygen 2 l nc at R09.02 Melia Dc, 11/03/2016 [facility] bedtime needs DNP, RN, [employer] tubing and supplies, rf x 4 prn Doxepin HCL 1 by mouth a day Unknown 12/15/2015 150mg Capsules Humalog Mix 75/25 as directed Unknown 09/15/2015 Kwikpen (75-25)100Unit/ML Supn Latuda take 1 tablet by Unknown 09/15/2015 120mg Tablets mouth at bedtime Buspirone HCL take one tablet Unknown 09/15/2015 15mg Tablets by mouth 3 times a day Fluoxetine HCL (PMDD) 1 by mouth every Unknown 09/15/2015 20mg day Capsules Cyclobenzaprine HCL 1 tablet by Unknown 09/15/2015 5mg mouth three Tablets times a day as needed Psyllium 3.4 g in a glass Unknown 09/15/2015 58.6% Powder of water by mouth qd-tid as needed Fluoxetine HCL 1 by mouth every Unknown 09/15/2015 40mg Capsules day Lisinopril 1 by mouth every Unknown 09/15/2015 5mg Tablets day Prazosin HCL 2 by mouth at Unknown 09/15/2015 2mg Capsules bedtime Diphenhydramine HCL take 1 by mouth Unknown 09/15/2015 25mg 3 times tablet Capsules daily as needed Combivent Respimat 1 puffs 4-6 Unknown 09/15/2015 times daily as 20-100mcg/Act Aerosol needed Docu Soft 1 by mouth twice Unknown 09/15/2015 100mg Capsules a day Lovaza take 4 capsules Unknown 09/15/2015 1gm Capsules twice a day Tricor 1 by mouth every Unknown 09/15/2015 145mg Tablets day Flonase Allergy Relief spray 1 spray in Unknown 09/15/2015 each nostril 50mcg/Act Suspension twice daily Acetaminophen 2 tablets by Unknown 09/15/2015 325mg Tablets mouth every 6 hours as needed for pain/fever Ranitidine HCL 1 by mouth a Unknown 09/15/2015 150mg Capsules day Artificial Tears as directed prn Unknown 09/15/2015 0.1-0.3% Solution Flovent HFA 2 puffs twice Unknown 09/15/2015 110mcg/Act daily Aerosol Hydroxyzine HCL 1 tab by mouth Unknown 09/15/2015 50mg Tablets times a day as needed Testosterone qd Unknown 100mg/ml Solution Jardiance 1 by mouth every Unknown 10mg Tablets night History Medications Humalog Mix 75/25 45 units sq with Unknown 09/15/2015 - 09/15/2015 (75-25)100Unit/ML dinner Suspension Probiotic 1 by mouth every Unknown 09/15/2015 - 07/24/2016 Capsules day Vital Signs Date Vital Result Comment 03/26/2018 1:43pm Height 67 inches 5'7" Weight 210.50 lb Heart Rate 76 /min BP Systolic Sitting 118 mmHg Lue large cuff BP Diastolic Sitting 76 mmHg Lue large cuff Respiratory Rate 22 /min O2 % BldC Oximetry 96 % On Ra BMI (Body Mass Index) 33.0 kg/m2 11/07/2016 2:51pm Height 67 inches 5'7" Weight 215.00 lb Heart Rate 72 /min BP Systolic Sitting 114 mmHg BP Diastolic Sitting 66 mmHg Respiratory Rate 14 /min O2 % BldC Oximetry 94 % BMI (Body Mass Index) 33.7 kg/m2 10/04/2016 11:11am Height 67 inches 5'7" Weight 229.00 lb Heart Rate 72 /min BP Systolic Sitting 124 mmHg BP Diastolic Sitting 90 mmHg Respiratory Rate 16 /min O2 % BldC Oximetry 97 % BMI (Body Mass Index) 35.9 kg/m2 07/25/2016 11:04am Height 67 inches 5'7" Heart Rate 83 /min BP Systolic Sitting 120 mmHg BP Diastolic Sitting 68 mmHg Respiratory Rate 18 /min Pain Level 5 both feet, hamstrings, neck O2 % BldC Oximetry 96 % 04/21/2016 11:14am Height 67 inches 5'7" Weight 227.00 lb Heart Rate 84 /min BP Systolic 128 mmHg BP Diastolic 86 mmHg Respiratory Rate 14 /min O2 % BldC Oximetry 94 % BMI (Body Mass Index) 35.5 kg/m2 03/08/2016 1:47pm Height 67 inches 5'7" Weight 227.00 lb Heart Rate 86 /min BP Systolic 130 mmHg BP Diastolic 80 mmHg Respiratory Rate 14 /min O2 % BldC Oximetry 96 % BMI (Body Mass Index) 35.5 kg/m2 12/16/2015 2:14pm Height 67 inches 5'7" Weight 227.00 lb Heart Rate 86 /min BP Systolic Sitting 126 mmHg BP Diastolic Sitting 70 mmHg Respiratory Rate 18 /min O2 % BldC Oximetry 97 % BMI (Body Mass Index) 35.5 kg/m2 11/04/2015 2:50pm Height 67 inches 5'7" Weight 227.00 lb Heart Rate 81 /min BP Systolic 120 mmHg BP Diastolic 82 mmHg Respiratory Rate 16 /min O2 % BldC Oximetry 96 % BMI (Body Mass Index) 35.5 kg/m2 09/16/2015 2:37pm Height 67 inches 5'7" Weight 227.12 lb Heart Rate 76 /min BP Systolic 122 mmHg BP Diastolic 84 mmHg Respiratory Rate 14 /min O2 % BldC Oximetry 97 % BMI (Body Mass Index) 35.6 kg/m2 Neck Circumference in inches 19 Procedures Date Code Description Status 03/09/2016 67564 Polysomnography Sleep Staging 4+ Parameters W/Cpap Completed 02/29/2016 68561 Treadmill Interp/Report Only Completed 02/29/2016 14077 Stress Test Supervsn W/Out I/R Completed 02/29/2016 84923 EKG, Interpretation Only Completed 10/07/2015 81706 Polysomnography Sleep Staging 4+ Parameters Completed 08/01/2012 29008 Treadmill Interp/Report Only Completed 08/01/2012 02368 Stress Test Supervsn W/Out I/R Completed 01/04/2009 45268 Treadmill Interp/Report Only Completed 01/04/2009 47034 Stress Test Supervsn W/Out I/R Completed 12/18/2008 46642 ECHO Stress Test Incl Perf Contiuous ekg Monitoring W/Phys Completed Superv 12/18/2008 93987 ECHO Stress Test Incl Perf Contiuous ekg Monitoring W/Phys Completed Superv Encounters Type Date Location Provider Dx Diagnosis Office Visit 03/26/2018 [facility]monology [facility] Sleep Melia Dc, R09.02 Hypoxemia 1:45p Services Of [facility] VAL[facility], RN, [employer] F17.210 Nicotine dependence, cigarettes, uncomplicated G47.33 Obstructive sleep apnea (adult) (pediatric) Z68.33 Body mass index (BMI) 33.0-33.9, adult Office Visit 11/26/2017 [facility] R45.851 Suicidal 1:02p Assoc,pc Will, HAT IRONER ideations Hospitalists F32.9 Major depressive disorder, single episode, unspecified E11.9 Type 2 diabetes mellitus without complications J44.9 Chronic obstructive pulmonary disease, unspecified Office Visit 11/07/2016 2:30p Pulmonology And Melia Dc, R09.02 Hypoxemia Sleep Services Of JOSE MARTIN VALENTE, [facility] G47.33 Obstructive sleep apnea (adult) (pediatric) F84.0 Autistic disorder Office Visit 10/04/2016 11:00a Pulmonology And Melia Dc, R09.02 Hypoxemia Sleep [facility] JOSE MARTIN VAL[facility], [facility] G47.33 Obstructive sleep apnea (adult) (pediatric) F84.0 Autistic disorder F17.210 Nicotine dependence, cigarettes, uncomplicated Office Visit 07/25/2016 Pulmonology And Melia G47.33 Obstructive sleep 11:15a Sleep Services Of SIDRA Dc RN, apnea (adult) [facility] (pediatric) F84.0 Autistic disorder E66.01 Morbid (severe) obesity due to excess calories Z68.35 Body mass index (BMI) 35.0-35.9, adult Office Visit 04/21/2016 Pulmonology And Melia G47.33 Obstructive sleep 11:00a Sleep Services Of SIDRA Dc RN, apnea (adult) [facility] (pediatric) E66.01 Morbid (severe) obesity due to excess calories Office Visit 03/08/2016 Pulmonology And Melia G47.33 Obstructive sleep 1:45p Sleep Services Of SIDRA Dc RN, apnea (adult) [facility] (pediatric) F84.0 Autistic disorder F40.298 Other specified phobia E66.01 Morbid (severe) obesity due to excess calories Z68.35 Body mass index (BMI) 35.0-35.9, adult F17.210 Nicotine dependence, cigarettes, uncomplicated Office Visit 02/29/2016 1:58p [facility] Maricarmen R07.9 Chest pain, Assoc,pc Rooth, DO unspecified Hospitalists E11.9 Type 2 diabetes mellitus without complications G47.33 Obstructive sleep apnea (adult) (pediatric) Office Visit 12/16/2015 2:30p Pulmonology And Marianne G47.33 Obstructive sleep Sleep Services Of MD Morena apnea (adult) [facility] (pediatric) E66.01 Morbid (severe) obesity due to excess calories Office Visit 11/04/2015 Pulmonology And Siddharth RILEY G47.33 Obstructive sleep 3:00p Sleep Services L[place] Richardson apnea (adult) Of [facility] (pediatric) Office Visit 09/16/2015 Pulmonology And Siddharth RILEY G47.33 Obstructive sleep 2:15p Sleep Services L[place] Richardson apnea (adult) Of [facility] (pediatric) Office Visit 08/01/2012 Mora Qutaybeh S. 794.31 Electrocardiogram 10:30a Cardiology Pete, (ECG) (EKG) Abnormal M.DNakul 401.1 Hypertension Benign 786.50 Pain Chest Unspec 250.71 Diabetes W/ Peripheral Circulatory Disorders Type I Control 272.4 Hyperlipidemia Other Unspec Office Visit 12/18/2008 [place] Kelly S. 401.1 Hypertension 2:30p Cardiology Lima Freeman Benign 272.4 Hyperlipidemia Other Unspec 786.50 Pain Chest Unspec Plan of Treatment 03/26/2018 - Melia Dc DNP, RN, [employer]ENT-BCR09.02 HypoxemiaFollow up:6 monthsRecommendations:To continue oxygen at night Will need replacement tubing and nasal prongs.F17.210 Nicotine dependence, cigarettes, uncomplicatedRecommendations:Do not smoke near the oxygen Consider quitting iqxobvfX81.33 Obstructive sleep apnea (adult) (pediatric)Z68.33 Body mass index (BMI) 33.0-33.9, adultRecommendations:Continue with weight loss efforts
--- OUTSIDE RECORDS SUMMARY | 2018-12-14 01:50 | XMS REPORT | Continuity of Care Document ---
:1965 External Reference #:[id number] Author Name Renae Meraz Care Team Providers Name Role Phone Chinmay Pinto MD Primary Care Physician Unavailable Payers Date Identification Numbers Payment Provider Subscriber Policy Number: [id number] Medicare Gurvinder Collins PayID: [id number] [address] [place] [address] Policy Number: [id number] Medicaid Gurvinder Collins Group Name: 1 1 [address] PayID: [id number] [place] [address] Problems Active Problems Provider Date Obstructive sleep apnea syndrome Siddharth Richardson M.D. Onset: 09/16/2015 Morbid obesity Marianne Berg MD Onset: 12/16/2015 Tobacco user Melia Dc DNP, RN, HOUSEKEEPER MANAGER-BC Onset: 03/08/2016 Autistic disorder Melia Dc DNP, RN, HOUSEKEEPER MANAGER-BC Onset: 10/04/2016 Hypoxemia Melia Dc DNP, JO[facility] MARTIN, HOUSEKEEPER MANAGER-BC Onset: 10/04/2016 Feeling suicidal Ashly Solis NP [...] l nc at R09.02 Melia Dc, 11/03/2016 [facility] bedtime needs DNP, RN, HOUSEKEEPER MANAGER-BC tubing and supplies, rf x 4 prn [...] 19 Procedures Date Code Description Status 03/09/2016 75458 Polysomnography Sleep Staging 4+ Parameters W/Cpap Completed 02/29/2016 25943 Treadmill Interp/Report Only Completed 02/29/2016 16411 Stress Test Supervsn W/Out I/R Completed 02/29/2016 53229 EKG, Interpretation Only Completed 10/07/2015 39322 Polysomnography Sleep Staging 4+ Parameters Completed 08/01/2012 24827 Treadmill Interp/Report Only Completed 08/01/2012 00725 Stress Test Supervsn W/Out I/R Completed 01/04/2009 31260 Treadmill Interp/Report Only Completed 01/04/2009 03224 Stress Test Supervsn W/Out I/R Completed 12/18/2008 68113 ECHO Stress Test Incl Perf Contiuous ekg Monitoring W/Phys Completed Superv 12/18/2008 07816 ECHO Stress Test Incl Perf Contiuous ekg Monitoring W/Phys Completed Superv Encounters Type Date Location Provider Dx Diagnosis Office Visit 03/26/2018 [facility] Melia Dc, R09.02 Hypoxemia 1:45p [facility], RN, HOUSEKEEPER MANAGER-BC F17.210 Nicotine dependence, cigarettes, uncomplicated G47.33 Obstructive sleep apnea (adult) (pediatric) Z68.33 Body mass index (BMI) 33.0-33.9, adult Office Visit 11/26/2017 [facility] R45.851 Suicidal 1:02p Assoc,pc Will, TIRE VULCANIZER ideations Hospitalists F32.9 Major depressive disorder, single episode, unspecified E11.9 Type 2 diabetes mellitus without complications J44.9 Chronic obstructive pulmonary disease, unspecified Office Visit 11/07/2016 2:30p Pulmonology And Melia Dc, R09.02 Hypoxemia [facility], [facility] G47.33 Obstructive sleep apnea (adult) (pediatric) F84.0 Autistic disorder Office Visit 10/04/2016 11:00a Pulmonology And Melia Dc, R09.02 Hypoxemia [facility], [facility] G47.33 Obstructive sleep apnea (adult) (pediatric) F84.0 Autistic disorder F17.210 Nicotine dependence, cigarettes, uncomplicated Office Visit 07/25/2016 Pulmonology And Melia G47.33 Obstructive sleep 11:15a Sleep Services Of SIDRA Dc RN, apnea (adult) [facility] (pediatric) F84.0 Autistic disorder E66.01 Morbid (severe) obesity due to excess calories Z68.35 Body mass index (BMI) 35.0-35.9, adult Office Visit 04/21/2016 Pulmonology And Melia G47.33 Obstructive sleep 11:00a [facility] Of SIDRA Dc RN, apnea (adult) [facility] (pediatric) E66.01 Morbid (severe) obesity due to excess calories Office Visit 03/08/2016 Pulmonology And Melia G47.33 Obstructive sleep 1:45p [facility] Of SIDRA Dc RN, apnea (adult) [facility] (pediatric) F84.0 Autistic disorder F40.298 Other specified phobia E66.01 Morbid (severe) obesity due to excess calories Z68.35 Body mass index (BMI) 35.0-35.9, adult F17.210 Nicotine dependence, cigarettes, uncomplicated Office Visit 02/29/2016 1:58p [facility] R07.9 Chest pain, Assoc,pc Rooth, DO unspecified Hospitalists E11.9 Type 2 diabetes mellitus without complications G47.33 Obstructive sleep apnea (adult) (pediatric) Office Visit 12/16/2015 2:30p Pulmonology And Marianne G47.33 Obstructive sleep Sleep Services Of MD Morena apnea (adult) [facility] (pediatric) E66.01 Morbid (severe) obesity due to excess calories Office Visit 11/04/2015 Pulmonology And Siddharth RILEY G47.33 Obstructive sleep 3:00p Sleep Services [place] Richardson apnea (adult) Of [facility] (pediatric) Office Visit 09/16/2015 Pulmonology And Siddharth RILEY G47.33 Obstructive sleep 2:15p Sleep Services [place] Richardson apnea (adult) Of [facility] (pediatric) Office Visit 08/01/2012 [place] Qutaybeh S. 794.31 Electrocardiogram 10:30a Cardiology Pete, (ECG) (EKG) Abnormal M.DNakul 401.1 Hypertension Benign 786.50 Pain Chest Unspec 250.71 Diabetes W/ Peripheral Circulatory Disorders Type I Control 272.4 Hyperlipidemia Other Unspec Office Visit 12/18/2008 [place] Kelly S. 401.1 Hypertension 2:30p Cardiology Lima Freeman Benign 272.4 Hyperlipidemia Other Unspec 786.50 Pain Chest Unspec Plan of Treatment 03/26/2018 - Melia Dc DNP, RN, HOUSEKEEPER MANAGER-BCR09.02 HypoxemiaFollow up:6 monthsRecommendations:To continue oxygen at night Will need replacement tubing and nasal prongs.F17.210 Nicotine dependence, cigarettes, uncomplicatedRecommendations:Do not smoke near the oxygen Consider quitting eelnevmF18.33 Obstructive sleep apnea (adult) (pediatric)Z68.33 Body mass index (BMI) 33.0-33.9, adultRecommendations:Continue with weight loss efforts
[2018-12-14 02:02] LABS: ALT 23 U/L (7-52); Albumin 4.1 g/dL (3.2-5.2); Albumin/Globulin Ratio 1.6 (1-3); Alkaline Phosphatase 57 U/L (34-104); BUN/Creatinine Ratio 23.5 (8-20); Blood Urea Nitrogen 16 mg/dL (6-24); CO2 Carbon Dioxide 27 mmol/L (22-32); Calcium 9.2 mg/dL (8.6-10.3); Chloride 97 mmol/L (101-111); EGFR African American 148.8 (>60); EGFR Non-African American 122.9 (>60); Globulin 2.6 g/dL (2-4); Glucose 254 mg/dL (70-100); Sodium 130 mmol/L (135-145); Total Protein 6.7 g/dL (6.4-8.9)
[2018-12-14 02:04] LABS: Anion Gap 6 mmol/L (2-11)
[2018-12-14] MEDS ORDERED: LORazepam TAB(*) 1 MG PO ONE (02:21)
[2018-12-14 05:13] LABS: Potassium Redraw 3.9 mmol/L (3.5-5.0)
[2018-12-14 06:49] VITALS: BP 138/92
== END 2018-12-14 06:42 | disposition home or self-care (01) ==
LOC: ED 00:50
DX: R07.9 Chest pain, unspecified (principal); E11.9 Type 2 diabetes mellitus without complications; D64.9 Anemia, unspecified; E78.00 Pure hypercholesterolemia, unspecified; I10 Essential (primary) hypertension; J44.9 Chronic obstructive pulmonary disease, unspecified; K21.9 Gastro-esophageal reflux disease without esophagitis; F41.9 Anxiety disorder, unspecified; F32.9 Major depressive disorder, single episode, unspecified; F43.10 Post-traumatic stress disorder, unspecified; F84.0 Autistic disorder; F17.210 Nicotine dependence, cigarettes, uncomplicated; Z88.6 Allergy status to analgesic agent; Z88.8 Allergy status to other drugs, medicaments and biological substances; Z79.82 Long term (current) use of aspirin; Z79.4 Long term (current) use of insulin; Z79.899 Other long term (current) drug therapy
CPT/HCPCS: 36415; 71045; 80053; 84484; 85025; 93005; 99285; A9270-GY

== ENCOUNTER 2019-01-08 03:14 | Emergency (ER) | payer MEDICARE, MEDICAID ==
--- NOTE | 2019-01-08 03:32 | ED ---
Complex/Multi-Sys Presentation - HPI Summary HPI Summary: This patient is a 53 year old M presenting to [facility] via EMS with a chief complaint of a fall since 229 today. Pt states he fell and hit his head when he was walking in the bathroom. He notes he does not remember all of the details of the event. The patient rates the pain 8/10 in severity. Symptoms aggravated by nothing. Symptoms alleviated by nothing. Patient reports [place], CP, neck pain, back pain, buttocks pain, anxiety, numbness in his left foot. Pt has autism, depression, diabetes, sleep apnea. Pt smokes, does not drink alcohol or use recreational drugs. - History Of Current Complaint Time Seen by Provider: 01/08/19 03:16 Hx Obtained From: Patient Onset/Duration: Sudden Onset, Lasting Hours - since 229 today, Resolved Timing: Hours - since 229 today Severity Currently: Mild Severity Initially: Mild Aggravating Factor(s): nothing Alleviating Factor(s): nothing Associated Signs And Symptoms: Positive: Headache, Chest Pain, Back Pain, Other - positive - fall, neck pain, buttocks pain, anxiety, numbness in his left foot. - Allergies/Home Medications Allergies/Adverse Reactions: Allergies Allergy/AdvReac Type Severity Reaction Status Date / Time aspirin Allergy Unknown Verified 10/13/18 10:49 Reaction Details clozapine [From Clozaril] Allergy See Comment Verified 11/15/17 16:57 NSAIDS (Non-Steroidal Allergy Bleeding Verified 11/15/17 16:57 Anti-Inflamma quetiapine Allergy Altered Verified 11/15/17 16:57 Mental Status PMH/Surg Hx/FS Hx/Imm Hx Previously Healthy: No Endocrine/Hematology History: Reports: Hx Diabetes, Hx Anemia, Other Endocrine/ Hematological Disorders - large RBCs per pt Denies: Hx Thyroid Disease Cardiovascular History: Reports: Hx Angina, Hx Hypercholesterolemia, Hx Hypertension Denies: Hx Congestive Heart Failure, Hx Coronary Artery Disease, Hx Myocardial Infarction, Hx Peripheral Vascular Disease, Hx Valvular Heart Disease Respiratory History: Reports: Hx Asthma, Hx Chronic Obstructive Pulmonary Disease (COPD), Hx Pneumonia, Hx Sleep Apnea - NOT USING CPAP ANY MORE, Other Respiratory Problems/Disorders - PNEUMONIA, LAST WINTER GI History: Reports: Hx Gall Bladder Disease, Hx Gastroesophageal Reflux Disease , Hx Gastrointestinal Bleed, Hx Irritable Bowel, Other GI Disorders - hemorroids , frequent constipation Denies: Hx Jaundice, Hx Ulcer History: Reports: Other Problems/Disorders - occassional hesitation, UTI Denies: Hx Renal Disease Musculoskeletal History: Reports: Hx Arthritis, Hx Tendonitis, Other Musculoskeletal History - ankle fs, DDD in neck, 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 Sensory History: Reports: Hx Cataracts - removed, Other Sensory Impairments - LENS IMPLANTS BILATERAL Denies: Hx Contacts or Glasses, Hx Deafness, Hx Hearing Aid Opthamlomology History: Reports: Hx Cataracts - removed, Other Sensory Impairments - LENS IMPLANTS BILATERAL Denies: Hx Contacts or Glasses Neurological History: Reports: Hx Developmental Delay, Other Neuro Impairments/ Disorders - HEAD INJURY AT 4 YEARS OLD Psychiatric History: Reports: Hx Anxiety, Hx Autism, Hx Depression, Hx Post Traumatic Stress Disorder, Hx Inpatient Treatment, Hx Community Mental Health Tx , Hx Bipolar Disorder, Hx Suicide Attempt, Hx of Violent Episodes Against Others , Other Psychiatric Issues/Disorders - mood disorder Denies: Hx Eating Disorder, Hx Schizophrenia - Surgical History Surgical History: Yes Surgery Procedure, Year, and Place: 2003 LEFT ankle FRACTURE [place]. wisdom teeth. 1999 cholecystectomy; [place]. bilateral cataract removal Hx Anesthesia Reactions: No - Immunization History Date of Tetanus Vaccine: unknown Date of Influenza Vaccine: unknown Infectious Disease History: No Infectious Disease History: Denies: Hx Clostridium Difficile, Hx Hepatitis, Hx Human Immunodeficiency Virus (HIV), Hx of Known/Suspected MRSA, Hx Shingles, Hx Tuberculosis, Traveled Outside the in Last 30 Days - Family History Known Family History: Positive: Diabetes - Social History Alcohol Use: None Alcohol Amount: RECOVERING ALCOHOLIC, 2005 Hx Substance Use: No Substance Use Type: Reports: None Hx Tobacco Use: Yes Smoking Status (MU): Heavy Every Day Tobacco Smoker Type: Cigarettes Amount Used/How Often: 1/2 PPD 27 YRS Length of Time of Smoking/Using Tobacco: 30 years Have You Smoked in the Last Year: Yes Review of Systems Constitutional: Other - positive - fall Positive: Chest Pain Musculoskeletal: Other - positive - neck pain, back pain, buttocks pain Positive: Headache, Numbness - left foot Positive: Anxious All Other Systems Reviewed And Are Negative: Yes Physical Exam - Summary Physical Exam Summary: General: Obese, Well-nourished MALE. No acute distress. HEENT: Normocephalic, Atraumatic. Eyes: Conjuctiva normal, PERRL. Ears: TMs within normal limits. Nares: (-) discharge, (-) erythema. Oropharynx: Clear, mucous membranes moist, (-) exudates. Neck: Soft, FROM, (-) lymphadenopathy, (-) thyromegaly, (-) JVD. Cardiovascular: Normal sinus rhythm, (-) murmur. Lungs: Clear to auscultation bilaterally (-) wheezes, (-) rales, (-) rhonchi. Abdomen: Soft, mild diffuse tenderness of the ABD, non-distended, (-) organomegaly, normal bowel sounds. Back: Mild diffuse tenderness of the back Extremities: No edema. Skin: Warm, dry, (-) rash. Neuro: Alert and oriented x3, no focal deficits. Normal strength and sensation in the extremities bilaterally Psychiatric: Mildly anxious appearing, affect normal. Triage Information Reviewed: Yes Vital Signs On Initial Exam: Initial Vitals Temp Pulse Resp BP Pulse Ox 98.2 F 90 13 109/91 93 01/08/19 03:18 01/08/19 03:18 01/08/19 03:18 01/08/19 03:18 01/08/19 03:18 Vital Signs Reviewed: Yes Procedures - Sedation Patient Received Moderate/Deep Sedation with Procedure: No Diagnostics - Vital Signs Vital Signs Temp Pulse Resp BP Pulse Ox 01/08/19 03:18 98.2 F 90 13 109/91 93 - Laboratory Lab Statement: Any lab studies that have been ordered have been reviewed, and results considered in the medical decision making process. Complex Multi-Symp Course/Dx Course Of Treatment: 53-year-old male from [place] with follow-up. Patient has extensive complaints at this time worst of which seems to be his low back pain and buttock pain after fall. However he also complains of headache, chest pain, hand pain. Leg pain. He states after his fall he was able to get up and walk. Did not take anything for pain. Prior to evaluation patient was requesting food and drink. After evaluation he was given Toradol IM, ice, food and drink. Significant improvement in his symptoms and patient was discharged home. Follow up with PCP. - Diagnoses Provider Diagnoses: Fall, Back pain Discharge ED - Sign-Out/Discharge Documenting (check all that apply): Patient Departure - discharge - Discharge Plan Condition: Stable Disposition: HOME Patient Education Materials: Back Pain (ED), Fall Prevention (ED) Referrals: Chinmay Pinto MD [Primary Care Provider] - 3 Days Additional Instructions: Follow up with your primary care provider within 3 days. Return to the ED for any new or worsening symptoms. - Billing Disposition and Condition Condition: STABLE Disposition: Home - Attestation Statements Document Initiated by Rebeca: Yes Documenting Scribe: Daniel Bui Provider For Whom Nancieibe is Documenting (Include Credential): Dr. Susi Cruz MD Scribe Attestation: Daniel Burgos, scribed for Dr. Susi Cruz MD on 01/08/19 at 0600. Scribe Documentation Reviewed: Yes Provider Attestation: The documentation as recorded by the Daniel dunham accurately reflects the service I personally performed and the decisions made by me, Dr. Susi Cruz MD Status of Scribe Document: Viewed
[2019-01-08] MEDS ORDERED: Ketorolac INJ* 30 MG/ML 1 ML VIAL IM ONE (04:13)
[2019-01-08 05:37] VITALS: BP 123/71
== END 2019-01-08 05:36 | disposition home or self-care (01) ==
LOC: ED 03:14
DX: M54.9 Dorsalgia, unspecified (principal); W18.30XA Fall on same level, unspecified, initial encounter; Y92.002 Bathroom of unspecified non-institutional (private) residence as the place of occurrence of the external cause; E11.9 Type 2 diabetes mellitus without complications; D64.9 Anemia, unspecified; E78.00 Pure hypercholesterolemia, unspecified; I10 Essential (primary) hypertension; J44.9 Chronic obstructive pulmonary disease, unspecified; K21.9 Gastro-esophageal reflux disease without esophagitis; R62.50 Unspecified lack of expected normal physiological development in childhood; F41.9 Anxiety disorder, unspecified; F43.10 Post-traumatic stress disorder, unspecified; F17.210 Nicotine dependence, cigarettes, uncomplicated; Z88.6 Allergy status to analgesic agent; Z88.8 Allergy status to other drugs, medicaments and biological substances; Z79.899 Other long term (current) drug therapy
CPT/HCPCS: 96372; 99283; J1885

== ENCOUNTER 2019-03-13 21:55 | Inpatient (IN) | payer MEDICARE, MEDICAID ==
[2019-03-13 22:11] LABS: ABS Basophils 0.1 10^3/ul (0-0.2); ABS Eosinophils 0.3 10^3/ul (0-0.6); ABS Lymphocytes 3.5 10^3/ul (1.0-4.8); ABS Monocytes 0.7 10^3/ul (0-0.8); ABS Neutrophils 4.3 10^3/ul (1.5-7.7); Eosinophil % 3.9 %; Hematocrit 46 % (42-52); Hemoglobin 16.6 g/dL (14.0-18.0); Lymphocyte % 39.1 %; Mean Corpuscular HGB Conc 36 g/dL (31-36); Mean Corpuscular Hemoglobin 35 pg (27-31); Mean Corpuscular Volume 99 fL (80-94); Mean Platelet Volume 8.4 fL (7.4-10.4); Nucleated Red Blood Cells % 0.1; Platelet Count 172 10^3/uL (150-450); Red Cell Distribution Width 13 % (10-15); White Blood Count 8.9 10^3/uL (3.5-10.8)
--- NOTE | 2019-03-13 22:13 | ED ---
Psychiatric Complaint - HPI Summary HPI Summary: This patient is a 54 year old male brought in by EMS from [place] presenting to [facility] with a psychiatric complaint. The patient reports Constipation, suicidal ideation, anxiety, hallucinations and agitation. Patient states his neighbor has been bothering him at [place] and he may want to punch him if he comes near him. He states he is sick of his living situation at [place]. Patient would like a mental health evaluation. Medications reviewed, allergies noted. - History Of Current Complaint Time Seen by Provider: 03/13/19 21:55 Hx Obtained From: Patient Onset/Duration: Lasting Hours Character: Anxious Has Suicidal: Reports: Thoughts - Allergies/Home Medications Allergies/Adverse Reactions: Allergies Allergy/AdvReac Type Severity Reaction Status Date / Time aspirin Allergy Unknown Verified 10/13/18 10:49 Reaction Details clozapine [From Clozaril] Allergy See Comment Verified 11/15/17 16:57 NSAIDS (Non-Steroidal Allergy Bleeding Verified 11/15/17 16:57 Anti-Inflamma quetiapine Allergy Altered Verified 11/15/17 16:57 Mental Status PMH/Surg Hx/FS Hx/Imm Hx Endocrine/Hematology History: Reports: Hx Diabetes, Hx Anemia, Other Endocrine/ Hematological Disorders - large RBCs per pt Denies: Hx Thyroid Disease Cardiovascular History: Reports: Hx Angina, Hx Hypercholesterolemia, Hx Hypertension Denies: Hx Congestive Heart Failure, Hx Coronary Artery Disease, Hx Myocardial Infarction, Hx Peripheral Vascular Disease, Hx Valvular Heart Disease Respiratory History: Reports: Hx Asthma, Hx Chronic Obstructive Pulmonary Disease (COPD), Hx Pneumonia, Hx Sleep Apnea - NOT USING CPAP ANY MORE, Other Respiratory Problems/Disorders - PNEUMONIA, LAST WINTER GI History: Reports: Hx Gall Bladder Disease, Hx Gastroesophageal Reflux Disease , Hx Gastrointestinal Bleed, Hx Irritable Bowel, Other GI Disorders - hemorroids , frequent constipation Denies: Hx Jaundice, Hx Ulcer History: Reports: Other Problems/Disorders - occassional hesitation, UTI Denies: Hx Renal Disease Musculoskeletal History: Reports: Hx Arthritis, Hx Tendonitis, Other Musculoskeletal History - ankle fs, DDD in neck, 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 Sensory History: Reports: Hx Cataracts - removed, Other Sensory Impairments - LENS IMPLANTS BILATERAL Denies: Hx Contacts or Glasses, Hx Deafness, Hx Hearing Aid Opthamlomology History: Reports: Hx Cataracts - removed, Other Sensory Impairments - LENS IMPLANTS BILATERAL Denies: Hx Contacts or Glasses Neurological History: Reports: Hx Developmental Delay, Other Neuro Impairments/ Disorders - HEAD INJURY AT 4 YEARS OLD Psychiatric History: Reports: Hx Anxiety, Hx Autism, Hx Depression, Hx Post Traumatic Stress Disorder, Hx Inpatient Treatment, Hx Community Mental Health Tx , Hx Bipolar Disorder, Hx Suicide Attempt, Hx of Violent Episodes Against Others , Other Psychiatric Issues/Disorders - mood disorder Denies: Hx Eating Disorder, Hx Schizophrenia - Surgical History Surgery Procedure, Year, and Place: 2003 LEFT ankle FRACTURE [place]. wisdom teeth. 1999 cholecystectomy; . bilateral cataract removal Hx Anesthesia Reactions: No - Immunization History Date of Tetanus Vaccine: unknown Date of Influenza Vaccine: unknown Infectious Disease History: Denies: Hx Clostridium Difficile, Hx Hepatitis, Hx Human Immunodeficiency Virus (HIV), Hx of Known/Suspected MRSA, Hx Shingles, Hx Tuberculosis - Family History Known Family History: Positive: Diabetes - Social History Alcohol Use: None Alcohol Amount: RECOVERING ALCOHOLIC, 2005 Hx Substance Use: No Substance Use Type: Reports: None Hx Tobacco Use: Yes Smoking Status (MU): Heavy Every Day Tobacco Smoker Type: Cigarettes Amount Used/How Often: 1/2 PPD 27 YRS Length of Time of Smoking/Using Tobacco: 30 years Have You Smoked in the Last Year: Yes Review of Systems Positive: Other - Constipation Psychological: Other - Agitation, SI, hallucinations Positive: Anxious All Other Systems Reviewed And Are Negative: Yes Physical Exam - Summary Physical Exam Summary: Constitutional: Well-developed, Well-nourished, Alert. (-) Distressed Skin: Warm, Dry HENT: Normocephalic; Atraumatic Eyes: Conjunctiva normal Neck: Musculoskeletal ROM normal neck. (-) JVD, (-) Stridor, (-) Tracheal deviation Cardio: Rhythm regular, rate normal, Heart sounds normal; Intact distal pulses; Radial pulses are 2+ and symmetric. (-) Murmur Pulmonary/Chest wall: Effort normal. (-) Respiratory distress, (-) Wheezes, (-) Rales Abd: Soft, (-) tenderness, (-) Distension, (-) Guarding, (-) Rebound Musculoskeletal: (-) Edema Lymph: (-) Cervical adenopathy Neuro: Alert, Oriented x3 Psych: Mood and affect Normal Triage Information Reviewed: Yes Vital Signs On Initial Exam: Temp Pulse Resp BP Pulse Ox 98.5 F 92 22 161/96 96 03/13/19 22:03 03/13/19 22:03 03/14/19 00:10 03/13/19 22:03 03/13/19 22:03 Vital Signs Reviewed: Yes Procedures - Sedation Patient Received Moderate/Deep Sedation with Procedure: No Diagnostics - Laboratory Result Diagrams: 03/13/19 22:05 03/13/19 22:47 Lab Statement: Any lab studies that have been ordered have been reviewed, and results considered in the medical decision making process. Course/Dx - Course Course Of Treatment: Patient is here with worsening anxiety and suicidal ideation. Patient was medically cleared by myself. Patient was evaluated by the psychiatric team and they recommended inpatient admission. - Differential Dx/Clinical Impression Provider Diagnosis: Depressive episode Discharge ED - Sign-Out/Discharge Documenting (check all that apply): Patient Departure - Voluntary Admission, per Dr. Leigh, Psychiatry - Discharge Plan Condition: Stable Disposition: PSYCHIATRIC FACILITY-[facility] - Billing Disposition and Condition Condition: STABLE Disposition: Psychiatric Facility [facility] - Attestation Statements Document Initiated by Scribe: Yes Documenting Scribe: Deniz Perez Provider For Whom Rebeca is Documenting (Include Credential): Bradley Macias MD Scribe Attestation: Deniz Burgos, scribed for Bradley Macias MD on 03/14/19 at 0324. Scribe Documentation Reviewed: Yes Provider Attestation: The documentation as recorded by the Deniz dunham accurately reflects the service I personally performed and the decisions made by me, Bradley Macias MD Status of Scribe Document: Viewed
[2019-03-13 22:21] LABS: Urine Appearance Clear; Urine Bilirubin Negative (Negative); Urine Blood Negative (Negative); Urine Color Straw; Urine Glucose 3+(>=500 mg/dL) (Negative); Urine Ketones Negative (Negative); Urine Nitrite Negative (Negative); Urine Protein Negative (Negative); Urine Specific Gravity 1.002 (1.010-1.030); Urine Urobilinogen Negative (Negative)
[2019-03-13 22:27] LABS: ALT 28 U/L (7-52); Albumin 4.6 g/dL (3.2-5.2); Albumin/Globulin Ratio 1.6 (1-3); Alkaline Phosphatase 79 U/L (34-104); BUN/Creatinine Ratio 22.1 (8-20); Blood Urea Nitrogen 17 mg/dL (6-24); CO2 Carbon Dioxide 28 mmol/L (22-32); Calcium 9.8 mg/dL (8.6-10.3); Chloride 99 mmol/L (101-111); EGFR African American 128.4 (>60); EGFR Non-African American 106.1 (>60); Globulin 2.9 g/dL (2-4); Glucose 112 mg/dL (70-100); Sodium 134 mmol/L (135-145); Total Protein 7.5 g/dL (6.4-8.9)
[2019-03-13 22:38] LABS: Urine Benzodiazepine Screen None Detected (None Detect); Urine Opiates Screen None Detected (None Detect)
[2019-03-13 22:38] LABS: Anion Gap 7 mmol/L (2-11)
[2019-03-13 22:51] LABS: Acetaminophen < 15 mcg/mL; Alcohol < 10 mg/dL (<10); Salicylate < 2.50 mg/dL (<30)
[2019-03-14] MEDS ORDERED: LORazepam TAB(*) 1 MG PO ONE ×2 (00:01→10:55)
[2019-03-14] MEDS: Nicotine* 2MG (FRUIT FLAVOR) GUM PO PRN ×6 (06:29→21:25)
[2019-03-14] MEDS: Al Hydrox/Mg Hydrox/Simet LIQ* 30 ML UDC PO PRN (08:33)
[2019-03-14] MEDS: Vitamin THERAPEUTIC TAB PO SCH (08:33)
[2019-03-14] MEDS ORDERED: Albuterol HFA INHALER* 8 gm MDI INH PRN (11:07)
[2019-03-14] MEDS: Docusate CAP* 100 MG PO PRN (11:39)
[2019-03-14] MEDS: Gabapentin CAP(*) 300 MG PO SCH ×3 (11:40→20:32)
[2019-03-14] MEDS: Lisinopril TAB* 5 MG PO SCH (11:41)
[2019-03-14] MEDS: Famotidine TAB* 20 MG PO SCH (11:41)
[2019-03-14] MEDS ORDERED: Dextrose 50% VIAL 50 ml IV PUSH PRN (12:51)
[2019-03-14] MEDS: Bisacodyl EC TAB* 5 MG PO SCH (13:47)
[2019-03-14] MEDS: EMPAGLIFOZIN 25 MG PO SCH (15:18)
[2019-03-14] MEDS: Insulin LISPRO* 1 UNITS UNIT SUBCUT SCH ×2 (17:35→17:40)
[2019-03-14] MEDS: LORazepam TAB(*) 1 MG PO PRN (18:26)
[2019-03-14] MEDS: CMC:Doxepin (NF) 25 MG CAP PO SCH (20:31)
[2019-03-14] MEDS: Hemorrhoidal OINT PR PRN (20:34)
[2019-03-14] MEDS: Insulin GLARGINE(*) 1 UNITS UNIT SUBCUT SCH (20:53)
--- NOTE | 2019-03-14 20:57 | HP ---
HISTORY AND PHYSICAL: DATE OF ADMISSION: 03/14/19 PROVIDER: Kimmie Medina NP, in Psychiatry. SUPERVISING PHYSICIAN: Edward Ochoa MD* (dictated by Kimmie Medina NP). JUSTIFICATION FOR ADMISSION: The patient is in need of 24-hour supervision and care secondary to homicidal ideation. CHIEF COMPLAINT: "I am feeling depressed because I am constipated and I hate living with mentally ill people...I feel like walking into traffic or just stop eating to ." HISTORY OF PRESENT ILLNESS: The patient is a 54-year-old single white male with a history of depression who is brought to the emergency department and is here on a voluntary status after determining that he is very angry and unhappy that he does not like mentally ill people and he feels like he is going to " snap the neck of one of the people he lives with." Gurvinder is very unhappy at this time. He is constipated and states it is driving him crazy. He is angry at his neighbor at the [employer] from [place]. He states that he wants respite from the people he lives with. He states he need some time to get away from it all. Gurvinder typically has these complaints in a cyclical fashion. He gets angry and his frustration tolerance is low. He is chronically complaining of the same things and is struggling with his mental health as well. He sleeps with a great frequency. His interest is low. His energy is low. He has an inability to concentrate. His appetite is good and he is having suicidal and homicidal ideation. DICTATION ENDS HERE KIMMIE MEDINA NP [id number]/[facility] #: [id number] [facility] NETWORKAlicia
[2019-03-15] MEDS: Nicotine* 2MG (FRUIT FLAVOR) GUM PO PRN ×5 (04:24→20:15)
[2019-03-15] MEDS: LORazepam TAB(*) 1 MG PO PRN ×4 (04:24→23:31)
[2019-03-15 07:30] LABS: HDL Cholesterol 28.8 mg/dL
[2019-03-15] MEDS: Insulin LISPRO* 1 UNITS UNIT SUBCUT SCH ×6 (07:46→16:42)
[2019-03-15] MEDS: Insulin GLARGINE(*) 1 UNITS UNIT SUBCUT SCH ×2 (08:13→20:16)
[2019-03-15] MEDS: Mometasone 220 MCG MDI INH SCH ×2 (08:15→17:44)
[2019-03-15] MEDS: Bisacodyl EC TAB* 5 MG PO SCH (08:16)
[2019-03-15] MEDS: Calcium Citrate TAB* 200 MG PO SCH (08:17)
[2019-03-15] MEDS: Vitamin THERAPEUTIC TAB PO SCH (08:17)
[2019-03-15] MEDS: Gabapentin CAP(*) 300 MG PO SCH ×4 (08:18→20:10)
[2019-03-15] MEDS: Atorvastatin* 20 MG TAB PO SCH (08:19)
[2019-03-15] MEDS: Famotidine TAB* 20 MG PO SCH (08:19)
[2019-03-15] MEDS: TESTOSTERONE GEL 25 MG (NF) IN 2.5 GM SIZE PACKET TOPICAL SCH (08:20)
[2019-03-15] MEDS: Lisinopril TAB* 5 MG PO SCH (08:20)
[2019-03-15] MEDS: EMPAGLIFOZIN 25 MG PO SCH (09:39)
[2019-03-15] MEDS: CMC:Doxepin (NF) 25 MG CAP PO SCH (20:12)
[2019-03-16] MEDS: LORazepam TAB(*) 1 MG PO PRN ×3 (04:49→18:14)
[2019-03-16] MEDS: Nicotine* 2MG (FRUIT FLAVOR) GUM PO PRN ×3 (04:49→18:14)
[2019-03-16] MEDS: Docusate CAP* 100 MG PO PRN (04:51)
[2019-03-16] MEDS: Insulin GLARGINE(*) 1 UNITS UNIT SUBCUT SCH ×2 (07:55→20:42)
[2019-03-16] MEDS: Insulin LISPRO* 1 UNITS UNIT SUBCUT SCH ×7 (07:55→17:34)
[2019-03-16] MEDS: Gabapentin CAP(*) 300 MG PO SCH ×4 (08:18→20:03)
[2019-03-16] MEDS: Atorvastatin* 20 MG TAB PO SCH (08:18)
[2019-03-16] MEDS: Bisacodyl EC TAB* 5 MG PO SCH (08:19)
[2019-03-16] MEDS: Calcium Citrate TAB* 200 MG PO SCH (08:19)
[2019-03-16] MEDS: TESTOSTERONE GEL 25 MG (NF) IN 2.5 GM SIZE PACKET TOPICAL SCH (08:20)
[2019-03-16] MEDS: Lisinopril TAB* 5 MG PO SCH (08:20)
[2019-03-16] MEDS: Famotidine TAB* 20 MG PO SCH (08:20)
[2019-03-16] MEDS: Vitamin THERAPEUTIC TAB PO SCH (08:20)
[2019-03-16] MEDS: EMPAGLIFOZIN 25 MG PO SCH (08:42)
[2019-03-16] MEDS: Hemorrhoidal OINT PR PRN (10:07)
--- NOTE | 2019-03-16 10:41 | PN ---
Subjective - Subjective Date of Service: 03/16/19 Service Type: [id number] Hosp care 15 min low complexity Subjective: Gurvinder reports he is no longer suicidal as he says he was before admission. He reports he was suicical in part due to his GI problem (constipation). He reports he has had a bowel movement since admission, and is only mildly constipated now. He reports he did not actually want to snap anyone's neck or otherwise hurt someone, but reported he was frustrated at the behaviors of a coresident at his [facility] with his "Nazi ranting." Denies that there was any physical confrontation with this person, but reports because this individual got too close to him he felt he might have to act in self-defense and hurt him. Reports director did not do anything about this when he asked her too, but his report of this was indirect and required multiple clarifying inquiries that still left the matter in uncertainty. Objective - General Observations Appearance: Disheveled Appears Stated Age: Yes Stature: WNL Posture: WNL Eye Contact: Average Behavior/Activity: WNL - Interaction Observations Attitude Towards Examiner: Cooperative Stated Mood: Euthymic - "it's fine ... lazy" Affect: Full Speech Pattern/Tone: Normal Volume, Rambling, Perseverating - with odd enuciation impairing understanding somewhat Thought Process: Goal Directed, Circumstantial, Fallon Perception: WNL Thought Content: WNL Hallucination Type: None Delusion Type: None - Cognitive Function Orientation: A&O x 4 Level of Consciousness: Awake, Alert, Appropriate Cognition: Impaired Ability to Abstract - as evidenced by concrete interpretation of "a rolling stone gathers no davis" despite hints toward wider interpretation Estimated Intelligence: Borderline Range Insight: Mostly Blames Others for Problems Judgment Within Normal Limits: No Ability to Make Reasonable Decisions: Moderately Impaired - Medication Compliance Cooperative with Inpatient Medication Regimen: Yes - Group Participation Participates in Group Activities: Yes Assessment - Assessment Merits Inpatient Hospitalization: For Stabilization, Consolidate Improvements, For Discharge Planning Inpatient DSM-V Dx: F84.0 Clinical Impression: Mr. Bryant was admitted due to safety concerns raised by report of suicidality and homicidality. He reports now having neither. He has remained on outpatient med regimen. He reports attending groups and having benefited from this admission. His blood sugars have been in the 200's - Jardiance has not been available at the inpatient pharmacy, so he has been on Lantus and SSI coverage here. He reports he feels safe to discharge now anticipating support of AA meetings and [facility] staff. Plan - Plan Treatment Plan: Name: GURVINDER BRYANT Birthdate: 1965 [id number] Continue current meds. Monitor behavior for assessment and safety. Discharge planning to include coordination with [facility] staff, with possible placement [facility]. Continued Medication Management: Continue Outpt Medication Medications: Current Medications Al Hydrox/Mg Hydrox/Simethicone (Maalox Plus*) 30 ml PO Q4H PRN PRN Reason: INDIGESTION Last Admin: 03/14/19 08:33 Dose: 30 ml Albuterol (Ventolin Hfa Inhaler*) 1 puff INH Q6H PRN PRN Reason: SOB/WHEEZING Atorvastatin Calcium (Lipitor*) 20 mg PO DAILY [facility] Last Admin: 03/16/19 08:18 Dose: 20 mg Bisacodyl (Dulcolax Ec Tab*) 10 mg PO DAILY [facility] Last Admin: 03/16/19 08:19 Dose: 10 mg Calcium Citrate (Citracal Tab*) 200 mg PO DAILY [facility] Last Admin: 03/16/19 08:19 Dose: 200 mg Dextrose (Dextrose 50% Vial 50 Ml*) 25 ml IV PUSH .FOR FS < 60 - SS PRN PRN Reason: FS < 60 Docusate Sodium (Colace Cap*) 100 mg PO BID PRN PRN Reason: CONSTIPATION Last Admin: 03/16/19 04:51 Dose: 100 mg Doxepin HCl (Doxepin (Nf)) 100 mg PO BEDTIME [facility] Last Admin: 03/15/19 20:12 Dose: 100 mg Empagliflozin (Jardiance) 25 mg PO DAILY [facility] Last Admin: 03/16/19 08:42 Dose: Not Given Famotidine (Pepcid Tab*) 20 mg PO DAILY [facility] Last Admin: 03/16/19 08:20 Dose: 20 mg Fenofibrate (Tricor) 54 mg PO DAILY [facility] Last Admin: 03/16/19 08:20 Dose: 54 mg Gabapentin (Neurontin Cap(*)) 300 mg PO 0800,1200,1700 [facility] Last Admin: 03/16/19 08:18 Dose: 300 mg Gabapentin (Neurontin Cap(*)) 600 mg PO 2100 [facility] Last Admin: 03/15/19 20:10 Dose: 600 mg Insulin Glargine (Lantus(*)) 45 units SUBCUT BID [facility] Last Admin: 03/16/19 07:55 Dose: 45 units Insulin Human Lispro (Humalog*) 10 units SUBCUT AC [facility] Last Admin: 03/16/19 07:55 Dose: 10 units Insulin Human Lispro (Humalog*) 0 units SUBCUT AC [facility]; Protocol Last Admin: 03/16/19 07:55 Dose: 9 units Lisinopril (Prinivil Tab*) 5 mg PO DAILY [facility] Last Admin: 03/16/19 08:20 Dose: 5 mg Lorazepam (Ativan Tab(*)) 1 mg PO Q6H PRN PRN Reason: ANXIETY Last Admin: 03/16/19 04:49 Dose: 1 mg Mometasone Furoate (Asmanex 220 Mcg Mdi *) 2 puff INH QPM [facility] Last Admin: 03/15/19 17:44 Dose: 2 puff Multivitamins (Theragran Tab*) 1 tab PO DAILY [facility] Last Admin: 03/16/19 08:20 Dose: 1 tab Nicotine Polacrilex (Nicotine Gum*) 2 mg PO Q2H PRN PRN Reason: CRAVINGS Last Admin: 03/16/19 04:49 Dose: 2 mg Phenyleph/Shark Oil/Min Oil/Petrol (Preparation H*) 1 applic HI QID PRN PRN Reason: pain/irritation/itching Last Admin: 03/16/19 10:07 Dose: 1 applic Prazosin HCl (Minipress Cap*) 4 mg PO BEDTIME [facility] Last Admin: 03/15/19 20:09 Dose: 4 mg Prazosin HCl (Minipress Cap*) 1 mg PO 1200 [facility] Last Admin: 03/15/19 12:00 Dose: 1 mg Testosterone (Testosterone Gel 25 Mg/2.5 G) 25 mg TOPICAL DAILY [facility] Last Admin: 03/16/19 08:20 Dose: 25 mg - Discharge Plan Discharge Plan: Outpatient Follow Up Outpatient Program: [facility] - with Dr Barrett
[2019-03-16] MEDS ORDERED: Insulin LISPRO* 1 UNITS UNIT SUBCUT ONE (12:33)
[2019-03-16] MEDS ORDERED: Dextrose 50% VIAL 50 ml IV PUSH PRN (12:33)
[2019-03-16] MEDS: Mometasone 220 MCG MDI INH SCH (17:38)
[2019-03-16] MEDS: CMC:Doxepin (NF) 25 MG CAP PO SCH (20:03)
[2019-03-16] MEDS: Al Hydrox/Mg Hydrox/Simet LIQ* 30 ML UDC PO PRN (20:07)
[2019-03-17] MEDS: LORazepam TAB(*) 1 MG PO PRN ×2 (02:40→07:53)
[2019-03-17] MEDS: Nicotine* 2MG (FRUIT FLAVOR) GUM PO PRN ×2 (05:40→07:53)
[2019-03-17] MEDS: Al Hydrox/Mg Hydrox/Simet LIQ* 30 ML UDC PO PRN (05:40)
[2019-03-17] MEDS: Hemorrhoidal OINT PR PRN (06:30)
[2019-03-17] MEDS: Bisacodyl EC TAB* 5 MG PO SCH (07:57)
[2019-03-17] MEDS: Atorvastatin* 20 MG TAB PO SCH (08:39)
[2019-03-17] MEDS: Famotidine TAB* 20 MG PO SCH (08:39)
[2019-03-17] MEDS: Vitamin THERAPEUTIC TAB PO SCH (08:40)
[2019-03-17] MEDS: Lisinopril TAB* 5 MG PO SCH (08:40)
[2019-03-17] MEDS: Calcium Citrate TAB* 200 MG PO SCH (08:40)
[2019-03-17] MEDS: Gabapentin CAP(*) 300 MG PO SCH (08:41)
[2019-03-17] MEDS: Insulin GLARGINE(*) 1 UNITS UNIT SUBCUT SCH (09:03)
[2019-03-17] MEDS: Insulin LISPRO* 1 UNITS UNIT SUBCUT SCH ×2 (09:05→09:06)
[2019-03-17] MEDS: EMPAGLIFOZIN 25 MG PO SCH (09:07)
[2019-03-17 09:16] VITALS: BP 125/80
--- NOTE | 2019-03-17 21:14 | CONS ---
HOSPITAL MEDICINE CONSULTATION REPORT: DATE OF CONSULT: 03/17/19 PROVIDER: Abena Rosario NP ATTENDING PROVIDER: Kimmie Medina NP. CONSULTING PHYSICIAN: Dr. Genoveva Perez (dictated by Abena Rosario NP). REASON FOR CONSULT: Hyperglycemia. HISTORY OF PRESENT ILLNESS: Mr. Collins is a 54-year-old male with a past medical history of depression, hypertension, hyperlipidemia, type 2 diabetes, history of urinary retention, who is admitted to [facility] for a homicidal ideation. The patient is being treated in mental health unit for his homicidal ideation and it was noted that the patient was having elevated blood sugars in the 300s, so Hospital Medicine was asked to see and evaluate the patient in consultation. PAST MEDICAL HISTORY: Significant for: 1. Type 2 diabetes, insulin-dependent x5 years. 2. Hypertension. 3. Hyperlipidemia. 4. Depression. 5. Posttraumatic stress disorder. 6. History of urinary retention. PAST SURGICAL HISTORY: 1. Ankle fracture repair in 2005. 2. Cholecystectomy. 3. [place] teeth removal. HOME MEDICATIONS: 1. Famotidine 20 mg p.o. daily. 2. Insulin lispro 75/25, 70 units b.i.d. 3. Doxepin 100 mg at bedtime. 4. Minipress 4 mg at bedtime. 5. Minipress 1 mg at 12 p.m. 6. TriCor 54 mg p.o. daily. 7. Pravastatin 40 mg p.o. daily. 8. MiraLAX 17 g p.o. daily p.r.n. constipation. 9. Bactroban 2% topically as needed. 10. Albuterol/Combivent Respimat 1 inhaled four times a day. 11. Nicotine inhaler 10 mg every 2 hours as needed. 12. Fluticasone 2 puffs every day. 13. Benadryl 25 mg p.o. t.i.d. p.r.n. 14. Acetaminophen 325 mg p.o. q.6 hours as needed. 15. Testosterone gel 25 mg topically daily. 16. Methylcellulose 1 g p.o. daily. 17. Vitamin B complex 1 tab p.o. daily. 18. Fluticasone nasal spray 1 spray both nares daily. 19. Docusate 100 mg p.o. b.i.d. 20. Hydroxyzine 25 mg p.o. b.i.d. p.r.n. 21. Lisinopril 5 mg p.o. q.a.m. 22. Cyclobenzaprine 10 mg p.o. daily p.r.n. 23. Gabapentin 600 mg at bedtime. 24. Gabapentin 300 mg p.o. t.i.d. 25. Jardiance 25 mg p.o. daily. 26. Aspirin 81 mg p.o. daily. ALLERGIES: ASPIRIN, CLOZARIL, NSAIDS, and QUETIAPINE. FAMILY HISTORY: Positive for depression with mother. Alcohol abuse and ADHD with other relatives. Mother with hypertension. SOCIAL HISTORY: The patient smokes a half a pack a day. He denies any alcohol or illicit drug use. Surrogate decision maker in the event he is unable to make his own decisions is his mother. He is a full code. REVIEW OF SYSTEMS: The patient denies any fever or chills. He does report occasional nausea and 1 episode of diarrhea yesterday. Denies any abdominal pain. Denies any chest pain or shortness of breath. Denies any cough, hemoptysis and denies any edema. No gross hematuria, dysuria, focal weakness, sensory loss, or visual complaints. Denies any dysphagia, arthralgias, myalgias , rashes, lesions, open sores. PHYSICAL EXAM: General: At this time, Mr. Collins is alert and oriented, sitting in the chair. He is in no acute distress. Vital Signs: Blood pressure 125/80, heart rate 100, respirations 16, O2 saturation 95%, temperature was 98.1. HEENT: Head is atraumatic, normocephalic. Eyes: EOMs are intact. Sclerae anicteric and not pale. Oral mucosa is moist. Neck is supple. Lungs are clear to auscultation bilaterally. No wheezes, rales, or rhonchi. Cardiac: S1, S2. Regular rate and rhythm. No murmurs, rubs, or gallops. Abdomen is soft and nontender. Bowel sounds are present x4. Extremities: He is able to move all 4 extremities. There is no clubbing or cyanosis. Neurologic: He is awake, alert, oriented x3. His speech is clear. Thought process is intact. He is calm. At this time, he is a little dishevelled. Skin is intact. DIAGNOSTIC STUDIES/LAB DATA: On 03/13/19, WBCs 8.9, RBCs 4.70, hemoglobin 16.6 , hematocrit was 46, platelet count was 172. Sodium 134, chloride 99, carbon dioxide was 28, anion gap was 7, BUN was 17, creatinine 0.77, glucose was 112. ASTs not reported, bilirubin 0.40, calcium 9.8, ALTs were 28, alkaline phosphatase was 79, albumin was 4.6. Urine was within normal limits with exception of specific gravity that was 1.002 and glucose was 3+. Urine toxicology: Salicylates, acetaminophen, and serum alcohol were all negative and urine tox was negative for barbiturates, cocaine, benzodiazepines, amphetamines, and cannabinoids. IMPRESSION AND PLAN: Mr. Collins is a 54-year-old male who was admitted to behavioral health unit for homicidal ideation. Our recommendations are as follows: 1. Homicidal ideation. Management per Psychiatry. 2. Type 2 diabetes. The patient currently takes Humalog 75/25, 70 units b.i.d. I would recommend he resume his Humalog upon discharge today and resume his Jardiance. He should follow up with his primary care provider if he has further elevations in his blood sugar for further recommendations on adjustments as needed. I suspect that his elevation in blood sugar during this hospitalization was the patient does report that he had his blood sugar checked after eating breakfast this morning and he has been placed on a lower than his usual dose of insulin. I would recommend resuming his home insulin diabetic management upon discharge today. 3. Other chronic medical issues. I would resume his home medications as previously prescribed. TIME SPENT: Time spent on this consultation was 45 minutes, greater than half that time was spent at the bedside reviewing events leading thus far to his hospitalization, performing physical exam, and reviewing my plan of care. I have discussed this with my attending, Dr. Genoveva Perez, and she is in agreement with my plan. ABENA ROSARIO, JEREMIE [id number]/[facility] #: [id number] DONNY
--- NOTE | 2019-03-18 12:30 | HP ---
HISTORY AND PHYSICAL: ADDENDUM: DATE OF ADMISSION: 03/14/19 This is approximately the fifth lifetime inpatient psychiatric admission for Gurvinder. He had 2 inpatient admissions 11 to12 years ago and his most recent admission here was in September 2018. Before that, he w as in here in November 2017. He gets outpatient care at [facility] with Alicia Barrett and with Deniz Solitario RN. He denies a history of previous suicide attempts or freddie f- injurious behavior or violent behavior, but notes indicate that he has a history of aggressive beh avior when he is in a decompensated state. PAST MEDICAL HISTORY: It is remarkable for type 2 diabetes, anemia, angina, hypercholesterolemia, hy pertension, erectile dysfunction, low testosterone level, obstructive sleep apnea, COPD, and asthma. He is followed by Dr. Chinmay Pinto. MEDICATION HISTORY: He has had past trials of Latuda, clozapine, and quetiapine. They were all disco ntinued because they were worsening his diabetes. Current medications include: 1. Albuterol inhaler 1 puff q.6 hours p.r.n. shortness of breath or wheezing. 2. Atorvastatin 20 mg daily. 3. Dulcolax 10 mg daily. 4. Citracal 200 mg daily. 5. Colace 100 mg p.o. b.i.d. p.r.n. constipation. 6. Doxepin 100 mg at bedtime. 7. Jardiance 25 mg daily, which was not available in the hospital. 8. Famotidine 20 mg daily. 9. TriCor 54 mg daily. 10. Neurontin 300 mg daily at 0800, 1200, and 0500. 11. Gabapentin 600 mg at bedtime. 12. Insulin Lantus 45 units b.i.d. 13. Insulin lispro 10 units subcutaneously before meals and a sliding scale to go along with that. 14. Lisinopril 5 mg daily. 15. Lorazepam 1 mg q.6 hours p.r.n. anxiety while in the hospital. 16. Mometasone furoate 2 puffs inhalations q.p.m. scheduled. 17. Multivitamin. 18. Nicotine gum. 19. Preparation H. 20. Prazosin 1 mg at noon. 21. Prazosin 4 mg at bedtime. 22. Testosterone 25 mg topical daily. FAMILY HISTORY: Positive family history of depression in his biological mother, history of alcohol a buse and ADHD in relatives on both sides. PERSONAL AND SOCIAL HISTORY: He was born in [place], [place], from parents who have since . He has 2 older brothers, both are gas appliance adjuster. His mother lives somewhere in [place] and he is unaware of his father's whereabouts. He reports not having close contact with his relatives. He graduated from high school. He did not attend college. 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 He identifies as being homosexual, he reports like "jahairain g young males," but denies sexual activity in the past 19 years. He does admit to difficulty masturba ting because of low testosterone and side effects of psychotropic medications he is taking. MEDICAL SYMPTOMS: Obesity, diabetes. REVIEW OF SYSTEMS: The patient reports feeling fatigued. He denies shortness of breath, heat or col d intolerance, chest pain or abdominal pain. He denies neurological symptoms. He denies fevers or c hanges in weight. PHYSICAL EXAMINATION CONSTITUTIONAL: Well developed, well nourished, alert and not distressed. VITAL SIGNS: On 03/15/19 at 0800, his temperature was 98.4, pulse 89, respirations 14, O2 sat on shawn m air 95, blood pressure 125/83. HEENT: Normocephalic, atraumatic. Eyes: Conjunctiva normal. NECK: No JVD. No stridor. No tracheal deviation. PULMONARY: Chest wall effort normal. No respiratory distress. No wheezes. No rales. CARDIO: Regular rhythm and rate normal. Heart sounds normal. Intact distal pulses. Radial pulses are 2+ and symmetric. No murmur. ABDOMEN: Soft. No tenderness. No distention. No guarding. No rebound. MUSCULOSKELETAL: Range of motion normal. No edema. LYMPHS: No cervical adenopathy. NEURO: Alert and oriented x4. SKIN: Warm and dry DIAGNOSTIC STUDIES/LAB DATA: Most data are within normal limits. MCV is 99. MCH is 35. His gluco se was consistently elevated. His hemoglobin A1c is 8.6. His triglycerides are 503, cholesterol 190 , LDL cholesterol direct 89, HDL cholesterol 28.8. Urine specific gravity is 1.002. Urine glucose i s 3+. Toxicology screen shows no drugs of abuse. MENTAL STATUS EXAM: Gurvinder is a somewhat obese 54-year-old white male with short blond hair. He is po prakash groomed and unshaven and he is wearing [facility] scrubs. He is cooperative, but deman ding. He makes fair eye contact. His speech is pressured, but understandable. His affect is sad. H is mood is dysphoric. Thoughts are linear and goal directed. He denied auditory or visual hallucina tions. He states he is not suicidal. He states he is no longer homicidal, that that was mostly to g et into the hospital. He is oriented to time, place, and person. His insight and judgment are poor. Impulse control is adequate. Attention, memory, and concentration are fair. Fund of knowledge is adequate and intelligence is estimated in the borderline range. 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 Medical history is remarkable for erectile dysfunction, COPD, asthma, obstructive sleep apnea, h ypertension, hypercholesterolemia, and diabetes. He reports a family history of depression, alcoholi sm, and ADHD in relatives, but no completed suicide. He describes stressors of dissatisfaction with h is living conditions at the [facility]. He longs for a relationship and he feels socially isolated at times and does not like being around mentally ill people. TREATMENT PLAN: Admit to Mental Health, 15-minute checks, full code status. Legal status is volunta ry. Initiate comprehensive milieu, individual and group psychotherapy supports, medication managemen t. We will continue his outpatient regimen of medications. He will be encouraged to attend all prog ramming while admitted. Discharge planning will involve with coordination of his aftercare with [facility] and with [facility]. EARLENE CANO, JEREMIE [id number]/[facility] #: [id number]
== END 2019-03-17 11:34 | disposition home or self-care (01) | DRG 884 ==
LOC: ED 21:55 → BSU 03-14 02:41
PROVIDERS: ADMIT Psychiatry & Neurology Psychiatry; ATTEND Psychiatry & Neurology Psychiatry
DX: F84.0 Autistic disorder (principal); R45.851 Suicidal ideations; R45.850 Homicidal ideations; F32.9 Major depressive disorder, single episode, unspecified; E78.5 Hyperlipidemia, unspecified; I10 Essential (primary) hypertension; F43.10 Post-traumatic stress disorder, unspecified; E11.65 Type 2 diabetes mellitus with hyperglycemia; F17.210 Nicotine dependence, cigarettes, uncomplicated; Z79.4 Long term (current) use of insulin; Z79.84 Long term (current) use of oral hypoglycemic drugs; Z79.1 Long term (current) use of non-steroidal anti-inflammatories (NSAID); Z79.82 Long term (current) use of aspirin; Z79.890 Hormone replacement therapy; Z79.51 Long term (current) use of inhaled steroids; Z79.899 Other long term (current) drug therapy; Z88.6 Allergy status to analgesic agent; Z88.8 Allergy status to other drugs, medicaments and biological substances; Z81.8 Family history of other mental and behavioral disorders; Z81.1 Family history of alcohol abuse and dependence; Z82.49 Family history of ischemic heart disease and other diseases of the circulatory system
CPT/HCPCS: 36415; 80053; 80061; 80307; 80320; 80329; 81003; 82947; 83036; 83721; 85025; 99222; 99231; 99238; 99285; A9270-GY; G0480

== ENCOUNTER 2019-05-16 16:22 | Emergency (ER) | payer MEDICARE, MEDICAID ==
--- NOTE | 2019-05-16 16:37 | ED ---
HPI Chest Pain - HPI Summary HPI Summary: 54-year-old male with significant past medical history of diabetes, anxiety depression, COPD, tobacco use presents to the emergency department today complaining of chest pain for approximately 1 hour as well as as well as difficulty with urination and rectal pain and bleeding over the last few weeks. Patient states he was recently given antibiotics for a "chest infection". Patient denies associated symptoms such as exertional chest pain, lightheadedness, changes in vision, fever. Patient states he has associated shortness of breath, arm pain, jaw pain with his chest pain which she describes as a 3 out of 10 pressure diffusely oriented throughout the chest. Patient states due to his symptoms he believes he is having suicidal ideation and requests mental health evaluation today. Patient denies homicidal ideation. Patient is otherwise well and denies fever, nausea, vomiting, diarrhea, rash, pain with urination. Patient's last echocardiogram and stress test was approximately 2 years ago. - History of Current Complaint Chief Complaint: EDGeneral Time Seen by Provider: 05/16/19 16:26 Hx Obtained From: Patient Onset/Duration: Started Hours Ago Timing: Constant Initial Severity: Moderate Current Severity: Moderate Pain Intensity: 8 Pain Scale Used: 0-10 Numeric Chest Pain Location: Diffuse Chest Pain Radiates: Yes Chest Pain Radiates To:: Arm, Jaw Character: Pressure/Squeezing Associated Signs and Symptoms: Positive: Chest Pain, Anxiety, Shortness of Breath, Abdominal Pain - Additional Pertinent History Primary Care Physician: [id number] - Allergy/Home Medications Allergies/Adverse Reactions: Allergies Allergy/AdvReac Type Severity Reaction Status Date / Time aspirin Allergy Unknown Verified 10/13/18 10:49 Reaction Details clozapine [From Clozaril] Allergy See Comment Verified 11/15/17 16:57 NSAIDS (Non-Steroidal Allergy Bleeding Verified 11/15/17 16:57 Anti-Inflamma quetiapine Allergy Altered Verified 11/15/17 16:57 Mental Status Home Medications: Home Medications Docusate CAP* [Colace Cap*] 100 mg PO BID 08/02/12 [History Confirmed 05/16/19] Lisinopril TAB* [Prinivil TAB 5 MG*] 5 mg PO QAM 06/09/13 [History Confirmed ] Aspirin EC TAB* [Ecotrin EC Low Dose 81 MG*] 81 mg PO DAILY 11/07/17 [History Confirmed 05/16/19] Fluticasone HFA 220 mcg(NF) [Flovent Hfa 220 Mcg(NF)] 2 puff INH DAILY 11/07/17 [History Confirmed 05/16/19] Gabapentin CAP(*) [Neurontin 300 CAP(*)] 300 mg PO TID 11/07/17 [History Confirmed 05/16/19] Pravastatin (NF) [Pravachol (NF)] 40 mg PO DAILY 11/07/17 [History Confirmed ] diPHENhydraMINE PO* [Benadryl PO 25 MG TAB*] 25 mg PO TID PRN 11/07/17 [History Confirmed 05/16/19] Cyclobenzaprine TAB* [Flexeril 10 MG TAB*] 10 mg PO DAILY PRN #7 tab 11/28/17 [ Rx Confirmed 05/16/19] Empaglifozin (NF) [Jardiance] 25 mg PO DAILY #7 tablet 11/28/17 [Rx Confirmed ] Fluticasone NASAL SPRAY 50MCG* [Flonase NASAL SPRAY 50MCG*] 1 spray BOTH NARES DAILY #1 btl 11/28/17 [Rx Confirmed 05/16/19] Gabapentin CAP(*) [Neurontin 300 CAP(*)] 600 mg PO BEDTIME #28 cap 11/28/17 [Rx Confirmed 05/16/19] Prazosin 1 mg CAP [Minipress 1 mg CAP] 4 mg PO BEDTIME #56 cap 11/28/17 [Rx Confirmed 05/16/19] hydrOXYzine HCL TAB* [Atarax 25 MG TAB*] 25 mg PO BID PRN #28 tab 11/28/17 [Rx Confirmed 05/16/19] Fenofibrate [Tricor] 54 mg PO DAILY 30 Days tab 10/15/18 [Rx Confirmed 05/16/19 ] Acetaminophen TAB* [Tylenol TAB*] 325 mg PO Q6H PRN 01/08/19 [History Confirmed 05/16/19] Albuterol/Ipratropium RESP(NF) [Combivent Respimat (NF)] 1 aer INH QID 03/13/19 [History Confirmed 05/16/19] Clotrimazole 1% TOPICAL (NF) [Lotrimin 1% TOPICAL (NF)] 1 applic TOPICAL BID [History Confirmed 05/16/19] Doxepin (NF) 100 mg PO BEDTIME 03/13/19 [History Confirmed 05/16/19] Famotidine TAB* [Pepcid 20 MG TAB*] 20 mg PO DAILY 03/13/19 [History Confirmed 05/16/19] Insulin Lispro Protamin/Lispro [Humalog Mix 75-25 Kwikpen 3 ml x 5 Pens] 1 inj SUBCUT .UP TO 200U DAILY MDD 200 unit 03/13/19 [History Confirmed 05/16/19] Methylcellulose (with Sugar) [Citrucel Powder] 1 gm PO DAILY 03/13/19 [History Confirmed 05/16/19] Mupirocin 2% OINT* [Bactroban 2 % Oint*] 1 applic TOPICAL BID PRN 03/13/19 [ History Confirmed 05/16/19] Nicotine Inhaler* (NF) [Nicotine Inhaler*] 10 mg INH Q2H PRN 03/13/19 [History Confirmed 05/16/19] Polyethylene Glycol 3350* [Miralax (17 GM DOSE HERMELINDA)] 17 gm PO DAILY PRN [History Confirmed 05/16/19] Prazosin 1 mg CAP [Minipress 1 mg CAP] 1 mg PO 1200 03/13/19 [History Confirmed 05/16/19] Testosterone Gel 25 mg (Nf) [Testosterone Gel 25 mg/2.5 g] 25 mg TOPICAL DAILY 03/13/19 [History Confirmed 05/16/19] Vit B Comp/C/FA/Iron Sulf/Shannon [Stress Formula with Iron Tab] 1 tab PO DAILY [History Confirmed 05/16/19] Tobramycin/Dexameth OPTH.SUSP* [Tobradex 0.3-0.1%*] 1 drop BOTH EYES Q6HR [History Confirmed 05/16/19] PMH/Surg Hx/FS Hx/Imm Hx Endocrine/Hematology History: Reports: Hx Diabetes, Hx Anemia, Other Endocrine/ Hematological Disorders - large RBCs per pt Denies: Hx Thyroid Disease Cardiovascular History: Reports: Hx Angina, Hx Hypercholesterolemia, Hx Hypertension Denies: Hx Congestive Heart Failure, Hx Coronary Artery Disease, Hx Myocardial Infarction, Hx Peripheral Vascular Disease, Hx Valvular Heart Disease Respiratory History: Reports: Hx Asthma, Hx Chronic Obstructive Pulmonary Disease (COPD), Hx Pneumonia, Hx Sleep Apnea - NOT USING CPAP ANY MORE, Other Respiratory Problems/Disorders - PNEUMONIA, LAST WINTER GI History: Reports: Hx Gall Bladder Disease, Hx Gastroesophageal Reflux Disease , Hx Gastrointestinal Bleed, Hx Irritable Bowel, Other GI Disorders - hemorroids , frequent constipation Denies: Hx Jaundice, Hx Ulcer History: Reports: Other Problems/Disorders - occassional hesitation, UTI Denies: Hx Renal Disease Musculoskeletal History: Reports: Hx Arthritis, Hx Tendonitis, Other Musculoskeletal History - ankle fs, DDD in neck, 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 Sensory History: Reports: Hx Cataracts - removed, Hx Contacts or Glasses, Other Sensory Impairments - LENS IMPLANTS BILATERAL Denies: Hx Deafness, Hx Hearing Aid Opthamlomology History: Reports: Hx Cataracts - removed, Hx Contacts or Glasses , Other Sensory Impairments - LENS IMPLANTS BILATERAL Neurological History: Reports: Hx Developmental Delay, Other Neuro Impairments/ Disorders - HEAD INJURY AT 4 YEARS OLD Psychiatric History: Reports: Hx Anxiety, Hx Autism, Hx Depression, Hx Post Traumatic Stress Disorder, Hx Inpatient Treatment, Hx Community Mental Health Tx , Hx Bipolar Disorder, Hx Suicide Attempt, Hx of Violent Episodes Against Others , Other Psychiatric Issues/Disorders - mood disorder Denies: Hx Eating Disorder, Hx Schizophrenia - Surgical History Surgery Procedure, Year, and Place: 2003 LEFT ankle FRACTURE [place]. wisdom teeth. 1999 cholecystectomy; [place]. bilateral cataract removal Hx Anesthesia Reactions: No - Immunization History Date of Tetanus Vaccine: unknown Date of Influenza Vaccine: unknown Infectious Disease History: No Infectious Disease History: Denies: Hx Clostridium Difficile, Hx Hepatitis, Hx Human Immunodeficiency Virus (HIV), Hx of Known/Suspected MRSA, Hx Shingles, Hx Tuberculosis, Traveled Outside the [place] in Last 30 Days - Family History Known Family History: Positive: Diabetes - Social History Alcohol Use: Rare Alcohol Amount: RECOVERING ALCOHOLIC, 2005 Hx Substance Use: No Substance Use Type: Reports: None Substance Use Comment - Amount & Last Used: staes he hasn't used in years Hx Tobacco Use: Yes Smoking Status (MU): Current Every Day Smoker Type: Cigarettes Amount Used/How Often: 1/2 PPD 27 YRS Length of Time of Smoking/Using Tobacco: 30 years Have You Smoked in the Last Year: Yes Review of Systems Constitutional: Negative Eyes: Negative ENT: Negative Positive: Chest Pain Positive: Shortness Of Breath, Cough Positive: Abdominal Pain Genitourinary: Negative Musculoskeletal: Negative Skin: Negative Neurological/Mental Status: Negative Positive: Anxious, Depressed All Other Systems Reviewed And Are Negative: Yes Physical Exam - Summary Physical Exam Summary: Patient is in no acute distress. No signs of trauma or obvious deformity. Patient has flat affect and does not make eye contact and conversation. Triage Information Reviewed: Yes Vital Signs On Initial Exam: Initial Vitals Temp Pulse Resp BP Pulse Ox 98 F 94 17 102/75 95 05/16/19 16:28 05/16/19 16:28 05/16/19 16:28 05/16/19 16:28 05/16/19 16:28 Vital Signs Reviewed: Yes Appearance: Positive: Well-Appearing, No Pain Distress, Well-Nourished Skin: Positive: Warm, Skin Color Reflects Adequate Perfusion Eyes: Positive: EOMI, [place] ENT: Positive: Hearing grossly normal Respiratory/Lung Sounds: Positive: Clear to Auscultation, Breath Sounds Present Cardiovascular: Positive: RRR, S1, S2 Abdomen Description: Positive: Nontender, Soft Bowel Sounds: Positive: Present Musculoskeletal: Positive: Strength/ROM Intact Neurological: Positive: Sensory/Motor Intact, Alert, Oriented to Person Place, Time, Normal Gait, Facial Symmetry, Speech Normal Psychiatric: Positive: Normal, Affect/Mood Appropriate AVPU Assessment: Alert Procedures - Sedation Patient Received Moderate/Deep Sedation with Procedure: No Diagnostics - Vital Signs Vital Signs Temp Pulse Resp BP Pulse Ox 05/16/19 16:28 98 F 94 17 102/75 95 - Laboratory Result Diagrams: 05/16/19 17:05 05/16/19 18:59 Lab Statement: Any lab studies that have been ordered have been reviewed, and results considered in the medical decision making process. Chest Pain Course/Dx - Course Course Of Treatment: 54-year-old male was evaluated in the emergency department today for chest pain. Vitals noted and stable. EKG was done promptly which shows no evidence of STEMI. Sinus rhythm at a rate of 93 bpm. Left axis deviation. Normal [place] and QT interval. No T wave inversions or evidence of ischemia. EKG findings are unchanged when compared to priors done on . HEART score 3. Laboratory studies returned showing no significant abnormalities with no leukocytosis, anemia, or electrolyte disturbance. Serial troponins negative for myocardial infarction. Due to patient endorsing suicidal ideation he was evaluated by mental health staff who deemed him fit for discharge with outpatient follow-up. Patient diagnosed with depression not otherwise specified. Patient discharged with outpatient follow-up for chest pain and depression. - Chest Pain Differential Diagnosis/HQI/PQRI: Acute [place], ACS, Angina, Chest Wall - Diagnoses Provider Diagnoses: Depression, Chest pain - Provider Notifications Discussed Care Of Patient With: Abdelrahman Leigh - Finds pt to go for outpatient treatment with a diagnosis of depression unspecified. Discharge ED - Sign-Out/Discharge Documenting (check all that apply): Patient Departure - Discharge Plan Condition: Stable Disposition: HOME Patient Education Materials: Depression (ED) Referrals: Chinmay Pinto MD [Primary Care Provider] - 3 Days Additional Instructions: Per completion of a mental health evaluation, you are cleared for release and do not require inpatient psychiatric hospitalization at this time. Please go to nearest emergency room or call 911 if safety concerns arise or condition worsens. Important Phone Numbers: [facility] ph:[phone] Suicide Prevention and Crisis Services ph:[phone] National Suicide Prevention Lifeline ph:[phone]- NIIV (7151) [facility] ph:[phone] Alcoholics Anonymous ph:[phone] [facility] ph:[phone] [facility] ph:[phone] Recommendation: Follow care plan established by [facility], [place] and [facility]. Return to [facility]. Contact [facility] on Sunday. Return to hospital if symptoms increase/worsen. You were seen in the emergency department today due to chest pain. Cardiac workup was done today including an EKG and blood work which found no evidence of acute pathology requiring intervention at this time. Although I am uncertain what is causing your symptoms cardiac origin cannot be ruled out. Please follow-up with your primary care provider or customer services supervisor in 3 days for further evaluation and management. Please return to this emergency Department immediately if you develop any new or worsening symptoms. - Billing Disposition and Condition Condition: STABLE Disposition: Home
--- OUTSIDE RECORDS SUMMARY | 2019-05-16 17:06 | XMS REPORT ---
:1965 Author Organization [facility] Care Team Providers Name Role Phone Deniz Solitario Primary Care Physician Unavailable Allergies, Adverse Reactions, Alerts Allergy Code CodeSystem Reaction Severity Criticality Status Start Substance Date Moderate Medications Medication Medication Medication Start Stop Route Dose Status Fill Code CodeSystem Date Date Instructions prazosin 210765 RxNorm 2019- oral 2 mg 2 completed Take 2 - 07-25 capsule capsule at at bedtime for bedtime 30 day(s) Aspir-Low 5491205 RxNorm 2016-03 oral 81 mg active for 30 1-26 tablet,d day(s) elayed release (DR/EC) lisinopril 571771 RxNorm oral 5 mg active for 90 6-07 tablet day(s) prazosin 140402 RxNorm oral 2 mg 2 active Take 2 8-13 capsule capsule at at bedtime for bedtime 30 day(s) prazosin 614243 RxNorm 2018-03- oral 1 mg 1 active Take 1 04-14 02-25 capsule capsule once once a a day for 30 day day(s) testosterone 7587135 RxNorm TD 1 % (25 active for 30 6-14 mg/2.5gr day(s) am) gel in packet venlafaxine 364551 RxNorm 2019- oral 75 mg completed for 30 9-17 10-18 capsule, day(s) extended release 24hr Flovent HFA 678893 RxNorm 2016-03 inhl 220 active for 60 0-23 mcg/actu day(s) ation HFA aerosol inhaler prazosin 419809 RxNorm 2019- oral 1 mg completed for 30 4-26 05-26 capsule day(s) venlafaxine 856278 RxNorm 2019- oral 150 mg completed for 30 1-24 04-25 capsule, day(s) extended release 24hr ranitidine HCl 713494 RxNorm 2016-03 oral 150 mg active for 90 0-05 tablet day(s) venlafaxine 754561 RxNorm 2019- oral 75 mg 1 completed Take 1 07-11- capsule, capsule extended every morning release for 30 24hr day(s) every morning prazosin 956742 RxNorm 2019- oral 1 mg completed for 14 9- 06-07 capsule day(s) venlafaxine 257228 RxNorm 2019- oral 75 mg 1 completed Take 1 06-25- capsule, capsule extended every morning release for 30 24hr day(s) every morning prazosin 269261 RxNorm 2019- oral 2 mg completed for 30 08-14 05-08 capsule day(s) prazosin 881192 RxNorm 2019- oral 1 mg 1 completed Take 1 08-23-29 capsule capsule once once a a day for 30 day day(s) gabapentin 814282 RxNorm oral 300 mg active for 30 2-20 capsule day(s) Humalog Mix 951521 RxNorm subQ 100 active for 20 75-25 KwikPen 7-05 unit/mL day(s) (75-25) insulin pen prazosin 296345 RxNorm 2019- oral 1 mg 1 completed Take 1 11-14 11-27 capsule capsule once once a a day for 30 day day(s) venlafaxine 816763 RxNorm 2018-03 2019- oral 37.5 mg completed Take 1 0 11-19 1 capsule capsule, every morning extended for 14 release day(s) 24hr every morning atorvastatin 307919 RxNorm oral 20 mg active for 7 9-12 tablet day(s) doxepin 4462562 RxNorm oral 150 mg active for 90 6-07 capsule day(s) Novolog Mix 797663 RxNorm 20180 subQ 100 active for 84 70-30FlexPen 9-06 unit/mL day(s) U-100 (70-30) insulin pen venlafaxine 935115 RxNorm 2019- oral 150 mg 1 completed Take 1 09-26-17 capsule, capsule extended every morning release for 30 24hr day(s) every morning Problems Problem Name Code CodeSystem Alternate Alternate Start End Status Narrative Code CodeSystem Date Date 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, recurrent, in partial remission Relevant diagnostic tests/laboratory data Narrative No Information Procedures Procedure Code CodeSystem Target Date of Status Service Device Device Device Name Site Procedure Delivery Code Name UID Location Psychotherap 099005 SNOMED-CT () 2018-10-16 complete Mental y, 45 04 d Health- minutes with [place] patient [address], [id number] Psychotherap [id number] SNOMED-CT () 2018-10-24 complete Mental y, 45 04 d Health- minutes with [place] patient [address], [id number] Office [place] [id number] SNOMED-CT () 2018-06-25 complete Mental other 7 d Health- outpatient [place] visit for [address] established [id number] patient, [phone] which requires at least 2 of these 3 redd components: An expanded problem focused history; An expanded problem focused examination; Medical decision making of [place] Office or 370031 SNOMED-CT () 2018-07-24 complete Mental other 7 d Health- outpatient [place] visit for [address], established [id number] patient, [id number] which requires at least 2 of these 3 redd components: An expanded problem focused history; An expanded problem focused examination; Medical decision making of low Office or [id number] SNOMED-CT () 2018-10-17 complete Mental other 7 d Health- outpatient [place] visit for [address] established [id number] patient, [id number] which requires at least 2 of these 3 redd components: An expanded problem focused history; An expanded problem focused examination; Medical decision making of low Office or [id number] SNOMED-CT () 2018-12-03 complete Mental other 7 d Health- outpatient [place] visit for [address], established [id number] patient, [id number] which requires at least 2 of these 3 redd components: An expanded problem focused history; An expanded problem focused examination; Medical decision making of [facility] Office or [id number] SNOMED-CT () 2019-01-03 complete Mental other 7 d Health- outpatient [place] visit for [address], established [id number] patient, [id number] which requires at least 2 of these 3 redd components: An expanded problem focused history; An expanded problem focused examination; Medical decision making of [facility] Office or 499076 SNOMED-CT () 2019-02-04 complete Mental other 6 d Health- outpatient [place] visit for [address], established [id number] patient, [id number] which requires at least 2 of these 3 redd components: A problem focused history; A problem focused examination; [facility] [place] medical decision making. Counselwv Office or [id number] SNOMED-CT () 2018-11-01 complete Mental other 6 d Health- outpatient [place] visit for [address], established [id number] patient, [phone] which requires at least 2 of these 3 redd components: A problem focused history; A problem focused examination; [facility] [place] medical decision making. Counselin SNOMED-CT () 2018-09-09 complete Mental d Health[address], [id number] SNOMED-CT () 2018-10-09 complete Mental d Health[address], [id number] SNOMED-CT () 2019-02-07 complete Mental d Health[address], [id number] SNOMED-CT () 2019-02-10 complete Mental d Health[address], [id number] SNOMED-CT () 2019-02-24 complete Mental d Health[address], [id number] SNOMED-CT () 2019-03-18 complete Mental [address], [id number] [id number] Encounters/Encounter Diagnoses Encounter Name Encounter Diagnosis Diagnosis Diagnosis Date of Service Code Code Name CodeSystem Diagnosis Delivery Location Psychotherapy - [id number] Major SNOMED-CT 2019-03-24 Behavioral Individual 30 depressive Health min disorder, Clinic , , recurrent, , in partial remission Vital Signs No Information Social History Element Description Description Start End Code CodeSystem AdditionalInfo Date Date SexAssignedAtBirth Male 1964-03 M AdministrativeGender 04-08 Hospital Discharge Instructions Reason For Referral Medical Equipment FDA Assessments
--- OUTSIDE RECORDS SUMMARY | 2019-05-16 17:06 | XMS REPORT ---
:1965 Author Organization [facility] Care Team Providers Name Role Phone Deniz Solitario Primary Care Physician Unavailable Allergies, Adverse Reactions, Alerts Allergy Code CodeSystem Reaction Severity Criticality Status Start Substance Date Moderate Medications Medication Medication Medication Start Stop Route Dose Status Fill Code CodeSystem Date Date Instructions Flovent HFA 516269 RxNorm 2016-03 inhl 220 active for 60 0-23 mcg/actu day(s) ation HFA aerosol inhaler gabapentin 743366 RxNorm oral 300 mg active for 30 2-20 capsule day(s) prazosin 521645 RxNorm oral 2 mg 2 active Take 2 8-13 capsule capsule at at bedtime for bedtime 30 day(s) prazosin 918162 RxNorm 2019- oral 2 mg completed for 30 5-29 05-08 capsule day(s) venlafaxine 236456 RxNorm 2019- oral 75 mg 1 completed Take 1 06-25 07-08 capsule, capsule extended every morning release for 30 24hr day(s) every morning Humalog Mix 023859 RxNorm subQ 100 active for 20 75-25 KwikPen 7-05 unit/mL day(s) (75-25) insulin pen doxepin 2205267 RxNorm oral 150 mg active for 90 6-07 capsule day(s) Aspir-Low 4746778 RxNorm 2016-03 oral 81 mg active for 30 1-26 tablet,d day(s) elayed release (DR/EC) atorvastatin 586719 RxNorm oral 20 mg active for 7 9-12 tablet day(s) venlafaxine 377741 RxNorm 2019- oral 75 mg 1 completed Take 1 07-11 08-01 capsule, capsule extended every morning release for 30 24hr day(s) every morning lisinopril 639391 RxNorm 2018-0 oral 5 mg active for 90 6-07 tablet day(s) venlafaxine 705695 RxNorm 2019- oral 75 mg completed for 30 9-17 10-18 capsule, day(s) extended release 24hr testosterone 3097463 RxNorm TD 1 % (25 active for 30 6-14 mg/2.5gr day(s) am) gel in packet ranitidine HCl 712179 RxNorm 2016-03 oral 150 mg active for 90 0-05 tablet day(s) venlafaxine 944334 RxNorm 2018-03 2019- oral 37.5 mg completed Take 1 0-18 11-19 1 capsule capsule, every morning extended for 14 release day(s) 24hr every morning Novolog Mix 407902 RxNorm subQ 100 active for 84 70-30FlexPen 9-06 unit/mL day(s) U-100 (70-30) insulin pen venlafaxine 805596 RxNorm 2019- oral 150 mg completed for 30 1-24 04-25 capsule, day(s) extended release 24hr venlafaxine 065394 RxNorm 2019- oral 150 mg 1 completed Take 1 7 09-17 capsule, capsule extended every morning release for 30 24hr day(s) every morning prazosin 403280 RxNorm 2018-03- oral 1 mg 1 active Take 1 27 02-25 capsule capsule once once a a day for 30 day day(s) prazosin 681554 RxNorm 2019- oral 1 mg completed for 14 9-12 06-07 capsule day(s) prazosin 847875 RxNorm 2019- oral 1 mg completed for 30 4- 05-26 capsule day(s) prazosin 665309 RxNorm 2019- oral 1 mg 1 completed Take 1 29 11-27 capsule capsule once once a a day for 30 day day(s) prazosin 352614 RxNorm 2019- oral 1 mg 1 completed Take 1 6- 08-29 capsule capsule once once a a day for 30 day day(s) prazosin 306477 RxNorm 2018- oral 2 mg 2 completed Take 2 07-12 07-25 capsule capsule at at bedtime for bedtime 30 day(s) Problems Problem Name Code CodeSystem Alternate Alternate Start End Status Narrative Code CodeSystem Date Date 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, recurrent, in partial remission Relevant diagnostic tests/laboratory data Narrative No Information Procedures Procedure Code CodeSystem Target Date of Status Service Device Device Device Name Site Procedure Delivery Code Name UID Location Psychotherap [id number] SNOMED-CT () 2018-10-16 complete Mental y, 45 04 d Health- minutes with [place] patient [address], [id number] Psychotherap [id number] SNOMED-CT () 2018-10-24 complete Mental y, 45 04 d Health- minutes with [place] patient [address], [id number] [phone] Office [place] [id number] SNOMED-CT () 2018-06-25 complete Mental other 7 d Health- outpatient [place] visit for [address] established [id number] patient, [phone] which requires at least 2 of these 3 redd components: An expanded problem focused history; An expanded problem focused examination; Medical decision making of [place] Office or [id number] SNOMED-CT () 2018-07-24 complete Mental other 7 d Health- outpatient [place] visit for [address] established [id number] patient, [phone] which requires at least 2 of these 3 redd components: An expanded problem focused history; An expanded problem focused examination; Medical decision making of [place] Office or [id number] SNOMED-CT () 2018-10-17 complete Mental other 7 d Health- outpatient [place] visit for [address] established [id number] patient, [phone] which requires at least 2 of these 3 redd components: An expanded problem focused history; An expanded problem focused examination; Medical decision making of low Office or [id number] SNOMED-CT () 2018-12-03 complete Mental other 7 d Health- outpatient [place] visit for [address], established [id number] patient, [phone] which requires at least 2 of these 3 redd components: An expanded problem focused history; An expanded problem focused examination; Medical decision making of [facility] Office or [id number] SNOMED-CT () 2019-01-03 complete Mental other 7 d Health- outpatient [place] visit for [address], established [id number] patient, [phone] which requires at least 2 of these 3 redd components: An expanded problem focused history; An expanded problem focused examination; Medical decision making of [facility] Office or [id number] SNOMED-CT () 2019-02-04 complete Mental other 6 d Health- outpatient [place] visit for [address], established [id number] patient, [phone] which requires at least 2 of these 3 redd components: A problem focused history; A problem focused examination; [place] medical decision making. [place] Office or [id number] SNOMED-CT () 2018-11-01 complete Mental other 6 d Health- outpatient [place] visit for [address], established [id number] patient, [phone] which requires at least 2 of these 3 redd components: A problem focused history; A problem focused examination; [place] medical decision making. Counselin SNOMED-CT () 2018-09-09 complete Mental d [address], [id number] [id number] SNOMED-CT () 2018-10-09 complete Mental d [address], [id number] [phone] SNOMED-CT () 2019-02-07 complete Mental d Health[address], [id number] [phone] SNOMED-CT () 2019-02-10 complete Mental d [address], [id number] [phone] SNOMED-CT () 2019-02-24 complete Mental d [address], [id number] [phone] Encounters/Encounter Diagnoses Encounter Name Encounter Diagnosis Diagnosis Diagnosis Date of Service Code Code Name CodeSystem Diagnosis Delivery Location Psychotherapy - 58163 [id number] Major SNOMED-CT 2019-02-24 Behavioral Individual 30 depressive Health min disorder, Clinic [facility] recurrent, [place] [address], remission [place], [place], [id number] Vital Signs No Information Social History Element Description Description Start End Code CodeSystem AdditionalInfo Date Date SexAssignedAtBirth Male 1965-1 M AdministrativeGender 04-08 Hospital Discharge Instructions Reason For Referral Medical Equipment FDA Assessments
[2019-05-16 17:15] LABS: ABS Basophils 0.1 10^3/ul (0-0.2); ABS Eosinophils 0.3 10^3/ul (0-0.6); ABS Lymphocytes 2.1 10^3/ul (1.0-4.8); ABS Monocytes 0.6 10^3/ul (0-0.8); ABS Neutrophils 4.1 10^3/ul (1.5-7.7); Eosinophil % 4.3 %; Hematocrit 45 % (42-52); Hemoglobin 15.7 g/dL (14.0-18.0); Lymphocyte % 29.7 %; Mean Corpuscular HGB Conc 35 g/dL (31-36); Mean Corpuscular Hemoglobin 35 pg (27-31); Mean Corpuscular Volume 100 fL (80-94); Mean Platelet Volume 8.5 fL (7.4-10.4); Nucleated Red Blood Cells % 0.1; Platelet Count 172 10^3/uL (150-450); Red Blood Count 4.45 10^6 /uL (4.18-5.48); Red Cell Distribution Width 13 % (10-15); White Blood Count 7.2 10^3/uL (3.5-10.8)
[2019-05-16 17:38] LABS: ALT 19 U/L (7-52); Albumin 4.5 g/dL (3.2-5.2); Albumin/Globulin Ratio 1.7 (1-3); Alkaline Phosphatase 77 U/L (34-104); BUN/Creatinine Ratio 33.3 (8-20); Blood Urea Nitrogen 19 mg/dL (6-24); CO2 Carbon Dioxide 26 mmol/L (22-32); Calcium 9.6 mg/dL (8.6-10.3); Chloride 102 mmol/L (101-111); EGFR African American 181.6 (>60); EGFR Non-African American 150.1 (>60); Globulin 2.6 g/dL (2-4); Glucose 216 mg/dL (70-100); Sodium 136 mmol/L (135-145); Total Protein 7.1 g/dL (6.4-8.9)
[2019-05-16 18:00] LABS: Acetaminophen < 15 mcg/mL; Alcohol < 10 mg/dL (<10); Salicylate < 2.50 mg/dL (<30)
[2019-05-16 18:08] LABS: Anion Gap 8 mmol/L (2-11)
[2019-05-16 18:11] LABS: Urine Appearance Clear; Urine Bilirubin Negative (Negative); Urine Blood Negative (Negative); Urine Color Straw; Urine Glucose 3+(>=500 mg/dL) (Negative); Urine Ketones Negative (Negative); Urine Nitrite Negative (Negative); Urine Protein Negative (Negative); Urine Specific Gravity 1.025 (1.010-1.030); Urine Urobilinogen Negative (Negative)
[2019-05-16 18:15] LABS: TSH (Thyroid Stimulating Horm) 0.55 mcIU/mL (0.34-5.60)
[2019-05-16 18:34] LABS: Urine Benzodiazepine Screen None Detected (None Detect); Urine Opiates Screen None Detected (None Detect)
[2019-05-16 19:26] LABS: Potassium Redraw 4.1 mmol/L (3.5-5.0)
[2019-05-16] MEDS ORDERED: LORazepam TAB(*) 1 MG PO ONE (21:24)
[2019-05-16 22:06] VITALS: BP 155/86
== END 2019-05-16 22:04 | disposition home or self-care (01) ==
LOC: ED 16:22
DX: R07.89 Other chest pain (principal); F32.9 Major depressive disorder, single episode, unspecified; R45.851 Suicidal ideations; R06.02 Shortness of breath; E11.9 Type 2 diabetes mellitus without complications; Z79.4 Long term (current) use of insulin; E78.00 Pure hypercholesterolemia, unspecified; I10 Essential (primary) hypertension; J44.9 Chronic obstructive pulmonary disease, unspecified; K21.9 Gastro-esophageal reflux disease without esophagitis; F41.9 Anxiety disorder, unspecified; Z79.82 Long term (current) use of aspirin; Z79.899 Other long term (current) drug therapy; Z90.49 Acquired absence of other specified parts of digestive tract; Z91.09 Other allergy status, other than to drugs and biological substances; Z88.6 Allergy status to analgesic agent; F17.210 Nicotine dependence, cigarettes, uncomplicated
CPT/HCPCS: 36415; 71046; 80053; 80307; 80320; 80329; 81003; 83690; 84443; 84484; 85025; 93005; 99285; A9270-GY; G0480

== ENCOUNTER 2019-05-29 14:11 | Emergency (ER) | payer MEDICARE, MEDICAID ==
--- OUTSIDE RECORDS SUMMARY | 2019-05-29 14:25 | XMS REPORT ---
:1965 Author Organization [facility] Care Team Providers Name Role Phone CHELSEA VEE Primary Care Physician Unavailable Allergies, Adverse Reactions, Alerts Allergy Code CodeSystem Reaction Severity Criticality Status Start Substance Date Moderate Medications Medication Medication Medication Start Stop Route Dose Status Fill Code CodeSystem Date Date Instructions gabapentin 706051 RxNorm oral 300 mg active for 30 2-20 capsule day(s) venlafaxine 085781 RxNorm 2019- oral 75 mg 1 completed Take 1 07-11 08- capsule, capsule extended every morning release for 30 24hr day(s) every morning venlafaxine 284424 RxNorm 2019- oral 75 mg completed for 30 12-03 10-18 capsule, day(s) extended release 24hr prazosin 391012 RxNorm 2019- oral 1 mg 1 completed Take 1 08-23 08-29 capsule capsule once once a a day for 30 day day(s) Flovent HFA 252327 RxNorm 2016-03 inhl 220 active for 60 0-23 mcg/actu day(s) ation HFA aerosol inhaler atorvastatin 304561 RxNorm oral 20 mg active for 7 9-12 tablet day(s) doxepin 9727245 RxNorm oral 150 mg active for 90 6-07 capsule day(s) prazosin 141676 RxNorm 2019- oral 2 mg completed for 30 5-29 05-08 capsule day(s) testosterone 8089331 RxNorm TD 1 % (25 active for 30 6-14 mg/2.5gr day(s) am) gel in packet venlafaxine 738818 RxNorm 2019- oral 150 mg 1 completed Take 1 09-26-17 capsule, capsule extended every morning release for 30 24hr day(s) every morning ranitidine HCl 068134 RxNorm 2016-03 oral 150 mg active for 90 0-05 tablet day(s) prazosin 487499 RxNorm 2019- oral 1 mg completed for 30 4-26 05-26 capsule day(s) Humalog Mix 792909 RxNorm subQ 100 active for 20 75-25 KwikPen 7-05 unit/mL day(s) (75-25) insulin pen prazosin 809759 RxNorm oral 2 mg 2 active Take 2 8-13 capsule capsule at at bedtime for bedtime 30 day(s) prazosin 654276 RxNorm 2019- oral 1 mg completed for 14 9-12 06-07 capsule day(s) prazosin 573650 RxNorm 2018- oral 1 mg 1 completed Take 1 11-14-27 capsule capsule once once a a day for 30 day day(s) venlafaxine 728190 RxNorm 2019- oral 75 mg 1 completed Take 1 06-25 07-08 capsule, capsule extended every morning release for 30 24hr day(s) every morning prazosin 810906 RxNorm 2019- oral 2 mg 2 completed Take 2 4- 07-25 capsule capsule at at bedtime for bedtime 30 day(s) lisinopril 493825 RxNorm oral 5 mg active for 90 6-07 tablet day(s) Novolog Mix 802846 RxNorm subQ 100 active for 84 70-30FlexPen 9-06 unit/mL day(s) U-100 (70-30) insulin pen Aspir-Low 0457199 RxNorm 2016-03 oral 81 mg active for 30 1-26 tablet,d day(s) elayed release (DR/EC) prazosin 185976 RxNorm 2018-03 2020- oral 1 mg 1 active Take 1 04-14 02-25 capsule capsule once once a a day for 30 day day(s) venlafaxine 870362 RxNorm 2018-03 2019- oral 37.5 mg completed Take 1 0-18 11-19 1 capsule capsule, every morning extended for 14 release day(s) 24hr every morning venlafaxine 529116 RxNorm 2019- oral 150 mg completed for 30 1-24 04-25 capsule, day(s) extended release 24hr Problems Problem Name Code CodeSystem Alternate Alternate Start End Status Narrative Code CodeSystem Date Date Major [id number] SNOMED-CT 2018- Active 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, recurrent, in partial remission Relevant diagnostic tests/laboratory data Narrative No Information Procedures Procedure Code CodeSystem Target Date of Status Service Device Device Device Name Site Procedure Delivery Code Name UID Location Psychotherap [id number] SNOMED-CT () 2018-10-16 complete Mental y, 45 04 d Health- minutes with [place] patient [address], [phone] [id number] Psychotherap 360431 SNOMED-CT () 2018-10-24 complete Mental y, 45 04 d Health- minutes with [place] patient [address], [phone] [phone] Office or [id number] SNOMED-CT () 2018-06-25 complete Mental other 7 d Health- outpatient [place] visit for [address] established [id number] patient, [phone] which requires at least 2 of these 3 redd components: An expanded problem focused history; An expanded problem focused examination; Medical decision making of low Office or 515122 SNOMED-CT () 2018-07-24 complete Mental other 7 d Health- outpatient [place] visit for [address], established [id number] patient, [phone] which requires at least 2 of these 3 redd components: An expanded problem focused history; An expanded problem focused examination; Medical decision making of low Office or [id number] SNOMED-CT () 2018-10-17 complete Mental other 7 d Health- outpatient [place] visit for [address] established [id number] patient, [phone] which requires at least 2 of these 3 redd components: An expanded problem focused history; An expanded problem focused examination; Medical decision making of low Office or [id number] SNOMED-CT () 2018-12-03 complete Mental other 7 d Health- outpatient [place] visit for [address], established [id number] patient, [phone] which requires at least 2 of these 3 redd components: An expanded problem focused history; An expanded problem focused examination; Medical decision making of [facility] Office or [id number] SNOMED-CT () 2019-01-03 complete Mental other 7 d Health- outpatient [place] visit for [address], established [id number] patient, [phone] which requires at least 2 of these 3 redd components: An expanded problem focused history; An expanded problem focused examination; Medical decision making of [facility] Office or 406376 SNOMED-CT () 2019-03-27 complete Mental other 6 d Health- outpatient [place] visit for [address], established [id number] patient, [phone] which requires at least 2 of these 3 redd components: A problem focused history; A problem focused examination; [place] medical decision making. [place] Office or [id number] SNOMED-CT () 2019-02-04 complete Mental other 6 d Health- outpatient [place] visit for [address], established [id number] patient, [phone] which requires at least 2 of these 3 redd components: A problem focused history; A problem focused examination; [place] medical decision making. [place] Office or 119074 SNOMED-CT () 2018-11-01 complete Mental other 6 d Health- outpatient [place] visit for [address], established [id number] patient, [phone] which requires at least 2 of these 3 redd components: A problem focused history; A problem focused examination; [place] medical decision making. Counselin SNOMED-CT () 2018-09-09 complete Mental d Health- [place], [id number] [phone] SNOMED-CT () 2018-10-09 complete Mental d Health- [place], [id number] [phone] SNOMED-CT () 2019-02-07 complete Mental d Health- [place], [id number] [phone] SNOMED-CT () 2019-02-10 complete Mental d [facility] [address] [place], [place], [phone] SNOMED-CT () 2019-02-24 complete Mental d [facility] [address] [place], [place], [id number] [phone] SNOMED-CT () 2019-03-18 complete Mental d [facility] [address] [place], [place], [id number] [phone] SNOMED-CT () 2019-03-24 complete Mental d [facility] [address] [place], [place], [id number] [phone] Encounters/Encounter Diagnoses Encounter Name Encounter Diagnosis Diagnosis Diagnosis Date of Service Code Code Name CodeSystem Diagnosis Delivery Location [facility] [id number] Major SNOMED-CT 2019-03-27 Behavioral Established depressive Health patient 10 disorder, Clinic 201 Minutes recurrent, [facility] in [address], [place], [place], [phone] Vital Signs No Information Social History Element Description Description Start End Code CodeSystem AdditionalInfo Date Date SexAssignedAtBirth Male 1965-1 M AdministrativeGender 04-08 Hospital Discharge Instructions Reason For Referral Medical Equipment FDA Assessments
--- NOTE | 2019-05-29 14:58 | ED ---
Laceration/Wound HPI - HPI Summary HPI Summary: year old _MF _present[facility] accompanied by_ with a chief complaint of _ since _, worse since _. The patient rates the pain _/10 in severity. Symptoms aggravated by _. Symptoms alleviated by _. Patient reports Patient denies - History of Current Complaint Stated Complaint: GENERAL ILLNESS PER EMS Time Seen by Provider: 05/29/19 14:55 Pain Intensity: 0 - Additional Pertinent History Primary Care Physician: [id number] - Allergy/Home Medications Allergies/Adverse Reactions: Allergies Allergy/AdvReac Type Severity Reaction Status Date / Time aspirin Allergy Unknown Verified 10/13/18 10:49 Reaction Details clozapine [From Clozaril] Allergy See Comment Verified 11/15/17 16:57 NSAIDS (Non-Steroidal Allergy Bleeding Verified 11/15/17 16:57 Anti-Inflamma quetiapine Allergy Altered Verified 11/15/17 16:57 Mental Status Home Medications: Home Medications Docusate CAP* [Colace Cap*] 100 mg PO BID 08/02/12 [History Confirmed 05/16/19] Lisinopril TAB* [Prinivil TAB 5 MG*] 5 mg PO QAM 06/09/13 [History Confirmed ] Aspirin EC TAB* [Ecotrin EC Low Dose 81 MG*] 81 mg PO DAILY 11/07/17 [History Confirmed 05/16/19] Fluticasone HFA 220 mcg(NF) [Flovent Hfa 220 Mcg(NF)] 2 puff INH DAILY 11/07/17 [History Confirmed 05/16/19] Gabapentin CAP(*) [Neurontin 300 CAP(*)] 300 mg PO TID 11/07/17 [History Confirmed 05/16/19] Pravastatin (NF) [Pravachol (NF)] 40 mg PO DAILY 11/07/17 [History Confirmed ] diPHENhydraMINE PO* [Benadryl PO 25 MG TAB*] 25 mg PO TID PRN 11/07/17 [History Confirmed 05/16/19] Cyclobenzaprine TAB* [Flexeril 10 MG TAB*] 10 mg PO DAILY PRN #7 tab 11/28/17 [ Rx Confirmed 05/16/19] Empagliflozin (NF) [Jardiance] 25 mg PO DAILY #7 tablet 11/28/17 [Rx Confirmed 05/16/19] Fluticasone NASAL SPRAY 50MCG* [Flonase NASAL SPRAY 50MCG*] 1 spray BOTH NARES DAILY #1 btl 11/28/17 [Rx Confirmed 05/16/19] Gabapentin CAP(*) [Neurontin 300 CAP(*)] 600 mg PO BEDTIME #28 cap 11/28/17 [Rx Confirmed 05/16/19] Prazosin 1 mg CAP [Minipress 1 mg CAP] 4 mg PO BEDTIME #56 cap 11/28/17 [Rx Confirmed 05/16/19] hydrOXYzine HCL TAB* [Atarax 25 MG TAB*] 25 mg PO BID PRN #28 tab 11/28/17 [Rx Confirmed 05/16/19] Fenofibrate [Tricor] 54 mg PO DAILY 30 Days tab 10/15/18 [Rx Confirmed 05/16/19 ] Acetaminophen TAB* [Tylenol TAB*] 325 mg PO Q6H PRN 01/08/19 [History Confirmed 05/16/19] Albuterol/Ipratropium RESP(NF) [Combivent Respimat (NF)] 1 aer INH QID 03/13/19 [History Confirmed 05/16/19] Clotrimazole 1% TOPICAL (NF) [Lotrimin 1% TOPICAL (NF)] 1 applic TOPICAL BID [History Confirmed 05/16/19] Doxepin (NF) 100 mg PO BEDTIME 03/13/19 [History Confirmed 05/16/19] Famotidine TAB* [Pepcid 20 MG TAB*] 20 mg PO DAILY 03/13/19 [History Confirmed 05/16/19] Insulin Lispro Protamin/Lispro [Humalog Mix 75-25 Kwikpen 3 ml x 5 Pens] 1 inj SUBCUT .UP TO 200U DAILY MDD 200 unit 03/13/19 [History Confirmed 05/16/19] Methylcellulose (with Sugar) [Citrucel Powder] 1 gm PO DAILY 03/13/19 [History Confirmed 05/16/19] Mupirocin 2% OINT* [Bactroban 2 % Oint*] 1 applic TOPICAL BID PRN 03/13/19 [ History Confirmed 05/16/19] Nicotine Inhaler* (NF) [Nicotine Inhaler*] 10 mg INH Q2H PRN 03/13/19 [History Confirmed 05/16/19] Polyethylene Glycol 3350* [Miralax (17 GM DOSE HERMELINDA)] 17 gm PO DAILY PRN [History Confirmed 05/16/19] Prazosin 1 mg CAP [Minipress 1 mg CAP] 1 mg PO 1200 03/13/19 [History Confirmed 05/16/19] Testosterone Gel 25 mg (Nf) [Testosterone Gel 25 mg/2.5 g] 25 mg TOPICAL DAILY 03/13/19 [History Confirmed 05/16/19] Vit B Comp/C/FA/Iron Sulf/Shannon [Stress Formula with Iron Tab] 1 tab PO DAILY [History Confirmed 05/16/19] Tobramycin/Dexameth OPTH.SUSP* [Tobradex 0.3-0.1%*] 1 drop BOTH EYES Q6HR [History Confirmed 05/16/19] PMH/Surg Hx/FS Hx/Imm Hx Endocrine/Hematology History: Reports: Hx Diabetes, Hx Anemia, Other Endocrine/ Hematological Disorders - large RBCs per pt Denies: Hx Thyroid Disease Cardiovascular History: Reports: Hx Angina, Hx Hypercholesterolemia, Hx Hypertension Denies: Hx Congestive Heart Failure, Hx Coronary Artery Disease, Hx Myocardial Infarction, Hx Peripheral Vascular Disease, Hx Valvular Heart Disease Respiratory History: Reports: Hx Asthma, Hx Chronic Obstructive Pulmonary Disease (COPD), Hx Pneumonia, Hx Sleep Apnea - NOT USING CPAP ANY MORE, Other Respiratory Problems/Disorders - PNEUMONIA, LAST WINTER GI History: Reports: Hx Gall Bladder Disease, Hx Gastroesophageal Reflux Disease , Hx Gastrointestinal Bleed, Hx Irritable Bowel, Other GI Disorders - hemorroids , frequent constipation Denies: Hx Jaundice, Hx Ulcer History: Reports: Other Problems/Disorders - occassional hesitation, UTI Denies: Hx Renal Disease Musculoskeletal History: Reports: Hx Arthritis, Hx Tendonitis, Other Musculoskeletal History - ankle fs, DDD in neck, 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 Sensory History: Reports: Hx Cataracts - removed, Hx Contacts or Glasses, Other Sensory Impairments - LENS IMPLANTS BILATERAL Denies: Hx Deafness, Hx Hearing Aid Opthamlomology History: Reports: Hx Cataracts - removed, Hx Contacts or Glasses , Other Sensory Impairments - LENS IMPLANTS BILATERAL Neurological History: Reports: Hx Developmental Delay, Other Neuro Impairments/ Disorders - HEAD INJURY AT 4 YEARS OLD Psychiatric History: Reports: Hx Anxiety, Hx Autism, Hx Depression, Hx Post Traumatic Stress Disorder, Hx Inpatient Treatment, Hx Community Mental Health Tx , Hx Bipolar Disorder, Hx Suicide Attempt, Hx of Violent Episodes Against Others , Other Psychiatric Issues/Disorders - mood disorder Denies: Hx Eating Disorder, Hx Schizophrenia - Surgical History Surgery Procedure, Year, and Place: 2003 LEFT ankle FRACTURE [place]. wisdom teeth. 1999 cholecystectomy; [place]. bilateral cataract removal Hx Anesthesia Reactions: No - Immunization History Date of Tetanus Vaccine: unknown Date of Influenza Vaccine: unknown Infectious Disease History: No Infectious Disease History: Denies: Hx Clostridium Difficile, Hx Hepatitis, Hx Human Immunodeficiency Virus (HIV), Hx of Known/Suspected MRSA, Hx Shingles, Hx Tuberculosis, Traveled Outside the [place] in Last 30 Days - Family History Known Family History: Positive: Diabetes - Social History Alcohol Use: Rare Alcohol Amount: RECOVERING ALCOHOLIC, 2005 Hx Substance Use: No Substance Use Type: Reports: None Substance Use Comment - Amount & Last Used: staes he hasn't used in years Hx Tobacco Use: Yes Smoking Status (MU): Current Every Day Smoker Type: Cigarettes Amount Used/How Often: 1/2 PPD 27 YRS Length of Time of Smoking/Using Tobacco: 30 years Have You Smoked in the Last Year: Yes Physical Exam Vital Signs On Initial Exam: Initial Vitals Temp Pulse Resp BP Pulse Ox 98.5 F 96 16 142/88 97 05/29/19 14:14 05/29/19 14:14 05/29/19 14:14 05/29/19 14:14 05/29/19 14:14 Diagnostics - Vital Signs Vital Signs Temp Pulse Resp BP Pulse Ox 05/29/19 14:14 98.5 F 96 16 142/88 97 - Laboratory Lab Statement: Any lab studies that have been ordered have been reviewed, and results considered in the medical decision making process. Discharge ED - Discharge Plan Referrals: Chinmay Pinto MD [Primary Care Provider] - - Attestation Statements Document Initiated by Scribe: Yes
--- NOTE | 2019-05-29 15:06 | ED ---
Complex/Multi-Sys Presentation - HPI Summary HPI Summary: 54 year old M presenting to [facility] with a chief complaint of a cough, chest pain , anxiety, difficulty urinating, constipation, and rhinorrhea since earlier today. The patient rates the pain 0/10 in severity. Symptoms aggravated by nothing. Symptoms alleviated by nothing. Patient reports his last bowel movement was this morning. Patient denies fever, vomiting, or diarrhea. He has a history of diabetes, autism, depression, and sleep apnea. Patient denies any recent travel out of the country. Medication list reviewed. Allergy list reviewed. Home Medications Medication Instructions Recorded Confirmed Type Docusate CAP* [Colace Cap*] 100 mg PO BID 08/02/12 05/29/19 History Lisinopril TAB* [Prinivil TAB 5 5 mg PO QAM 06/09/13 05/29/19 History MG*] Aspirin EC TAB* [Ecotrin EC Low 81 mg PO DAILY 11/07/17 05/29/19 History Dose 81 MG*] Fluticasone HFA 220 mcg(NF) 2 puff INH DAILY 11/07/17 05/29/19 History [Flovent Hfa 220 Mcg(NF)] Gabapentin CAP(*) [Neurontin 300 300 mg PO TID 11/07/17 05/29/19 History CAP(*)] Pravastatin (NF) [Pravachol (NF)] 40 mg PO DAILY 11/07/17 05/29/19 History diPHENhydraMINE PO* [Benadryl PO 25 mg PO TID PRN 11/07/17 05/29/19 History 25 MG TAB*] Cyclobenzaprine TAB* [Flexeril 10 10 mg PO DAILY PRN #7 tab 11/28/17 05/29/19 Rx MG TAB*] Empagliflozin (NF) [Jardiance] 25 mg PO DAILY #7 tablet 11/28/17 05/29/19 Rx Fluticasone NASAL SPRAY 50MCG* 1 spray BOTH NARES DAILY #1 btl 11/28/17 Rx [Flonase NASAL SPRAY 50MCG*] Gabapentin CAP(*) [Neurontin 300 600 mg PO BEDTIME #28 cap 11/28/17 05/29/19 Rx CAP(*)] Prazosin 1 mg CAP [Minipress 1 mg 4 mg PO BEDTIME #56 cap 11/28/17 05/29/19 Rx CAP] hydrOXYzine HCL TAB* [Atarax 25 MG 25 mg PO BID PRN #28 tab 11/28/17 05/29/19 Rx TAB*] Fenofibrate [Tricor] 54 mg PO DAILY 30 Days tab 10/15/18 05/29/19 Rx Acetaminophen TAB* [Tylenol TAB*] 325 mg PO Q6H PRN 01/08/19 05/29/19 History Albuterol/Ipratropium RESP(NF) 1 aer INH QID 03/13/19 05/29/19 History [Combivent Respimat (NF)] Clotrimazole 1% TOPICAL (NF) 1 applic TOPICAL BID 03/13/19 05/29/19 History [Lotrimin 1% TOPICAL (NF)] Doxepin (NF) 100 mg PO BEDTIME 03/13/19 05/29/19 History Famotidine TAB* [Pepcid 20 MG TAB*] 20 mg PO DAILY 03/13/19 05/29/19 History Insulin Lispro Protamin/Lispro 1 inj SUBCUT .UP TO 200U DAILY MDD 03/13/1905/28 History [Humalog Mix 75-25 Kwikpen 3 ml x 200 unit 5 Pens] Methylcellulose (with Sugar) 1 gm PO DAILY 03/13/19 05/29/19 History [Citrucel Powder] Mupirocin 2% OINT* [Bactroban 2 % 1 applic TOPICAL BID PRN 03/13/19 05/29/19 History Oint*] Nicotine Inhaler* (NF) [Nicotine 10 mg INH Q2H PRN 03/13/19 05/29/19 History Inhaler*] Polyethylene Glycol 3350* [Miralax 17 gm PO DAILY PRN 03/13/19 05/29/19 History (17 GM DOSE HERMELINDA)] Prazosin 1 mg CAP [Minipress 1 mg 1 mg PO 1200 03/13/19 05/29/19 History CAP] Testosterone Gel 25 mg (Nf) 25 mg TOPICAL DAILY 03/13/19 05/29/19 History [Testosterone Gel 25 mg/2.5 g] Vit B Comp/C/FA/Iron Sulf/Shannon 1 tab PO DAILY 03/13/19 05/29/19 History [Stress Formula with Iron Tab] Tobramycin/Dexameth OPTH.SUSP* 1 drop BOTH EYES Q6HR 05/16/19 05/29/19 History [Tobradex 0.3-0.1%*] - History Of Current Complaint Chief Complaint: EDGeneral Time Seen by Provider: 05/29/19 14:55 Hx Obtained From: Patient Onset/Duration: Still Present Timing: Constant Severity Currently: None Aggravating Factor(s): None Alleviating Factor(s): None Associated Signs And Symptoms: Positive: Cough, Chest Pain, Other - Anxiety; difficulty urinating; constipation; rhinorrhea;. Negative: Vomiting, Diarrhea, Fever - Allergies/Home Medications Allergies/Adverse Reactions: Allergies Allergy/AdvReac Type Severity Reaction Status Date / Time aspirin Allergy Unknown Verified 10/13/18 10:49 Reaction Details clozapine [From Clozaril] Allergy See Comment Verified 11/15/17 16:57 NSAIDS (Non-Steroidal Allergy Bleeding Verified 11/15/17 16:57 Anti-Inflamma quetiapine Allergy Altered Verified 11/15/17 16:57 Mental Status Home Medications: Home Medications Docusate CAP* [Colace Cap*] 100 mg PO BID 08/02/12 [History Confirmed 05/29/19] Lisinopril TAB* [Prinivil TAB 5 MG*] 5 mg PO QAM 06/09/13 [History Confirmed 03/07] Aspirin EC TAB* [Ecotrin EC Low Dose 81 MG*] 81 mg PO DAILY 11/07/17 [History Confirmed 05/29/19] Fluticasone HFA 220 mcg(NF) [Flovent Hfa 220 Mcg(NF)] 2 puff INH DAILY 11/07/17 [History Confirmed 05/29/19] Gabapentin CAP(*) [Neurontin 300 CAP(*)] 300 mg PO TID 11/07/17 [History Confirmed 05/29/19] Pravastatin (NF) [Pravachol (NF)] 40 mg PO DAILY 11/07/17 [History Confirmed 03/07] diPHENhydraMINE PO* [Benadryl PO 25 MG TAB*] 25 mg PO TID PRN 11/07/17 [History Confirmed 05/29/19] Cyclobenzaprine TAB* [Flexeril 10 MG TAB*] 10 mg PO DAILY PRN #7 tab 09/12/18 [ Rx Confirmed 05/29/19] Empagliflozin (NF) [Jardiance] 25 mg PO DAILY #7 tablet 11/28/17 [Rx Confirmed 05/29/19] Fluticasone NASAL SPRAY 50MCG* [Flonase NASAL SPRAY 50MCG*] 1 spray BOTH NARES DAILY #1 btl 11/28/17 [Rx Confirmed 05/29/19] Gabapentin CAP(*) [Neurontin 300 CAP(*)] 600 mg PO BEDTIME #28 cap 11/28/17 [Rx Confirmed 05/29/19] Prazosin 1 mg CAP [Minipress 1 mg CAP] 4 mg PO BEDTIME #56 cap 11/28/17 [Rx Confirmed 05/29/19] hydrOXYzine HCL TAB* [Atarax 25 MG TAB*] 25 mg PO BID PRN #28 tab 11/28/17 [Rx Confirmed 05/29/19] Fenofibrate [Tricor] 54 mg PO DAILY 30 Days tab 10/15/18 [Rx Confirmed 05/29/19 ] Acetaminophen TAB* [Tylenol TAB*] 325 mg PO Q6H PRN 01/08/19 [History Confirmed 05/29/19] Albuterol/Ipratropium RESP(NF) [Combivent Respimat (NF)] 1 aer INH QID 03/13/19 [History Confirmed 05/29/19] Clotrimazole 1% TOPICAL (NF) [Lotrimin 1% TOPICAL (NF)] 1 applic TOPICAL BID [History Confirmed 05/29/19] Doxepin (NF) 100 mg PO BEDTIME 03/13/19 [History Confirmed 05/29/19] Famotidine TAB* [Pepcid 20 MG TAB*] 20 mg PO DAILY 03/13/19 [History Confirmed 05/29/19] Insulin Lispro Protamin/Lispro [Humalog Mix 75-25 Kwikpen 3 ml x 5 Pens] 1 inj SUBCUT .UP TO 200U DAILY MDD 200 unit 03/13/19 [History Confirmed 05/29/19] Methylcellulose (with Sugar) [Citrucel Powder] 1 gm PO DAILY 03/13/19 [History Confirmed 05/29/19] Mupirocin 2% OINT* [Bactroban 2 % Oint*] 1 applic TOPICAL BID PRN 03/13/19 [ History Confirmed 05/29/19] Nicotine Inhaler* (NF) [Nicotine Inhaler*] 10 mg INH Q2H PRN 03/13/19 [History Confirmed 05/29/19] Polyethylene Glycol 3350* [Miralax (17 GM DOSE HERMELINDA)] 17 gm PO DAILY PRN [History Confirmed 05/29/19] Prazosin 1 mg CAP [Minipress 1 mg CAP] 1 mg PO 1200 03/13/19 [History Confirmed 05/29/19] Testosterone Gel 25 mg (Nf) [Testosterone Gel 25 mg/2.5 g] 25 mg TOPICAL DAILY 03/13/19 [History Confirmed 05/29/19] Vit B Comp/C/FA/Iron Sulf/Shannon [Stress Formula with Iron Tab] 1 tab PO DAILY [History Confirmed 05/29/19] Tobramycin/Dexameth OPTH.SUSP* [Tobradex 0.3-0.1%*] 1 drop BOTH EYES Q6HR [History Confirmed 05/29/19] PMH/Surg Hx/FS Hx/Imm Hx Endocrine/Hematology History: Reports: Hx Diabetes, Hx Anemia, Other Endocrine/ Hematological Disorders - large RBCs per pt Denies: Hx Thyroid Disease Cardiovascular History: Reports: Hx Angina, Hx Hypercholesterolemia, Hx Hypertension Denies: Hx Congestive Heart Failure, Hx Coronary Artery Disease, Hx Myocardial Infarction, Hx Peripheral Vascular Disease, Hx Valvular Heart Disease Respiratory History: Reports: Hx Asthma, Hx Chronic Obstructive Pulmonary Disease (COPD), Hx Pneumonia, Hx Sleep Apnea - NOT USING CPAP ANY MORE, Other Respiratory Problems/Disorders - PNEUMONIA, LAST WINTER GI History: Reports: Hx Gall Bladder Disease, Hx Gastroesophageal Reflux Disease , Hx Gastrointestinal Bleed, Hx Irritable Bowel, Other GI Disorders - hemorroids , frequent constipation Denies: Hx Jaundice, Hx Ulcer History: Reports: Other Problems/Disorders - occassional hesitation, UTI Denies: Hx Renal Disease Musculoskeletal History: Reports: Hx Arthritis, Hx Tendonitis, Other Musculoskeletal History - ankle fs, DDD in neck, 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 Sensory History: Reports: Hx Cataracts - removed, Hx Contacts or Glasses, Other Sensory Impairments - LENS IMPLANTS BILATERAL Denies: Hx Deafness, Hx Hearing Aid Opthamlomology History: Reports: Hx Cataracts - removed, Hx Contacts or Glasses , Other Sensory Impairments - LENS IMPLANTS BILATERAL Neurological History: Reports: Hx Developmental Delay, Other Neuro Impairments/ Disorders - HEAD INJURY AT 4 YEARS OLD Psychiatric History: Reports: Hx Anxiety, Hx Autism, Hx Depression, Hx Post Traumatic Stress Disorder, Hx Inpatient Treatment, Hx Community Mental Health Tx , Hx Bipolar Disorder, Hx Suicide Attempt, Hx of Violent Episodes Against Others , Other Psychiatric Issues/Disorders - mood disorder Denies: Hx Eating Disorder, Hx Schizophrenia - Surgical History Surgery Procedure, Year, and Place: 2003 LEFT ankle FRACTURE [place]. wisdom teeth. 1999 cholecystectomy; [place]. bilateral cataract removal Hx Anesthesia Reactions: No - Immunization History Date of Tetanus Vaccine: unknown Date of Influenza Vaccine: unknown Infectious Disease History: No Infectious Disease History: Denies: Hx Clostridium Difficile, Hx Hepatitis, Hx Human Immunodeficiency Virus (HIV), Hx of Known/Suspected MRSA, Hx Shingles, Hx Tuberculosis, Traveled Outside the in Last 30 Days - Family History Known Family History: Positive: Diabetes - Social History Alcohol Use: Rare Alcohol Amount: RECOVERING ALCOHOLIC, 2005 Hx Substance Use: No Substance Use Type: Reports: None Substance Use Comment - Amount & Last Used: staes he hasn't used in years Hx Tobacco Use: Yes Smoking Status (MU): Current Every Day Smoker Type: Cigarettes Amount Used/How Often: 1/2 PPD 27 YRS Length of Time of Smoking/Using Tobacco: 30 years Have You Smoked in the Last Year: Yes Review of Systems Negative: Fever Positive: Nasal Discharge Positive: Chest Pain Positive: Cough Positive: Other - Constipation. Negative: Vomiting, Diarrhea Positive: other - Difficulty urinating Positive: Anxious All Other Systems Reviewed And Are Negative: Yes Physical Exam - Summary Physical Exam Summary: Constitutional: Well-developed, Well-nourished, Alert. (-) Distressed Skin: Warm, Dry HENT: Normocephalic; Atraumatic Eyes: Conjunctiva normal Neck: Musculoskeletal ROM normal neck. (-) JVD, (-) Stridor, (-) Tracheal deviation Cardio: Rhythm regular, rate normal, Heart sounds normal; Intact distal pulses; Radial pulses are 2+ and symmetric. (-) Murmur Pulmonary/Chest wall: Effort normal. (-) Respiratory distress, (-) Wheezes, (-) Rales Abd: Soft, (-) tenderness, (-) Distension, (-) Guarding, (-) Rebound Musculoskeletal: (-) Edema Lymph: (-) Cervical adenopathy Neuro: Alert, Oriented x3 Psych: Mood and affect Normal Triage Information Reviewed: Yes Vital Signs On Initial Exam: Initial Vitals Temp Pulse Resp BP Pulse Ox 98.5 F 96 16 142/88 97 05/29/19 14:14 05/29/19 14:14 05/29/19 14:14 05/29/19 14:14 05/29/19 14:14 Vital Signs Reviewed: Yes Procedures - Sedation Patient Received Moderate/Deep Sedation with Procedure: No Diagnostics - Vital Signs Vital Signs Temp Pulse Resp BP Pulse Ox 05/29/19 14:14 98.5 F 96 16 142/88 97 - Laboratory Result Diagrams: 05/29/19 15:51 05/29/19 15:51 Lab Statement: Any lab studies that have been ordered have been reviewed, and results considered in the medical decision making process. - Radiology Chest x-ray Radiology Interpretation Completed By: Radiologist Summary of Radiographic Findings: No acute cardiopulmonary process by radiograph. ED physician has reviewed this report. - EKG 16:09 Cardiac Rate: NL - 87 BPM EKG Rhythm: Sinus Rhythm Summary of EKG Findings: No ischemic changes. ED physician has reviewed and interpreted this EKG. Re-Evaluation - Re-Evaluation First Eval Re-Evaluation Time: 16:56 Comment: The patient is asking to go home. Complex Multi-Symp Course/Dx Course Of Treatment: Patient is here with multiple non-descript complaints. Patient cannot really focus on providing information regarding each complaint. Patient complains of vague abdominal pain, chest pain, and his biggest complaint is anxiety. Patient had an EKG performed which showed no change from prior. Patient had blood performed which was grossly unremarkable. Patient eventually wanted to leave the hospital and he was deemed to not have an emergent condition so he was discharged. - Diagnoses Provider Diagnoses: Anxiety, Chest pain Discharge ED - Sign-Out/Discharge Documenting (check all that apply): Patient Departure - Discharge Plan Condition: Stable Disposition: HOME Patient Education Materials: Chest Pain (ED), Anxiety (ED) Referrals: Chinmay Pinto MD [Primary Care Provider] - 3 Days Additional Instructions: Follow-up with your PCP in 1-3 days. Return to the emergency department for any worsening or concerning symptoms. - Billing Disposition and Condition Condition: STABLE Disposition: Home - Attestation Statements Document Initiated by Scribe: Yes Documenting Scribe: Letitia Major Provider For Whom Nancieibsoco is Documenting (Include Credential): Bradley Macias MD Scribe Attestation: I, Letitia Major, chinoed for Bradley Macias MD on 05/29/19 at 1830. Scribe Documentation Reviewed: Yes Provider Attestation: The documentation as recorded by the Letitia dunham accurately reflects the service I personally performed and the decisions made by me, Bradley Macias MD Status of Scribe Document: Viewed
[2019-05-29 16:07] LABS: ABS Basophils 0.1 10^3/ul (0-0.2); ABS Eosinophils 0.3 10^3/ul (0-0.6); ABS Lymphocytes 2.8 10^3/ul (1.0-4.8); ABS Monocytes 0.6 10^3/ul (0-0.8); ABS Neutrophils 4.7 10^3/ul (1.5-7.7); Hematocrit 46 % (42-52); Hemoglobin 16.3 g/dL (14.0-18.0); Lymphocyte % 33.2 %; Mean Corpuscular HGB Conc 35 g/dL (31-36); Mean Corpuscular Hemoglobin 35 pg (27-31); Mean Corpuscular Volume 100 fL (80-94); Mean Platelet Volume 8.4 fL (7.4-10.4); Nucleated Red Blood Cells % 0.1; Platelet Count 176 10^3/uL (150-450); Red Blood Count 4.62 10^6 /uL (4.18-5.48); Red Cell Distribution Width 13 % (10-15); White Blood Count 8.5 10^3/uL (3.5-10.8)
[2019-05-29 16:25] LABS: BUN/Creatinine Ratio 20.6 (8-20); Calcium 9.6 mg/dL (8.6-10.3); EGFR African American 148.2 (>60); EGFR Non-African American 122.5 (>60)
[2019-05-29 17:38] LABS: Potassium 3.9 mmol/L (3.5-5.0)
[2019-05-29 19:35] VITALS: BP 140/78
== END 2019-05-29 17:00 | disposition home or self-care (01) ==
LOC: ED 14:11
DX: F41.9 Anxiety disorder, unspecified (principal); R07.9 Chest pain, unspecified; R05 Cough; K59.00 Constipation, unspecified; E11.9 Type 2 diabetes mellitus without complications; I10 Essential (primary) hypertension; E78.00 Pure hypercholesterolemia, unspecified; Z79.899 Other long term (current) drug therapy; Z88.6 Allergy status to analgesic agent; F43.10 Post-traumatic stress disorder, unspecified; F17.210 Nicotine dependence, cigarettes, uncomplicated
CPT/HCPCS: 36415; 71045; 80048; 84484; 85025; 93005; 99283